=== PATIENT | female | born 1945 | race Caucasian/White ===

== ENCOUNTER 2020-11-30 09:54 | Inpatient (IN) | payer MEDICARE, OTHER, SELFPAY ==
[2020-11-30] VITALS (22 sets, daily range): BP systolic 111–140; BP diastolic 65–96; PULSE 69–115; RESP 12–41; TEMP 37.2–38.4; O2SAT 85–99; BMI 23.1; BMI 25.4
--- NOTE | 2020-11-30 09:58 | EKG12_ITS ---
Test Reason : SOB Blood Pressure : / mmHG Vent. Rate : 112 BPM Atrial Rate : 112 BPM P-R Int : 120 ms QRS Dur : 090 ms QT Int : 330 ms P-R-T Axes : 031 -36 027 degrees QTc Int : 450 ms Sinus tachycardia Left axis deviation Low voltage QRS (Limb Leads) Abnormal ECG Confirmed by LUCÍA CARLSON, YESSY ([id number]), video news editor LAKSHMI BEVERLY ([id number]) on 12/04/2020 12:19:33 PM Referred By: EMELYN Confirmed By:YESSY CASTREJON MD
--- NOTE | 2020-11-30 09:59 | CT_ITS ---
STUDY: CT BRAIN WITHOUT CONTRAST REASON FOR EXAM: Female, 75 years old. AMS RADIATION DOSAGE (If Supplied By Facility): CTDIvol = ( 44.99 ) mGy, DLP = ( 745.49 ) mGycm TECHNIQUE: Transaxial CT imaging of the brain was performed without administration of intravenous contrast material. Individualized dose optimization techniques were used for this CT. COMPARISON: No relevant priors. FINDINGS: Normal soft tissue structures. Normal calvarium. There is mild cerebral atrophy with widening of the extra-axial spaces and ventricular dilatation. Normal white matter tracts of the cerebral hemispheres. Normal basal ganglia and thalami. Normal brainstem. There is mild cerebellar atrophy. There is no intracranial hemorrhage. There are no findings of an acute ischemic infarction. Normal visualized paranasal sinuses. CT/Brain/Head without Contrast IMPRESSION: Chronic involutional changes of the brain. Electronically Signed: Luis Carlos Cole MD at 11:14 EDT , Service support ,
--- NOTE | 2020-11-30 10:01 | EDS_ITS ---
HPI History of Present Illness Chief Complaint: Shortness of Breath Informant: EMS Limited: other (Obtunded) Narrative Narrative: Patient is a 75-year-old female presenting from home via EMS for altered mental status and erratic breathing. Patient lives at home with her son. Per report from EMS, son notes the patient seem to be breathing erratically around 4:45 AM. She continued to have erratic breathing and was unresponsive so the son called EMS this morning. Per EMS she was 35% on room air. She was placed on a nonrebreather. Her glucose was 181. She had a temperature of 102.1. Son reports that patient is healthy and does not have any medical problems. Her son is not at the bedside yet. Patient did have an episode of vomiting in route is given a dose of IM Zofran. PFSH PFSH Medical History (Updated 11/30/20 @ 18:[address] Suzanne Varner, DO) Anxiety Depression Kidney stones Migraines Pancreatitis Rheumatoid arthritis Vaginal prolapse Home Medications [id number] [Excedrin Extra Strength] 2 tab PO Q6H PRN 11/30/20 [History Last Taken Unknown] multivitamin 1 cap PO DAILY 11/30/20 [History Last Taken Unknown] Allergy/AdvReac Type Severity Reaction Status Date / Time No Known Allergies Allergy Verified 11/30/20 11:39 Surgical History (Updated 11/30/20 @ 14:54 by Jeniffer Jarvis) History of appendectomy History of cholecystectomy Social History (Updated 11/30/20 @ 12:[address] Sonny Phillips, ) household members: family Smoking Status: Never smoker substance use type: does not use ROS ROS ED Review of Systems ROS Unobtainable: due to encephalopathy EXAM Physical Exam Const Vital Signs: 11/30/20 09:56 11/30/20 10:05 11/30/20 11:48 Temperature 101.2 F H 101.2 F H Temperature Source Temporal Core Pulse Rate 115 H 108 H 100 Respiratory Rate 41 H 38 H 28 H Respiratory Pattern Tachypnea Blood Pressure 140/84 H 111/87 H Blood Pressure Mean 102 95 Pulse Ox 85 98 91 Oxygen Delivery Method Nasal Cannula Bi-pap Oxygen Flow Rate (L/min) 16 Fraction of Inspired Oxygen (FIO2) 100 Positive well nourished and well developed General Appearance ED: well developed HEENT Reports moist mucous membranes Negative for trauma Eyes EOMs intact bilaterally Neck supple and no JVD Chest Wall inspection of chest normal Resp Resp Narrative: Tachypneic, transmitted upper airway noises. No appreciated crackles Auscultation: Negative for rhonchi, wheezes or diminished lung sounds Cardio no murmurs Rate: tachycardic GI normal to inspection, nondistended, normoactive bowel sounds Extremity normal to inspection Extremity Narrative: No obvious deformity Neuro no sensory deficits noted Neuro Narrative: Patient was all extremities to pain but does not follow commands. No lateralizing neurologic deficits noted [place] Coma Scale: document GCS findings To Voice Withdraws to Pain Confused 11 Sensorium / Orientation: orientation impaired and lethargic Skin no rashes or lesions noted MDM MDM MDM Narrative Medical decision making narrative: Patient is brought to the emergency room via EMS. She was found unresponsive by son around 9 AM. She is significantly hypoxic and obtunded per EMS. Patient placed on nonrebreather in route. She was given a dose of Zofran in route for an episode of vomiting. On arrival patient's O2 saturation is improving however she still hypoxic. She is febrile. Concern is that she has infection causing hypoxia and encephalopathy. She does not have any focal neurologic deficits. She is minimally responsive does improve while in the ER. Patient found to have a mild LEI, elevated troponin of 1.120 and an elevated lactate of 5.0. I suspect this is from hypoxia. Patient is not have any acute EKG changes consistent with ACS. Her Covid test is positive and her chest x-ray is consistent with COVID-19 pneumonia. Patient is given IV Decadron. She is placed on BiPAP for hypoxia and work of breathing. Given the amount of hypoxia she is having I did obtain a CTA to rule out associated PE. This was consistent with Covid pneumonia but no PE. Patient be admitted to the ICU for further treatment and monitoring. As she is given a liter of fluid in the ED. Son did arrive to the bedside. He states that she has been having symptoms consistent with a sinus infection/ear pain for the past 3 to 4 days. She started to feel more tired last night. Her respiratory symptoms seem to start last night as well. No known sick contacts. Has not had a Covid vaccine. Lab Data Labs: Laboratory Results - last 24 hr 11/30/20 11/30/20 11/30/20 10:00 10:00 10:00 WBC 11.4 H RBC 4.79 Hgb 14.6 Hct 43.4 MCV 90.6 MCH 30.5 MCHC 33.6 RDW Std Deviation 43.4 RDW Coeff of Leah 13.0 Plt Count 227 MPV 9.4 Immature Gran % (Auto) 1.800 H Neut % (Auto) 82.4 H Lymph % (Auto) 6.4 L [place] % (Auto) 6.6 Eos % (Auto) 2.5 Baso % (Auto) 0.3 Absolute Neuts (auto) 9.4 H Absolute Lymphs (auto) 0.73 L Nucleated RBC % 0 PT 13.6 INR 1.1 APTT 24.2 D-Dimer Quant (PE/DVT) Sodium 138 Potassium 3.8 Chloride 101 Carbon Dioxide 25.0 Anion Gap 12 BUN 34 H Creatinine 1.35 H Estim Creat Clear Calc 30.24 Est GFR (MDRD) Af Amer 49 L Est GFR (MDRD) Non-Af 41 L BUN/Creatinine Ratio 25.2 H Glucose 146 H Lactic Acid Calcium 9.3 Total Bilirubin 0.70 AST 78 H ALT 41 Alkaline Phosphatase 106 Total Creatine Kinase 226 H Troponin I 1.120 H* Total Protein 7.5 Albumin 2.7 L Globulin 4.8 H Albumin/Globulin Ratio 0.6 L Procalcitonin Urine Color Urine Clarity Urine pH Ur Specific [place] Urine Protein Urine Glucose (UA) Urine Ketones Urine Occult Blood Urine Nitrite Urine Bilirubin Urine Urobilinogen Ur Leukocyte Esterase Urine RBC Urine WBC Ur Squamous Epith Cells Urine Bacteria Fine Granular Casts Urine Mucus 11/30/20 11/30/20 11/30/20 10:00 10:00 10:00 WBC RBC Hgb Hct MCV MCH MCHC RDW Std Deviation RDW Coeff of Leah Plt Count MPV Immature Gran % (Auto) Neut % (Auto) Lymph % (Auto) [place] % (Auto) Eos % (Auto) Baso % (Auto) Absolute Neuts (auto) Absolute Lymphs (auto) Nucleated RBC % PT INR APTT D-Dimer Quant (PE/DVT) 5.74 H* Sodium Potassium Chloride Carbon Dioxide Anion Gap BUN Creatinine Estim Creat Clear Calc Est GFR (MDRD) Af Amer Est GFR (MDRD) Non-Af BUN/Creatinine Ratio Glucose Lactic Acid 5.0 H* Calcium Total Bilirubin AST ALT Alkaline Phosphatase Total Creatine Kinase Troponin I Total Protein Albumin Globulin Albumin/Globulin Ratio Procalcitonin 0.27 H Urine Color Urine Clarity Urine pH Ur Specific [place] Urine Protein Urine Glucose (UA) Urine Ketones Urine Occult Blood Urine Nitrite Urine Bilirubin Urine Urobilinogen Ur Leukocyte Esterase Urine RBC Urine WBC Ur Squamous Epith Cells Urine Bacteria Fine Granular Casts Urine Mucus 11/30/20 10:25 WBC RBC Hgb Hct MCV MCH MCHC RDW Std Deviation RDW Coeff of Leah Plt Count MPV Immature Gran % (Auto) Neut % (Auto) Lymph % (Auto) [place] % (Auto) Eos % (Auto) Baso % (Auto) Absolute Neuts (auto) Absolute Lymphs (auto) Nucleated RBC % PT INR APTT D-Dimer Quant (PE/DVT) Sodium Potassium Chloride Carbon Dioxide Anion Gap BUN Creatinine Estim Creat Clear Calc Est GFR (MDRD) Af Amer Est GFR (MDRD) Non-Af BUN/Creatinine Ratio Glucose Lactic Acid Calcium Total Bilirubin AST ALT Alkaline Phosphatase Total Creatine Kinase Troponin I Total Protein Albumin Globulin Albumin/Globulin Ratio Procalcitonin Urine Color Yellow Urine Clarity Clear Urine pH 5.0 Ur Specific [place] 1.020 Urine Protein 30 H Urine Glucose (UA) Normal Urine Ketones 50 H Urine Occult Blood 25 H Urine Nitrite Negative Urine Bilirubin Negative Urine Urobilinogen Normal Ur Leukocyte Esterase Negative Urine RBC 0 SEEN Urine WBC 0 SEEN Ur Squamous Epith Cells 0 SEEN Urine Bacteria 0 SEEN Fine Granular Casts 0-5 SEEN Urine Mucus 0 SEEN ABG Data Attestation: I personally reviewed and interpreted this ABG as follows: Interpretation: Hypoxia with no hypercapnea ABG results: ABG 11/30/20 10:08 Specimen Type ART Sample Site R Radial pH 7.57 H Bicarbonate Actual 20.3 L Total CO2 21 Base Excess -2 O2 Saturation 94 L ABG pCO2 21.9 L ABG pO2 57 L Mateusz Test Positive O2 Delivery Device NRB Liter Flow 15.0 Radiography Chest X-Ray - ED: 1 View, Read by ED Physician, Read by Radiologist, Right Infiltrate and Left Infiltrate Diagnostic Testing: Radiology Impression Brain CT 11/30/20 09:59 IMPRESSION: Chronic involutional changes of the brain. Electronically Signed: Luis Calros Cole MD at 11:14 EDT , Service support , Chest X-Ray 11/30/20 10:40 IMPRESSION: Diffuse bilateral airspace disease worse in the left hemithorax. This most likely represents pulmonary edema. Electronically Signed: Luis Carlos Cole MD at 11:13 EDT , Service support , Chest CTA 11/30/20 11:40 IMPRESSION: Diffuse bilateral airspace disease involving both upper and lower lobes. This is more prominent in the left hemithorax. Electronically Signed: Luis Carlos Cole MD at 14:48 EDT , Service support , Rhythm Strip Rhythm Strip: Sinus Tach Rate: 112 Ectopy: None EKG Initial EKG: Attestation: I personally reviewed and interpreted this EKG as follows: Interpretation: Sinus Tachycardia Comments: Sinus tachycardia rate of 112 Left axis deviation Normal intervals Normal ST segments Critical Care Time Critical care time (excluding procedures): 30-74 minutes (45), Discussing w/Patient &/or Family/Program Eligibility Specialist, Arranging Admission or Transfer and Performing Direct Patient Care at Bedside Discharge Plan Dx/Rx/DC Orders Clinical Impression: Acute respiratory failure with hypoxia, COVID-19, Metabolic encephalopathy, Elevated troponin, Lactic acidosis Disposition Disposition: Acute Care [facility] Discharge Date/Time: 11/30/20 14:00
[2020-11-30 10:15] LABS: Allen Test Positive; Base Excess -2 mmol/L (-2 to +2); Bicarbonate 20.3 mmol/L (22-26); Blood Gas Specimen Type ART; O2 Delivery Device NRB; PO2 57 mmHG (75-100); SITE R Radial; SO2 94 % (95-99); Total Carbon Dioxide 21 mmol/L; pCO2 21.9 mmHg (35-45); pH 7.57 (7.35-7.45)
[2020-11-30 10:24] LABS: Absolute Lymphocyte Count 0.73 X10^3/uL (0.83-4.51); Absolute Neutrophil Count 9.4 X10^3/uL (2.0-7.7); Basophil# 0.03 X10^3/uL; Basophil% 0.3 % (0-1); Eosinophil# 0.29 X10^3/uL; Eosinophils% 2.5 % (0-5); Hematocrit 43.4 % (37-47); Hemoglobin 14.6 g/dL (12.0-15.0); Lymphocyte # 0.73 X10^3/ul (0.83-4.51); Lymphocyte % 6.4 % (19-41); Mean Corp Hgb Conc 33.6 g/dL (32-36); Mean Corpuscular Hgb 30.5 pg (27.0-32.0); Mean Corpuscular Volume 90.6 fL (81-99); Mean Platelet Vol. 9.4 fl (6.2-12.0); Monocyte# 0.75 X10^3/uL; Monocyte% 6.6 % (0-10); NRBC Flagged by Analyzer 0 % (0-5); Neutrophil # 9.38 X10^3/uL (2.7-7.7); Neutrophil % 82.4 % (47-70); Platelet Count 227 K/mm3 (150-450); RBC Distribution Width SD 43.4 fl (35.1-43.9); Red Blood Count 4.79 M/mm3 (4.2-5.4); White Blood Count 11.4 K/mm3 (4.4-11.0)
[2020-11-30] MEDS: Acetaminophen 650 MG Suppository RC (10:30)
[2020-11-30] MEDS: 0.9% Normal Saline 1,000 ML 999 ML IV (10:30)
[2020-11-30 10:32] LABS: International Normalized Ratio 1.1; Prothrombin Time (Protime)PT. 13.6 SECONDS (11.7-14.9)
[2020-11-30 10:33] LABS: Partial Thromboplast Time 24.2 Seconds (24.1-36.2)
[2020-11-30 10:36] LABS: Bacteria 0 SEEN /hpf (None Seen); Mucous, Urine 0 SEEN /hpf (<or=2+); Red Blood Cells-Urine 0 SEEN /hpf (0-5); Squamous Epithelial Cells - UA 0 SEEN /hpf (5-10); White Blood Cells 0 SEEN /hpf (0-5)
[2020-11-30 10:39] LABS: Color, Urine Yellow (Yellow); Glucose, Dipstick Normal (Normal); Ketone-Dipstick 50 mg/dl (Negative); Leukocyte Esterase-Dipstick Negative /ul (Negative); Nitrite-Dipstick Negative (Negative); Occult Blood-Urine 25 /ul (Negative); Protein-Dipstick 30 mg/dl (Negative); Urine Bilirubin Dipstick Negative (Negative); Urine Clarity Clear (Clear); Urine Urobilinogen Normal (Normal)
--- NOTE | 2020-11-30 10:40 | RAD_ITS ---
STUDY: X-RAY CHEST REASON FOR EXAM: Female, 75 years old. Hypoxia. The patient was found unresponsive. TECHNIQUE: Single AP portable view of the chest. COMPARISON: None. FINDINGS: EKG electrodes are seen. There is evidence of bilateral airspace disease worse in the left hemithorax. This most likely represents pulmonary edema. There is no demonstrated pleural abnormality. There is mild cardiac enlargement. Normal mediastinum and brenda. Normal visualized pulmonary arteries. There is atherosclerotic tortuosity of the aortic arch and descending thoracic aorta. Normal visualized thoracic spine. Normal visualized ribs, clavicles, and shoulders. There is no demonstrated abnormality of the visualized soft tissue structures of the upper abdomen. RAD/Chest 1 View (Portable) IMPRESSION: Diffuse bilateral airspace disease worse in the left hemithorax. This most likely represents pulmonary edema. Electronically Signed: Luis Carlos Cole MD at 11:13 EDT , Service support ,
[2020-11-30 10:46] LABS: Fine Granular Cast- Urine 0-5 SEEN /lpf (0-5)
[2020-11-30 10:47] LABS: ALB/GLOB Ratio 0.6 RATIO (0.9-2.4); AST(SGOT) 78 U/L (15-37); Alanine Aminotransfer ALT/SGPT 41 U/L (13-56); Albumin, Serum 2.7 g/dL (3.2-5.0); Alkaline Phosphatase 106 U/L (45-117); Anion Gap 12 (5-15); BUN 34 mg/dL (7-18); BUN/Creat Ratio 25.2 RATIO (10-20); CPK Total, Creatine Kinase 226 U/L (26-192); Calcium,Total 9.3 mg/dL (8.5-10.1); Chloride 101 mmol/L (98-107); Creatinine, Serum 1.35 mg/dL (0.55-1.02); EST Glomerular Filtration Rate 41 mL/min (>60); Est Glom Filt Rate - Afr Amer 49 mL/min (>60); Estimated Creatinine Clearance 30.24 ml/min; Globulin 4.8 g/dL (2.2-4.2); Glucose 146 mg/dL (74-106); Potassium 3.8 mmol/L (3.5-5.1); Protein, Total 7.5 g/dL (6.4-8.2); Sodium Level 138 mmol/L (136-145)
--- NOTE | 2020-11-30 11:40 | CT_ITS ---
STUDY: CTA CHEST REASON FOR EXAM: Female, 75 years old. Hypoxia, covid, concern for pe RADIATION DOSAGE (If Supplied By Facility): CTDIvol = ( 10.9 ) mGy, DLP = ( 269.01 ) mGycm TECHNIQUE: The examination was performed with the intravenous administration of IV 100mL Isovue-370. Post-processing of the angiographic images was performed, with multiplanar reformation and 3D reconstruction. Individualized dose optimization techniques were used for this CT. COMPARISON: None. FINDINGS: Normal enhancement of the main pulmonary artery and right and left pulmonary arteries. Normal enhancement of the bilateral peripheral pulmonary arteries. There is no demonstrated pulmonary embolism. Normal thoracic aorta and visualized great vessels. There is no demonstrated aortic dissection. Normal heart and pericardium. Normal mediastinum. Normal hilar regions. Normal visualized trachea and bronchi. The lungs are well expanded. Diffuse extensive bilateral airspace disease involving both upper and lower lobes. This is worse in the left hemithorax. Normal pleura. Normal chest wall structures. Normal osseous structures. Normal visualized upper abdomen. CT/CTA Chest W/WO Contrast IMPRESSION: Diffuse bilateral airspace disease involving both upper and lower lobes. This is more prominent in the left hemithorax. Electronically Signed: Luis Carlos Cole MD at 14:48 EDT , Service support ,
[2020-11-30] MEDS: dexAMETHasone 10 MG/ML Vial 6 MG IV (11:44)
--- NOTE | 2020-11-30 12:33 | PCM.HP.STD ---
HPI - General General Date of Admission: 11/30/20 HPI Narrative ZACHARY TALBERT, is a 75 F who presents presents with shortness of breath. Had been feeling ill for 3 days prior. Beginning with right ear pain and malaise. Today patient was found to be confused this AM and breathing erratically. EMS was contacted and pt was found to have a pulse ox of 95% on room air. She was placed on a NRB and sent to the ED. She was placed on BiPAP and sats increased to 90% on 100% FiO2. Mental status has since improved. Rapid COVID-19 positive in ED. Pt received 6mg of IV dexamethasone in ED. Pt did not received the COVID-19 vaccination due to concern as she had an adverse reaction with the Zoster Vaccination which led to pancreas issue. [facility] Medical History Pancreatitis no medical history Allergy/AdvReac Type Severity Reaction Status Date / Time No Known Allergies Allergy Verified 11/30/20 11:39 other (no COPD. No asthma.) Surgical History History of cholecystectomy Social History (Updated 11/30/20 @ 12:[address] Sonny Phillips DO) household members: family Smoking Status: Never smoker substance use type: does not use ROS ROS Narrative All review of systems were negative except as mentioned above in the history of present illness and the other review of systems. Constitutional Constitutional: Reports chills, fever(s) and malaise Eyes Eyes: Reports blurry vision and change in vision Respiratory/Chest Respiratory/Chest: Reports dyspnea, productive cough and shortness of breath at rest; Denies excessive phlegm production Gastrointestinal Gastrointestinal: Reports nausea and vomiting; Denies abdominal pain Vital Signs Vital Signs Vital Signs: 11/30/20 09:56 11/30/20 10:05 11/30/20 11:03 Temperature 38.4 C H Temperature Source Temporal Pulse Rate 115 H 108 H Respiratory Rate 41 H 38 H Respiratory Pattern Tachypnea Blood Pressure 140/84 H Blood Pressure Mean 102 Pulse Ox 85 98 Oxygen Delivery Method Nasal Cannula Oxygen Flow Rate (L/min) 16 Fraction of Inspired Oxygen (FIO2) 100 100 11/30/20 11:47 11/30/20 11:48 Temperature 38.4 C H Temperature Source Core Pulse Rate 100 Respiratory Rate 28 H Respiratory Pattern Blood Pressure 111/87 H Blood Pressure Mean 95 Pulse Ox 91 Oxygen Delivery Method Bi-pap Oxygen Flow Rate (L/min) Fraction of Inspired Oxygen (FIO2) 50 Physical Exam Const alert and no apparent distress Constitutional Narrative: on BiPAP HEENT normocephalic and hearing grossly normal bilaterally Eyes Eyes Narrative: no icterus Neck no lymphadenopathy Resp normal respiratory effort Resp Narrative: coarse breath sounds bilaterally. Cardio regular rate, regular rhythm, S1 normal heart sound and S2 normal heart sound GI normal to inspection, nondistended, normoactive bowel sounds, non-tender and non-distended Extremity normal to inspection and no clubbing, cyanosis or edema Skin no rashes or lesions noted and no wounds Neuro Neuro Narrative: no clonus. normal paterllar DTRs Psych affect normal Lab / Micro Data Result Diagrams: 11/30/20 10:00 11/30/20 10:00 Labs: Laboratory Results - last 24 hr 11/30/20 11/30/20 11/30/20 10:00 10:00 10:00 WBC 11.4 H RBC 4.79 Hgb 14.6 Hct 43.4 MCV 90.6 MCH 30.5 MCHC 33.6 RDW Std Deviation 43.4 RDW Coeff of Leah 13.0 Plt Count 227 MPV 9.4 Immature Gran % (Auto) 1.800 H Neut % (Auto) 82.4 H Lymph % (Auto) 6.4 L [place] % (Auto) 6.6 Eos % (Auto) 2.5 Baso % (Auto) 0.3 Absolute Neuts (auto) 9.4 H Absolute Lymphs (auto) 0.73 L Nucleated RBC % 0 PT 13.6 INR 1.1 APTT 24.2 Sodium 138 Potassium 3.8 Chloride 101 Carbon Dioxide 25.0 Anion Gap 12 BUN 34 H Creatinine 1.35 H Estim Creat Clear Calc 30.24 Est GFR (MDRD) Af Amer 49 L Est GFR (MDRD) Non-Af 41 L BUN/Creatinine Ratio 25.2 H Glucose 146 H Lactic Acid Calcium 9.3 Total Bilirubin 0.70 AST 78 H ALT 41 Alkaline Phosphatase 106 Total Creatine Kinase 226 H Troponin I 1.120 H* Total Protein 7.5 Albumin 2.7 L Globulin 4.8 H Albumin/Globulin Ratio 0.6 L Urine Color Urine Clarity Urine pH Ur Specific [place] Urine Protein Urine Glucose (UA) Urine Ketones Urine Occult Blood Urine Nitrite Urine Bilirubin Urine Urobilinogen Ur Leukocyte Esterase Urine RBC Urine WBC Ur Squamous Epith Cells Urine Bacteria Fine Granular Casts Urine Mucus 11/30/20 11/30/20 10:00 10:25 WBC RBC Hgb Hct MCV MCH MCHC RDW Std Deviation RDW Coeff of Leah Plt Count MPV Immature Gran % (Auto) Neut % (Auto) Lymph % (Auto) [place] % (Auto) Eos % (Auto) Baso % (Auto) Absolute Neuts (auto) Absolute Lymphs (auto) Nucleated RBC % PT INR APTT Sodium Potassium Chloride Carbon Dioxide Anion Gap BUN Creatinine Estim Creat Clear Calc Est GFR (MDRD) Af Amer Est GFR (MDRD) Non-Af BUN/Creatinine Ratio Glucose Lactic Acid 5.0 H* Calcium Total Bilirubin AST ALT Alkaline Phosphatase Total Creatine Kinase Troponin I Total Protein Albumin Globulin Albumin/Globulin Ratio Urine Color Yellow Urine Clarity Clear Urine pH 5.0 Ur Specific [place] 1.020 Urine Protein 30 H Urine Glucose (UA) Normal Urine Ketones 50 H Urine Occult Blood 25 H Urine Nitrite Negative Urine Bilirubin Negative Urine Urobilinogen Normal Ur Leukocyte Esterase Negative Urine RBC 0 SEEN Urine WBC 0 SEEN Ur Squamous Epith Cells 0 SEEN Urine Bacteria 0 SEEN Fine Granular Casts 0-5 SEEN Urine Mucus 0 SEEN Micro: Microbiology 11/30/20 10:15 SARS-CoV-2 Antigen (Rapid) - Final Nasal Secretion SARS-CoV-2 (COVID 19) ABG Data ABG results: ABG 11/30/20 10:08 Specimen Type ART Sample Site R Radial pH 7.57 H Bicarbonate Actual 20.3 L Total CO2 21 Base Excess -2 O2 Saturation 94 L ABG pCO2 21.9 L ABG pO2 57 L Mateusz Test Positive O2 Delivery Device NRB Liter Flow 15.[address] 11/30/20 09:59 IMPRESSION: Chronic involutional changes of the brain. Electronically Signed: Luis Carlos Cole MD at 11:14 EDT , Service support , Chest X-Ray 11/30/20 10:40 IMPRESSION: Diffuse bilateral airspace disease worse in the left hemithorax. This most likely represents pulmonary edema. Electronically Signed: Luis Carlos Cole MD at 11:13 EDT , Service support , Assessment & Plan Assessment/Plan (1) Acute respiratory failure with hypoxia: Status: Acute Code(s): J96.01 - Acute respiratory failure with hypoxia Plan: on BiPAP wean oxygen as tolerated CTA chest ordered in ED to eval for PE (2) COVID-19: Status: Acute Code(s): U07.1 - COVID-19 Plan: date of onset around 11/27 start dexamethasone rapid test +. Son expressed concern that this is a false positive and demanded another test. I told him it was unlikely a false positive, and would treat her for COVID-19. Consult ID for further recommendations. I advised the patient to get vaccinated after she has completed quaranitine I advised her son, whom she lives with, to get tested and quarantine (3) Metabolic encephalopathy: Status: Acute Code(s): G93.41 - Metabolic encephalopathy Plan: resolved likely due to profound hypoxia head CT negative (4) Elevated troponin: Status: Acute Code(s): R77.8 - Other specified abnormalities of plasma proteins Plan: Suspect demand ischemia start therapeutic anticoagulation cycle troponins check echo (5) Lactic acidosis: Status: Acute Code(s): E87.2 - Acidosis Plan: 2/2 hypoxia monitor (6) Venous thromboembolism (VTE) prophylaxis provided on arrival: Status: Acute Plan: anticoagulation at present check CTA and d-dimer (7) Advance care planning: Status: Acute Code(s): Z71.89 - Other specified counseling Plan: DW patient, she wishes to be full code status at this time. Inpatient E&M: [id number] Init Hosp L3
--- NOTE | 2020-11-30 12:33 | CPS ---
all vent order documentation was on incorrect patient
[2020-11-30 12:41] LABS: D-Dimer Quantitative (DVT/PE) 5.74 FEU/ug/m (0.27-0.49)
--- NOTE | 2020-11-30 12:46 | ECHOD_ITS ---
Reason For Study: ELEVATED TROPONIN Procedure This was a 2D Doppler, Color Flow transthoracic echocardiogram. Exam performed portable in ICU/CCU. Left Ventricle Normal left ventricle. Septal motion consistent with IVCD. The estimated ejection fraction is EF 55- 60% %. Right Ventricle Normal right ventricle. Normal systolic function. Atria Normal left atrium. Normal right atrium. Mitral Valve The mitral valve is structurally normal. No prolapse or stenosis seen. Trivial mitral valve insufficiency. Tricuspid Valve Normal tricuspid valve. Unable to estimate RV systolic pressure due to insufficient tricuspid regurgitant envelope. Aortic Valve Normal aortic valve. Mild (1+) aortic valve insufficiency. Pulmonic Valve The pulmonic valve is not well visualized. Great Vessels Normal aortic root. Pericardium/Pleural No pericardial effusion. MMode/2D Measurements & Calculations LVIDd: 4.3 cm IVSd: 0.98 cm Ao root diam: 3.0 cm LVIDs: 2.6 cm LVPWd: 1.00 cm LA dimension: 2.5 cm RVDd: 3.1 cm FS: 38.8 % LAV(MOD-sp2): 41.0 ml RA A4 area: 11.3 cm2 Time Measurements MV dec time: 0.18 sec Doppler Measurements & Calculations MV E max darren: 62.8 cm/sec Lat Peak E' Darren: 6.9 cm/sec Med Peak E' Darren: 10.6 cm/sec MV A max darren: 77.9 cm/sec E/E' lat: 9.1 E/E' med: 5.9 MV E/A: 0.81 Ao V2 max: 117.3 cm/sec LV V1 max: 84.7 cm/sec PA V2 max: 85.7 cm/sec Ao max P.5 mmHg LV V1 max P.9 mmHg ECHO/Echo Complete Interpretation Summary The estimated ejection fraction is EF 55-60% %. Mild Disatolic Dysfunction Mild AI Ordering Physician: Sonny Phillips Referring Physician: ROMIE PCP Performed By: Isabella Alvarez RDCS, RVT
[2020-11-30 14:20] LABS: Reflex Lactate? Y
[2020-11-30 15:29] LABS: Lactic Acid 2.6 mmol/L (0.4-1.9)
--- NOTE | 2020-11-30 15:31 | CPS ---
Changed to AVAPS per Dr. Sin.
--- NOTE | 2020-11-30 16:03 | EX.PCM.CONCC ---
Assessment & Plan Assessment/Plan (1) COVID-19: Status: Acute Code(s): U07.1 - COVID-19 (2) Acute respiratory failure with hypoxia: Status: Acute Code(s): J96.01 - Acute respiratory failure with hypoxia (3) Metabolic encephalopathy: Status: Acute Code(s): G93.41 - Metabolic encephalopathy (4) Elevated troponin: Status: Acute Code(s): R77.8 - Other specified abnormalities of plasma proteins (5) Lactic acidosis: Status: Acute Code(s): E87.2 - Acidosis Plan: RECOMMENDATIONS: 1. Transition BiPAP to AVAPS with elevated EPAP 2. Wean oxygen as tolerated 3. Initiate Decadron. Hold Remdesivir 4. Monitor with telemetry 5. Clarified full CODE STATUS 6. Empiric Lovenox therapy IMPRESSIONS: 1. Acute hypoxic respiratory failure secondary to COVID-19 pneumonia Patient appears to have had a protracted course of over 2 to 3 weeks culminating in hypoxic respiratory failure. CT scan shows extensive groundglass infiltrates and no PE. Patient does not have significant mediastinal lymphadenopathy. However, given protracted presentation, Remdesivir would not be indicated. Initiation of Decadron would be appropriate. Will transition to AVAPS to help with respiratory muscle fatigue. EPAP will be increased to help with AA gradient. Patient did verify that she is willing to be intubated if necessary. Patient does not have a smoking or asthma history, so bronchodilators are likely not necessary unless patient develops wheezing on exam. 2. Metabolic encephalopathy Clinical suspicion for anoxia leading to metabolic encephalopathy on presentation. Patient is much improved at this time. CT of the head was not suggestive of any acute infarct. Patient does not have any significant metabolic derangements to suggest an alternative etiology. Patient does not have any medications that would lead to this finding. 3. Elevated troponin/elevated lactate Clinical suspicion for global ischemia secondary to saturations of 35% on room air. Telemetry will be continued. Continue to monitor and trend troponins. Anticipate improvement following control of problem #1. 4. Possible CKD stage III versus acute kidney injury Patient does not have routine medical care. Creatinine is slightly elevated for body size at 1.35. Unclear if this represents acute kidney injury secondary to hypoxia versus chronic kidney disease. 5. Poor primary care/protracted presentation/advanced age Complicates care, management, recovery and prognosis. Patient would benefit from establishing a routine relationship with a PCP on discharge. TIME: 32 minutes critical care time spent addressing patient's acute hypoxic respiratory failure, metabolic encephalopathy, elevated lactate, review of all data and collaboration with care team (3 PM to 4:20 PM) HPI Consult Data Date of Consult: 11/30/20 HPI Narrative HPI Narrative: ZACHARY TALBERT, is a 75 F, with past medical history listed below, who presented to [facility] on 11/30/2020 secondary to being unresponsive. Patient reportedly was breathing erratically at about 4:45 AM and then became unresponsive. EMS was called and patient was noted to be 35% on room air. Patient was placed on a nonrebreather with some improvement. Glucose at that time was noted to be 181 and temperature was 102.1. Patient reportedly is healthy, but patient admits that she has not been seen by her PCP in years. Patient states she did not get a COVID-19 vaccination secondary to previous problems with vaccination leading to pancreatitis. Patient reportedly did have an episode of emesis in route and was given IM Zofran. In the emergency department, patient was placed on BiPAP secondary to marginal saturations on a nonrebreather. BiPAP was increased to 90% FiO2 to maintain saturations. Mental status was noted to be improved. Rapid COVID-19 came back positive. Patient was given IV Decadron. Patient was noted to be febrile at 38.4 ?F and tachycardic at 108 bpm. Laboratory data was significant for white blood cell count of 11.4, BUN of 34 and creatinine of 1.35. Glucose was within normal limits. Troponin was elevated at 1.12. Lactate was elevated at 5 and UA was unremarkable. An ABG on a nonrebreather showed an elevated AA gradient with a respiratory alkalosis. A chest x-ray showed bilateral infiltrates and a CTA of the chest showed no PE with diffuse bilateral airspace disease, worse on the left. Since being in the intensive care unit, patient feels subjectively improved. FiO2 has been able to be weaned to 60%. Patient states that she started to feel ill approximately 3 weeks ago with a cold that did not go away. Patient states she started to develop fever approximately 3 days ago and that is when her breathing started to have issues. Patient states she is never been a smoker and has never been told she has any respiratory issues. Patient has not required inhalers or oxygen previously. Review of systems otherwise negative from a constitutional, HEENT, respiratory, cardiovascular, GI, genitourinary, musculoskeletal, skin, neurologic, psychiatric and hematologic system unless stated above. [facility] Medical History (Updated 11/30/20 @ 14:54 by Jeniffer Jarvis) Anxiety Depression Kidney stones Migraines Pancreatitis Rheumatoid arthritis Home Medications [id number] [Excedrin Extra Strength] 2 tab PO Q6H PRN 11/30/20 [History Last Taken Unknown] multivitamin 1 cap PO DAILY 11/30/20 [History Last Taken Unknown] Allergy/AdvReac Type Severity Reaction Status Date / Time No Known Allergies Allergy Verified 11/30/20 11:39 Surgical History (Updated 11/30/20 @ 14:54 by Jeniffer Jarvis) History of appendectomy History of cholecystectomy Social History (Updated 11/30/20 @ 12:[address] Sonny Phillips, DO) household members: family Smoking Status: Never smoker substance use type: does not use ROS ROS Narrative See HPI Physical Exam Const alert and oriented x3 Constitutional Narrative: Interactive with no apparent distress on BiPAP therapy General Appearance: cooperative and well developed HEENT normocephalic and head/scalp atraumatic Eyes PERRL, EOMs intact bilaterally, conjunctivae normal and no scleral icterus Neck full ROM Lymph Lymphatic: no lymphadenopathy noted Resp Auscultation: diminished lung sounds; Negative for rales, rhonchi or wheezes Cardio regular rate, regular rhythm, S1 normal heart sound, S2 normal heart sound, no murmurs, no rub and no gallops Peripheral Pulses: pulses 2+ throughout GI normal to inspection, nondistended, normoactive bowel sounds no CVA tenderness Extremity no clubbing, cyanosis or edema Peripheral Pulses: Yes pulses 2+ throughout Skin no rashes or lesions noted Neuro oriented x3 and CN's II-XII intact bilaterally Psych cooperative and affect normal Lab / Micro Data Result Diagrams: 11/30/20 10:00 11/30/20 10:00 Labs: Laboratory Results - last 24 hr 11/30/20 11/30/20 11/30/20 10:00 10:00 10:00 WBC 11.4 H RBC 4.79 Hgb 14.6 Hct 43.4 MCV 90.6 MCH 30.5 MCHC 33.6 RDW Std Deviation 43.4 RDW Coeff of Elah 13.0 Plt Count 227 MPV 9.4 Immature Gran % (Auto) 1.800 H Neut % (Auto) 82.4 H Lymph % (Auto) 6.4 L [place] % (Auto) 6.6 Eos % (Auto) 2.5 Baso % (Auto) 0.3 Absolute Neuts (auto) 9.4 H Absolute Lymphs (auto) 0.73 L Nucleated RBC % 0 PT 13.6 INR 1.1 APTT 24.2 D-Dimer Quant (PE/DVT) Sodium 138 Potassium 3.8 Chloride 101 Carbon Dioxide 25.0 Anion Gap 12 BUN 34 H Creatinine 1.35 H Estim Creat Clear Calc 30.24 Est GFR (MDRD) Af Amer 49 L Est GFR (MDRD) Non-Af 41 L BUN/Creatinine Ratio 25.2 H Glucose 146 H Lactic Acid Calcium 9.3 Total Bilirubin 0.70 AST 78 H ALT 41 Alkaline Phosphatase 106 Total Creatine Kinase 226 H Troponin I 1.120 H* Total Protein 7.5 Albumin 2.7 L Globulin 4.8 H Albumin/Globulin Ratio 0.6 L Urine Color Urine Clarity Urine pH Ur Specific [place] Urine Protein Urine Glucose (UA) Urine Ketones Urine Occult Blood Urine Nitrite Urine Bilirubin Urine Urobilinogen Ur Leukocyte Esterase Urine RBC Urine WBC Ur Squamous Epith Cells Urine Bacteria Fine Granular Casts Urine Mucus 11/30/20 11/30/20 11/30/20 10:00 10:00 10:25 WBC RBC Hgb Hct MCV MCH MCHC RDW Std Deviation RDW Coeff of Leah Plt Count MPV Immature Gran % (Auto) Neut % (Auto) Lymph % (Auto) [place] % (Auto) Eos % (Auto) Baso % (Auto) Absolute Neuts (auto) Absolute Lymphs (auto) Nucleated RBC % PT INR APTT D-Dimer Quant (PE/DVT) 5.74 H* Sodium Potassium Chloride Carbon Dioxide Anion Gap BUN Creatinine Estim Creat Clear Calc Est GFR (MDRD) Af Amer Est GFR (MDRD) Non-Af BUN/Creatinine Ratio Glucose Lactic Acid 5.0 H* Calcium Total Bilirubin AST ALT Alkaline Phosphatase Total Creatine Kinase Troponin I Total Protein Albumin Globulin Albumin/Globulin Ratio Urine Color Yellow Urine Clarity Clear Urine pH 5.0 Ur Specific [place] 1.020 Urine Protein 30 H Urine Glucose (UA) Normal Urine Ketones 50 H Urine Occult Blood 25 H Urine Nitrite Negative Urine Bilirubin Negative Urine Urobilinogen Normal Ur Leukocyte Esterase Negative Urine RBC 0 SEEN Urine WBC 0 SEEN Ur Squamous Epith Cells 0 SEEN Urine Bacteria 0 SEEN Fine Granular Casts 0-5 SEEN Urine Mucus 0 SEEN 11/30/20 11/30/20 13:05 14:50 WBC RBC Hgb Hct MCV MCH MCHC RDW Std Deviation RDW Coeff of Leah Plt Count MPV Immature Gran % (Auto) Neut % (Auto) Lymph % (Auto) [place] % (Auto) Eos % (Auto) Baso % (Auto) Absolute Neuts (auto) Absolute Lymphs (auto) Nucleated RBC % PT INR APTT D-Dimer Quant (PE/DVT) Sodium Potassium Chloride Carbon Dioxide Anion Gap BUN Creatinine Estim Creat Clear Calc Est GFR (MDRD) Af Amer Est GFR (MDRD) Non-Af BUN/Creatinine Ratio Glucose Lactic Acid 2.6 H* Calcium Total Bilirubin AST ALT Alkaline Phosphatase Total Creatine Kinase Troponin I 1.670 H* Total Protein Albumin Globulin Albumin/Globulin Ratio Urine Color Urine Clarity Urine pH Ur Specific [place] Urine Protein Urine Glucose (UA) Urine Ketones Urine Occult Blood Urine Nitrite Urine Bilirubin Urine Urobilinogen Ur Leukocyte Esterase Urine RBC Urine WBC Ur Squamous Epith Cells Urine Bacteria Fine Granular Casts Urine Mucus Micro: Microbiology 11/30/20 10:15 SARS-CoV-2 Antigen (Rapid) - Final Nasal Secretion SARS-CoV-2 (COVID 19) ABG Data ABG results: ABG 11/30/20 10:08 Specimen Type ART Sample Site R Radial pH 7.57 H Bicarbonate Actual 20.3 L Total CO2 21 Base Excess -2 O2 Saturation 94 L ABG pCO2 21.9 L ABG pO2 57 L Mateusz Test Positive O2 Delivery Device NRB Liter Flow 15.[address] 11/30/20 09:59 IMPRESSION: Chronic involutional changes of the brain. Electronically Signed: Luis Carlos Cole MD at 11:14 EDT , Service support , Chest X-Ray 11/30/20 10:40 IMPRESSION: Diffuse bilateral airspace disease worse in the left hemithorax. This most likely represents pulmonary edema. Electronically Signed: Luis Carlos Cole MD at 11:13 EDT , Service support , Chest CTA 11/30/20 11:40 IMPRESSION: Diffuse bilateral airspace disease involving both upper and lower lobes. This is more prominent in the left hemithorax. Electronically Signed: Luis Carlos Cole MD at 14:48 EDT , Service support , Charges/Coding 9xxxx: [id number] Critical care first hour
--- NOTE | 2020-11-30 17:03 | CHAPLAIN ---
Type of Pastoral Visit _x__ Initial Visit ___ Follow-up Visit ___ On-call Visit ___ General Patient Visit ___ Spiritual Assessment ___ Family Conference ___ Bereavement ___ Rapid Response ___ Code Blue ___ Other (describe below) Pastoral Care Referral From _x__ Patient ___ Family _x__ Nurse ___ Physician ___ Manufacturing Area Manager ___ Cryogenics Engineer ___ Other (describe below) Sacrament/Intervention ___ Active listening ___ Anointing ___ Jehovah'S Witness ___ Bereavement ___ Communion ___ Bhavya exploration ___ ___ Life review ___ Prayer ___ Reconciliation ___ Sacrament of Sick ___ Supportive presence ___ Wedding _x__ Other (describe below) Pastoral Comments patient is in isolation room and is unable to talk on phone at this time due to Bi-Pap; however, message left on calling card concerning prayer support given to RN for her next encounter in room; will follow situation to be available as needed
[2020-11-30] MEDS: Enoxaparin 60 MG/0.6 ML Syringe SC (17:18)
[2020-11-30 17:21] LABS: Procalcitonin 0.27 ng/mL (0.00-0.09)
[2020-12-01] VITALS (37 sets, daily range): BP systolic 110–153; BP diastolic 66–99; PULSE 61–90; RESP 14–39; TEMP 36.9–37.6; O2SAT 60–100
[2020-12-01] MEDS: Enoxaparin 60 MG/0.6 ML Syringe SC ×2 (04:50→16:19)
[2020-12-01 05:56] LABS: Hematocrit 42.2 % (37-47); Hemoglobin 13.8 g/dL (12.0-15.0); Mean Corp Hgb Conc 32.7 g/dL (32-36); Mean Corpuscular Hgb 30.5 pg (27.0-32.0); Mean Corpuscular Volume 93.2 fL (81-99); Mean Platelet Vol. 9.5 fl (6.2-12.0); Platelet Count 222 K/mm3 (150-450); RBC Distribution Width CV 13.3 % (11.6-14.6); RBC Distribution Width SD 45.6 fl (35.1-43.9); Red Blood Count 4.53 M/mm3 (4.2-5.4); White Blood Count 12.8 K/mm3 (4.4-11.0)
[2020-12-01 06:15] LABS: ALB/GLOB Ratio 0.6 RATIO (0.9-2.4); AST(SGOT) 70 U/L (15-37); Alanine Aminotransfer ALT/SGPT 37 U/L (13-56); Albumin, Serum 2.5 g/dL (3.2-5.0); Alkaline Phosphatase 99 U/L (45-117); Anion Gap 8 (5-15); BUN 38 mg/dL (7-18); BUN/Creat Ratio 36.5 RATIO (10-20); Chloride 105 mmol/L (98-107); Creatinine, Serum 1.04 mg/dL (0.55-1.02); EST Glomerular Filtration Rate 55 mL/min (>60); Est Glom Filt Rate - Afr Amer 67 mL/min (>60); Estimated Creatinine Clearance 34.09 ml/min; Globulin 4.5 g/dL (2.2-4.2); Glucose 155 mg/dL (74-106); Potassium 3.6 mmol/L (3.5-5.1); Sodium Level 142 mmol/L (136-145)
--- NOTE | 2020-12-01 06:53 | PCM.PN.INT ---
Subjective Subjective: Patient did okay overnight. Patient reports subjective improvement in dyspnea. Oxygenation requirements have improved significantly down to 45%. Patient is not reporting any significant cough. Nursing reports patient has significant vaginal prolapse, but otherwise have no concern Objective Data Objective Data Vital Signs: Vital Signs Temp Pulse Resp BP Pulse Ox 37.4 C H 76 32 H 148/81 H 96 12/01/20 05:00 12/01/20 06:50 12/01/20 06:50 12/01/20 05:00 12/01/20 06:50 Oxygen Flow Rate (L/min) 55 Oxygen Delivery Method Bi-pap Weight: 60.214 kg Body Mass Index (BMI) 25.4 Intake & Output: Intake and Output for Last 24 Hours 11/29/20 11/30/20 12/01/20 23:59 23:59 23:59 Intake Total 1000 / 1000 0 / 0 Output Total 750 / 950 200 / 200 Balance 250 / 50 -200 / -200 Lab / Micro Data Result Diagrams: 12/01/20 04:45 12/01/20 04:45 Labs: Laboratory Results - last 24 hr 11/30/20 11/30/20 11/30/20 10:00 10:00 10:00 WBC 11.4 H RBC 4.79 Hgb 14.6 Hct 43.4 MCV 90.6 MCH 30.5 MCHC 33.6 RDW Std Deviation 43.4 RDW Coeff of Leah 13.0 Plt Count 227 MPV 9.4 Immature Gran % (Auto) 1.800 H Neut % (Auto) 82.4 H Lymph % (Auto) 6.4 L [place] % (Auto) 6.6 Eos % (Auto) 2.5 Baso % (Auto) 0.3 Absolute Neuts (auto) 9.4 H Absolute Lymphs (auto) 0.73 L Nucleated RBC % 0 PT 13.6 INR 1.1 APTT 24.2 D-Dimer Quant (PE/DVT) Sodium 138 Potassium 3.8 Chloride 101 Carbon Dioxide 25.0 Anion Gap 12 BUN 34 H Creatinine 1.35 H Estim Creat Clear Calc 30.24 Est GFR (MDRD) Af Amer 49 L Est GFR (MDRD) Non-Af 41 L BUN/Creatinine Ratio 25.2 H Glucose 146 H Lactic Acid Calcium 9.3 Total Bilirubin 0.70 AST 78 H ALT 41 Alkaline Phosphatase 106 Total Creatine Kinase 226 H Troponin I 1.120 H* Total Protein 7.5 Albumin 2.7 L Globulin 4.8 H Albumin/Globulin Ratio 0.6 L Procalcitonin Urine Color Urine Clarity Urine pH Ur Specific [place] Urine Protein Urine Glucose (UA) Urine Ketones Urine Occult Blood Urine Nitrite Urine Bilirubin Urine Urobilinogen Ur Leukocyte Esterase Urine RBC Urine WBC Ur Squamous Epith Cells Urine Bacteria Fine Granular Casts Urine Mucus 11/30/20 11/30/20 11/30/20 10:00 10:00 10:00 WBC RBC Hgb Hct MCV MCH MCHC RDW Std Deviation RDW Coeff of Leah Plt Count MPV Immature Gran % (Auto) Neut % (Auto) Lymph % (Auto) [place] % (Auto) Eos % (Auto) Baso % (Auto) Absolute Neuts (auto) Absolute Lymphs (auto) Nucleated RBC % PT INR APTT D-Dimer Quant (PE/DVT) 5.74 H* Sodium Potassium Chloride Carbon Dioxide Anion Gap BUN Creatinine Estim Creat Clear Calc Est GFR (MDRD) Af Amer Est GFR (MDRD) Non-Af BUN/Creatinine Ratio Glucose Lactic Acid 5.0 H* Calcium Total Bilirubin AST ALT Alkaline Phosphatase Total Creatine Kinase Troponin I Total Protein Albumin Globulin Albumin/Globulin Ratio Procalcitonin 0.27 H Urine Color Urine Clarity Urine pH Ur Specific [place] Urine Protein Urine Glucose (UA) Urine Ketones Urine Occult Blood Urine Nitrite Urine Bilirubin Urine Urobilinogen Ur Leukocyte Esterase Urine RBC Urine WBC Ur Squamous Epith Cells Urine Bacteria Fine Granular Casts Urine Mucus 11/30/20 11/30/20 11/30/20 10:25 13:05 14:50 WBC RBC Hgb Hct MCV MCH MCHC RDW Std Deviation RDW Coeff of Leah Plt Count MPV Immature Gran % (Auto) Neut % (Auto) Lymph % (Auto) [place] % (Auto) Eos % (Auto) Baso % (Auto) Absolute Neuts (auto) Absolute Lymphs (auto) Nucleated RBC % PT INR APTT D-Dimer Quant (PE/DVT) Sodium Potassium Chloride Carbon Dioxide Anion Gap BUN Creatinine Estim Creat Clear Calc Est GFR (MDRD) Af Amer Est GFR (MDRD) Non-Af BUN/Creatinine Ratio Glucose Lactic Acid 2.6 H* Calcium Total Bilirubin AST ALT Alkaline Phosphatase Total Creatine Kinase Troponin I 1.670 H* Total Protein Albumin Globulin Albumin/Globulin Ratio Procalcitonin Urine Color Yellow Urine Clarity Clear Urine pH 5.0 Ur Specific [place] 1.020 Urine Protein 30 H Urine Glucose (UA) Normal Urine Ketones 50 H Urine Occult Blood 25 H Urine Nitrite Negative Urine Bilirubin Negative Urine Urobilinogen Normal Ur Leukocyte Esterase Negative Urine RBC 0 SEEN Urine WBC 0 SEEN Ur Squamous Epith Cells 0 SEEN Urine Bacteria 0 SEEN Fine Granular Casts 0-5 SEEN Urine Mucus 0 SEEN 11/30/20 12/01/20 12/01/20 16:15 04:45 04:45 WBC 12.8 H RBC 4.53 Hgb 13.8 Hct 42.2 MCV 93.2 MCH 30.5 MCHC 32.7 RDW Std Deviation 45.6 H RDW Coeff of Leah 13.3 Plt Count 222 MPV 9.5 Immature Gran % (Auto) Neut % (Auto) Lymph % (Auto) [place] % (Auto) Eos % (Auto) Baso % (Auto) Absolute Neuts (auto) Absolute Lymphs (auto) Nucleated RBC % PT INR APTT D-Dimer Quant (PE/DVT) Sodium 142 Potassium 3.6 Chloride 105 Carbon Dioxide 29.0 Anion Gap 8 BUN 38 H Creatinine 1.04 H Estim Creat Clear Calc 34.09 Est GFR (MDRD) Af Amer 67 Est GFR (MDRD) Non-Af 55 L BUN/Creatinine Ratio 36.5 H Glucose 155 H Lactic Acid Calcium 9.0 Total Bilirubin 0.50 AST 70 H ALT 37 Alkaline Phosphatase 99 Total Creatine Kinase Troponin I 1.630 H* Total Protein 7.0 Albumin 2.5 L Globulin 4.5 H Albumin/Globulin Ratio 0.6 L Procalcitonin Urine Color Urine Clarity Urine pH Ur Specific [place] Urine Protein Urine Glucose (UA) Urine Ketones Urine Occult Blood Urine Nitrite Urine Bilirubin Urine Urobilinogen Ur Leukocyte Esterase Urine RBC Urine WBC Ur Squamous Epith Cells Urine Bacteria Fine Granular Casts Urine Mucus Micro: Microbiology 11/30/20 10:15 Nasal Secretion SARS-CoV-2 Antigen (Rapid) - Final SARS-CoV-2 (COVID 19) ABG Data ABG results: ABG 11/30/20 10:08 Specimen Type ART Sample Site R Radial pH 7.57 H Bicarbonate Actual 20.3 L Total CO2 21 Base Excess -2 O2 Saturation 94 L ABG pCO2 21.9 L ABG pO2 57 L Mateusz Test Positive O2 Delivery Device NRB Liter Flow 15.0 Radiography Diagnostic Testing: Radiology Impression Brain CT 11/30/20 09:59 IMPRESSION: Chronic involutional changes of the brain. Electronically Signed: Luis Carlos Cole MD at 11:14 EDT , Service support , Chest X-Ray 11/30/20 10:40 IMPRESSION: Diffuse bilateral airspace disease worse in the left hemithorax. This most likely represents pulmonary edema. Electronically Signed: Luis Carlos Cole MD at 11:13 EDT , Service support , Chest CTA 11/30/20 11:40 IMPRESSION: Diffuse bilateral airspace disease involving both upper and lower lobes. This is more prominent in the left hemithorax. Electronically Signed: Luis Carlos Cole MD at 14:48 EDT , Service support , Rhythm Strip Rhythm Strip: Sinus Tach Rate: 112 Ectopy: None Physical Exam Const alert and oriented x3 Constitutional Narrative: Interactive with no apparent distress on BiPAP therapy General Appearance: cooperative and well developed HEENT normocephalic and head/scalp atraumatic Eyes PERRL, EOMs intact bilaterally, conjunctivae normal and no scleral icterus Neck full ROM Lymph Lymphatic: no lymphadenopathy noted Resp Auscultation: diminished lung sounds; Negative for rales, rhonchi or wheezes Cardio regular rate, regular rhythm, S1 normal heart sound, S2 normal heart sound, no murmurs, no rub and no gallops Peripheral Pulses: pulses 2+ throughout GI normal to inspection, nondistended, normoactive bowel sounds no CVA tenderness Extremity no clubbing, cyanosis or edema Skin no rashes or lesions noted Neuro oriented x3 and CN's II-XII intact bilaterally Psych cooperative and affect normal Assessment & Plan Assessment/Plan (1) COVID-19: Status: Acute Code(s): U07.1 - COVID-19 (2) Acute respiratory failure with hypoxia: Status: Acute Code(s): J96.01 - Acute respiratory failure with hypoxia (3) Metabolic encephalopathy: Status: Resolved Code(s): G93.41 - Metabolic encephalopathy (4) Elevated troponin: Status: Acute Code(s): R77.8 - Other specified abnormalities of plasma proteins (5) Lactic acidosis: Status: Resolved Code(s): E87.2 - Acidosis Plan: RECOMMENDATIONS: 1. Attempt Airvo for oxygenation. Continue AVAPS with sleep 2. Wean oxygen as tolerated 3. Initiate Decadron. Hold Remdesivir 4. Monitor with telemetry 5. Clarified full CODE STATUS 6. Empiric Lovenox therapy 7. Possible gynecology consult for vaginal prolapse IMPRESSIONS: 1. Acute hypoxic respiratory failure secondary to COVID-19 pneumonia Patient appears to have had a protracted course of over 2 to 3 weeks culminating in hypoxic respiratory failure. CT scan shows extensive groundglass infiltrates and no PE. Patient does not have significant mediastinal lymphadenopathy. However, given protracted presentation, Remdesivir would not be indicated. Continuation of Decadron would be appropriate. Patient appears to be improving. This is likely secondary to better recruitment with positive pressure. Will attempt to transition to Airvo. Patient likely should continue AVAPS with sleep. 2. Metabolic encephalopathy Appears resolved clinical suspicion for anoxia leading to metabolic encephalopathy on presentation. Patient is much improved at this time. CT of the head was not suggestive of any acute infarct. Patient does not have any significant metabolic derangements to suggest an alternative etiology. Patient does not have any medications that would lead to this finding. 3. Elevated troponin/elevated lactate Clinical suspicion for global ischemia secondary to saturations of 35% on room air. Telemetry will be continued. Continue to monitor and trend troponins. Anticipate improvement following control of problem #1. 4. Possible CKD stage III versus acute kidney injury Patient does not have routine medical care. Creatinine is slightly elevated for body size at 1.35 on presentation. Unclear if this represents acute kidney injury secondary to hypoxia versus chronic kidney disease. Patient has had improvement during hospitalization indicating this may be attributed to acute kidney injury secondary to hypoxia. 5. Poor primary care/protracted presentation/advanced age Complicates care, management, recovery and prognosis. Patient would benefit from establishing a routine relationship with a PCP on discharge. Inpatient E&M: [id number] [facility] Hosp L3
[2020-12-01] MEDS: dexAMETHasone 10 MG/ML Vial 6 MG IV (08:34)
[2020-12-01] MEDS: 0.9% Saline Lock 10 ML Syringe IV (08:34)
--- NOTE | 2020-12-01 10:09 | CASEMGMT ---
This RN CM participated in ICU multidisciplinary rounds outside pt room d/t COVID precautions. Pt is currently on airvo vs AVAPS. Per notes, pt has not seen physician in 'years.' Pt with no known hx of chronic lung disease. CM to complete assessment and follow for PT/OT, home oxygen. [place] RN CM
--- NOTE | 2020-12-01 10:34 | CASEMGMT ---
LUIS FERNANDO FIGUEROA assessment: Phone interview with patient for initial transition planning/care coordination assessment d/t COVID precautions. RN HENRY introduced self and role at [facility], pt voices understanding and consents to assessment. Pt is A/Ox4 and answers questions appropriately. Pt is currently on airvo. Pt states her family is aware to quarantine at home and states no concerns getting supplies once home. Care providers, pharmacy, and demographics verified. Presentation: Pt found unresponsive by son with erratic breathing Admitting dx: Hypoxic resp failure, COVID 19 PCP: [facility] Specialists: Pt states no current specialists. Preferred Pharmacy: [facility] Insurance: [facility] Prescription Benefit: [facility] Living Will/HPOA: Pt states does not have LW/HPOA and declines AD info. Pt states I had it filled out at one time but never turned it in. LNOK: Chato Paula, son; Lourdes Bergman, daughter Living Arrangements: Pt states lives with son and 3 grandkids in home with a flight of stairs to main living area and states no concerns at home. Pt states is independent with ADL's. Transportation: Pt states drives self and states no transportation concerns. DME/HHC: Pt states has a walker and BSC but does not use either. Pt states no preference for DME company after verbal list provided, if home oxygen needed at discharge. Green sheet left on chart for home oxygen, if needed. Pt states no hx of HHC or SNF. Pt states no concerns with going home at time of discharge. Pt states is retired. Pt states does not smoke cigarettes and rarely drink ETOH. Pt states no further concerns/needs. CM to follow for home oxygen and any further discharge planning/needs. Advised pt to ask for CM if any further questions/concerns/needs arise, voices understanding. Pt Goal: Home Plan: Home, pending home oxygen testing. [place] LUIS FERNANDO FIGUEROA
[2020-12-01] MEDS: Ibuprofen 400 MG Tablet PO ×2 (12:46→19:54)
--- NOTE | 2020-12-01 13:32 | PN.HOSP_ITS ---
Subjective Subjective: breathing well. Tolerating Airvo Objective Data Objective Data Vital Signs: Vital Signs Temp Pulse Resp BP Pulse Ox 37.1 C 81 18 136/79 H 94 12/01/20 13:00 12/01/20 13:00 12/01/20 13:00 12/01/20 13:00 12/01/20 13:00 Oxygen Flow Rate (L/min) 60 Oxygen Delivery Method Airvo Weight: 60.214 kg Body Mass Index (BMI) 25.4 Intake & Output: Intake and Output for Last 24 Hours 11/29/20 11/30/20 12/01/20 23:59 23:59 23:59 Intake Total 1000 / 1000 340 / 340 Output Total 750 / 950 425 / 425 Balance 250 / 50 -85 / -85 Lab / Micro Data Result Diagrams: 12/01/20 04:45 12/01/20 04:45 Labs: Laboratory Results - last 24 hr 11/30/20 11/30/20 11/30/20 10:00 13:05 14:50 WBC RBC Hgb Hct MCV MCH MCHC RDW Std Deviation RDW Coeff of Leah Plt Count MPV Sodium Potassium Chloride Carbon Dioxide Anion Gap BUN Creatinine Estim Creat Clear Calc Est GFR (MDRD) Af Amer Est GFR (MDRD) Non-Af BUN/Creatinine Ratio Glucose Lactic Acid 2.6 H* Calcium Total Bilirubin AST ALT Alkaline Phosphatase Troponin I 1.670 H* Total Protein Albumin Globulin Albumin/Globulin Ratio Procalcitonin 0.27 H 11/30/20 12/01/20 12/01/20 16:15 04:45 04:45 WBC 12.8 H RBC 4.53 Hgb 13.8 Hct 42.2 MCV 93.2 MCH 30.5 MCHC 32.7 RDW Std Deviation 45.6 H RDW Coeff of Leah 13.3 Plt Count 222 MPV 9.5 Sodium 142 Potassium 3.6 Chloride 105 Carbon Dioxide 29.0 Anion Gap 8 BUN 38 H Creatinine 1.04 H Estim Creat Clear Calc 34.09 Est GFR (MDRD) Af Amer 67 Est GFR (MDRD) Non-Af 55 L BUN/Creatinine Ratio 36.5 H Glucose 155 H Lactic Acid Calcium 9.0 Total Bilirubin 0.50 AST 70 H ALT 37 Alkaline Phosphatase 99 Troponin I 1.630 H* Total Protein 7.0 Albumin 2.5 L Globulin 4.5 H Albumin/Globulin Ratio 0.6 L Procalcitonin Micro: Microbiology 11/30/20 10:15 Nasal Secretion SARS-CoV-2 Antigen (Rapid) - Final SARS-CoV-2 (COVID 19) Radiography Diagnostic Testing: Radiology Impression Chest CTA 11/30/20 11:40 IMPRESSION: Diffuse bilateral airspace disease involving both upper and lower lobes. This is more prominent in the left hemithorax. Electronically Signed: Luis Carlos Cole MD at 14:48 EDT , Service support , Echocardiogram 11/30/20 12:46 Interpretation Summary The estimated ejection fraction is EF 55-60% %. Mild Disatolic Dysfunction Mild AI Ordering Physician: Sonny Phillisp Referring Physician: NO PCP Performed By: Isabella Alvarez, DAVID, RVT Rhythm Strip Rhythm Strip: Sinus Tach Rate: 112 Ectopy: None Physical Exam Narrative on Airvo Const alert and oriented x3 Resp normal respiratory effort and no retractions Cardio regular rate, regular rhythm, S1 normal heart sound and S2 normal heart sound GI normal to inspection, nondistended, normoactive bowel sounds, soft to palpation and non-tender Extremity normal to inspection Skin no rashes or lesions noted Assessment & Plan Assessment/Plan (1) Acute respiratory failure with hypoxia: Status: Acute Code(s): J96.01 - Acute respiratory failure with hypoxia Plan: stable wean oxygen as tolerated CTA chest negative for PE (2) COVID-19: Status: Acute Code(s): U07.1 - COVID-19 Plan: date of onset around 11/27 dexamethasone and remdesivir rapid test +. Son expressed concern that this is a false positive and demanded another test. I told him it was unlikely a false positive, and would treat her for COVID-19. Consult ID for further recommendations. I advised the patient to get vaccinated after she has completed quaranitine I advised her son, whom she lives with, to get tested and quarantine Discussed with the patient about her issue with the zoster vaccine. She said that she got her shingles as well as influenza vaccine 2 weeks later developed pancreatitis. She deduced that it was due to the shingles vaccine and saw physician who she states did not not to refute that. I told her that is unlikely she developed pancreatitis due to the shingles vaccine and did strongly advised that she get the COVID-19 vaccination after discharge. (3) Metabolic encephalopathy: Status: Resolved Code(s): G93.41 - Metabolic encephalopathy Plan: resolved likely due to profound hypoxia head CT negative (4) Elevated troponin: Status: Acute Code(s): R77.8 - Other specified abnormalities of plasma proteins Plan: Suspect demand ischemia start therapeutic anticoagulation cycle troponins echo showed EF 55-60% (5) Lactic acidosis: Status: Resolved Code(s): E87.2 - Acidosis Plan: 2/2 hypoxia monitor (6) Venous thromboembolism (VTE) prophylaxis provided on arrival: Status: Acute Plan: anticoagulation at present (7) Advance care planning: Status: Acute Code(s): Z71.89 - Other specified counseling Plan: DW patient, she wishes to be full code status at this time. Visit Charges Inpatient E&M: [id number] [facility] Hosp L3
--- NOTE | 2020-12-01 13:38 | CON.PCM.ID_ITS ---
Assessment & Plan Assessment/Plan (1) COVID-19: Status: Acute Code(s): U07.1 - COVID-19 Plan: severe sepsis due to covid with hypoxia - has not been vaccinated, plans on getting shot once she is out of quarantine. Sx started 11/21/20 as best as she can tell. Having rapid Ag (+) for covid would fit with a recent onset. Currently day 11 of symptoms based on that date. On dex. Not started on remdesivir based on timing. Recommend 20 days of quarantine. On therapeutic lovenox. Elevated trop, lactate, wbc, fever, and d-dimer on presentation. Will follow, thank you (2) Acute respiratory failure with hypoxia: Status: Acute Code(s): J96.01 - Acute respiratory failure with hypoxia HPI Consult Data Date of Consult: 12/01/20 HPI Narrative HPI Narrative: ZACHARY TALBERT, is a 75 F who presented yesterday with progressive fever, chills, cough, fatigue, dyspnea, headache. No known sick contacts. Has not gotten covid vaccine. Lives with son and his children. Knows that she felt fine the weekend of -, thinks she started to have symptoms on 11/21 as best as she can tell. Was much worse past 3 days, confused and dyspneic. Taken to ED, covid rapid (+), admitted on dex to icu. Feeling a little better today. Full ROS performed and neg except as noted above. [facility] Medical History Anxiety Depression Kidney stones Migraines Pancreatitis Rheumatoid arthritis Vaginal prolapse Home Medications [id number] [Excedrin Extra Strength] 2 tab PO Q6H PRN 11/30/20 [History Last Taken Unknown] multivitamin 1 cap PO DAILY 11/30/20 [History Last Taken Unknown] Allergy/AdvReac Type Severity Reaction Status Date / Time No Known Allergies Allergy Verified 11/30/20 11:39 Surgical History (Updated 11/30/20 @ 14:54 by Jeniffer Jarvis) History of appendectomy History of cholecystectomy Social History (Updated 11/30/20 @ 12:[address] Sonny Phillips, DO) household members: family Smoking Status: Never smoker substance use type: does not use Physical Exam Const alert, oriented x3 and no apparent distress General Appearance: cooperative HEENT normocephalic and head/scalp atraumatic Eyes PERRL and EOMs intact bilaterally Neck supple and No nodes Resp clear to auscultation bilaterally Auscultation: diminished lung sounds Cardio regular rate and regular rhythm GI normal to inspection, nondistended, normoactive bowel sounds Extremity no clubbing, cyanosis or edema Skin no rashes or lesions noted Neuro CN's II-XII intact bilaterally Lab / Micro Data Result Diagrams: 12/01/20 04:45 12/01/20 04:45 Labs: Laboratory Results - last 24 hr 11/30/20 11/30/20 11/30/20 10:00 13:05 14:50 WBC RBC Hgb Hct MCV MCH MCHC RDW Std Deviation RDW Coeff of Leah Plt Count MPV Sodium Potassium Chloride Carbon Dioxide Anion Gap BUN Creatinine Estim Creat Clear Calc Est GFR (MDRD) Af Amer Est GFR (MDRD) Non-Af BUN/Creatinine Ratio Glucose Lactic Acid 2.6 H* Calcium Total Bilirubin AST ALT Alkaline Phosphatase Troponin I 1.670 H* Total Protein Albumin Globulin Albumin/Globulin Ratio Procalcitonin 0.27 H 11/30/20 12/01/20 12/01/20 16:15 04:45 04:45 WBC 12.8 H RBC 4.53 Hgb 13.8 Hct 42.2 MCV 93.2 MCH 30.5 MCHC 32.7 RDW Std Deviation 45.6 H RDW Coeff of Leah 13.3 Plt Count 222 MPV 9.5 Sodium 142 Potassium 3.6 Chloride 105 Carbon Dioxide 29.0 Anion Gap 8 BUN 38 H Creatinine 1.04 H Estim Creat Clear Calc 34.09 Est GFR (MDRD) Af Amer 67 Est GFR (MDRD) Non-Af 55 L BUN/Creatinine Ratio 36.5 H Glucose 155 H Lactic Acid Calcium 9.0 Total Bilirubin 0.50 AST 70 H ALT 37 Alkaline Phosphatase 99 Troponin I 1.630 H* Total Protein 7.0 Albumin 2.5 L Globulin 4.5 H Albumin/Globulin Ratio 0.6 L Procalcitonin Micro: Microbiology 11/30/20 10:15 SARS-CoV-2 Antigen (Rapid) - Final Nasal Secretion SARS-CoV-2 (COVID 19) Rhythm Strip Rhythm Strip: Sinus Tach Rate: 112 Ectopy: None Radiology Impression Chest CTA 11/30/20 11:40 IMPRESSION: Diffuse bilateral airspace disease involving both upper and lower lobes. This is more prominent in the left hemithorax. Electronically Signed: Luis Carlos Cole MD at 14:48 EDT , Service support , Echocardiogram 11/30/20 12:46 Interpretation Summary The estimated ejection fraction is EF 55-60% %. Mild Disatolic Dysfunction Mild AI Ordering Physician: Sonny Phillips Referring Physician: NO PCP Performed By: Isabella Alvarez, RDCS, RVT
[2020-12-01] MEDS: Acetaminophen 325 MG Tablet 650 MG PO (19:55)
[2020-12-02] VITALS (33 sets, daily range): BP systolic 104–149; BP diastolic 63–91; PULSE 57–89; RESP 16–26; TEMP 36.6–37.2; O2SAT 88–100
[2020-12-02] MEDS: Ibuprofen 400 MG Tablet PO ×4 (00:08→17:56)
[2020-12-02] MEDS: Enoxaparin 60 MG/0.6 ML Syringe SC (04:36)
[2020-12-02 05:13] LABS: Hematocrit 42.3 % (37-47); Hemoglobin 13.8 g/dL (12.0-15.0); Mean Corp Hgb Conc 32.6 g/dL (32-36); Mean Corpuscular Hgb 30.1 pg (27.0-32.0); Mean Corpuscular Volume 92.4 fL (81-99); Mean Platelet Vol. 9.9 fl (6.2-12.0); Platelet Count 251 K/mm3 (150-450); RBC Distribution Width CV 13.2 % (11.6-14.6); RBC Distribution Width SD 45.1 fl (35.1-43.9); Red Blood Count 4.58 M/mm3 (4.2-5.4); White Blood Count 14.6 K/mm3 (4.4-11.0)
[2020-12-02 05:31] LABS: ALB/GLOB Ratio 0.6 RATIO (0.9-2.4); AST(SGOT) 60 U/L (15-37); Alanine Aminotransfer ALT/SGPT 43 U/L (13-56); Albumin, Serum 2.4 g/dL (3.2-5.0); Alkaline Phosphatase 92 U/L (45-117); Anion Gap 6 (5-15); BUN 39 mg/dL (7-18); BUN/Creat Ratio 47.2 RATIO (10-20); Calcium,Total 8.9 mg/dL (8.5-10.1); Chloride 102 mmol/L (98-107); Creatinine, Serum 0.83 mg/dL (0.55-1.02); EST Glomerular Filtration Rate 72 mL/min (>60); Est Glom Filt Rate - Afr Amer 87 mL/min (>60); Estimated Creatinine Clearance 42.71 ml/min; Globulin 4.3 g/dL (2.2-4.2); Glucose 146 mg/dL (74-106); Potassium 3.7 mmol/L (3.5-5.1); Protein, Total 6.7 g/dL (6.4-8.2); Sodium Level 139 mmol/L (136-145)
--- NOTE | 2020-12-02 06:59 | PN.CC_ITS ---
Subjective Subjective: Patient did well overnight. No acute issues were reported. Patient did have some insomnia, but describes herself as a light sleeper and did remain on Airvo overnight. Patient states she does wear glasses at baseline, but is left these at home to be safe. Patient was evaluated by speech yesterday and was passed with suggestions to minimize aspiration. Objective Data Objective Data Vital Signs: Vital Signs Temp Pulse Resp BP Pulse Ox 36.6 C 70 22 H 149/82 H 99 12/02/20 06:00 12/02/20 06:00 12/02/20 06:00 12/02/20 06:00 12/02/20 06:00 Oxygen Flow Rate (L/min) 60 Oxygen Delivery Method Airvo Weight: 59.4 kg Body Mass Index (BMI) 25.4 Intake & Output: Intake and Output for Last 24 Hours 11/30/20 12/01/20 12/02/20 23:59 23:59 23:59 Intake Total 1000 / 1000 1140 / 1280 410 / 410 Output Total 750 / 950 900 / 1100 400 / 400 Balance 250 / 50 240 / 180 Lab / Micro Data Result Diagrams: 12/02/20 04:34 12/02/20 04:34 Labs: Laboratory Results - last 24 hr 12/02/20 12/02/20 04:34 04:34 WBC 14.6 H RBC 4.58 Hgb 13.8 Hct 42.3 MCV 92.4 MCH 30.1 MCHC 32.6 RDW Std Deviation 45.1 H RDW Coeff of Leah 13.2 Plt Count 251 MPV 9.9 Sodium 139 Potassium 3.7 Chloride 102 Carbon Dioxide 31.0 Anion Gap 6 BUN 39 H Creatinine 0.83 Estim Creat Clear Calc 42.71 Est GFR (MDRD) Af Amer 87 Est GFR (MDRD) Non-Af 72 BUN/Creatinine Ratio 47.2 H Glucose 146 H Calcium 8.9 Total Bilirubin 0.30 AST 60 H ALT 43 Alkaline Phosphatase 92 Total Protein 6.7 Albumin 2.4 L Globulin 4.3 H Albumin/Globulin Ratio 0.6 L Micro: Microbiology 11/30/20 10:13 Blood Culture (Wb) - Anticubital Right Blood Culture - Preliminary No growth in 48 hours. 11/30/20 10:00 Blood Culture (Wb) - Anticubital Left Blood Culture - Preliminary No growth in 48 hours. 11/30/20 10:15 Nasal Secretion SARS-CoV-2 Antigen (Rapid) - Final SARS-CoV-2 (COVID 19) Radiography Diagnostic Testing: Radiology Impression Echocardiogram 11/30/20 12:46 Interpretation Summary The estimated ejection fraction is EF 55-60% %. Mild Disatolic Dysfunction Mild AI Ordering Physician: Sonny Phillips Referring Physician: ROMIE PCP Performed By: Isabella Alvarez RDCS, RVT Rhythm Strip Rhythm Strip: Sinus Tach Rate: 112 Ectopy: None Physical Exam Const alert and oriented x3 Constitutional Narrative: Interactive with no apparent distress on Airvo therapy General Appearance: cooperative and well developed HEENT normocephalic and head/scalp atraumatic Eyes PERRL, EOMs intact bilaterally, conjunctivae normal and no scleral icterus Neck full ROM Lymph Lymphatic: no lymphadenopathy noted Resp Auscultation: diminished lung sounds; Negative for rales, rhonchi or wheezes Cardio regular rate, regular rhythm, S1 normal heart sound, S2 normal heart sound, no murmurs, no rub and no gallops Peripheral Pulses: pulses 2+ throughout GI normal to inspection, nondistended, normoactive bowel sounds no CVA tenderness Extremity no clubbing, cyanosis or edema Skin no rashes or lesions noted Neuro oriented x3 and CN's II-XII intact bilaterally Psych cooperative and affect normal Assessment & Plan Assessment/Plan (1) COVID-19: Status: Acute Code(s): U07.1 - COVID-19 (2) Acute respiratory failure with hypoxia: Status: Acute Code(s): J96.01 - Acute respiratory failure with hypoxia (3) Metabolic encephalopathy: Status: Resolved Code(s): G93.41 - Metabolic encephalopathy (4) Elevated troponin: Status: Acute Code(s): R77.8 - Other specified abnormalities of plasma proteins (5) Lactic acidosis: Status: Resolved Code(s): E87.2 - Acidosis Plan: RECOMMENDATIONS: 1. Continue Airvo for oxygenation. May not need AVAPS at this time. 2. Wean oxygen as tolerated 3. Continue Decadron to complete a 10-day course. No remdesivir 4. Monitor with telemetry 5. Clarified full CODE STATUS 6. Empiric Lovenox therapy 7. Possible gynecology consult for vaginal prolapse IMPRESSIONS: 1. Acute hypoxic respiratory failure secondary to COVID-19 pneumonia Patient appears to have had a protracted course of over 2 to 3 weeks culminating in hypoxic respiratory failure. CT scan shows extensive groundglass infiltrates and no PE. Patient does not have significant mediastinal lymph adenopathy. However, given protracted presentation, Remdesivir would not be indicated. Continuation of Decadron would be appropriate. Patient appears to be improving. Oxygenation has improved to the point that she is tolerating Airvo. There is no history of obstructive lung disease to suggest the bronchodilators would be helpful. No sleep apnea has been reported, so if not needing AVAPS by tomorrow, this can likely be discontinued. 2. Metabolic encephalopathy Resolved. Appears resolved clinical suspicion for anoxia leading to metabolic encephalopathy on presentation. Patient is much improved at this time. CT of the head was not suggestive of any acute infarct. Patient does not have any significant metabolic derangements to suggest an alternative etiology. Patient does not have any medications that would lead to this finding. 3. Elevated troponin/elevated lactate Clinical suspicion for global ischemia secondary to saturations of 35% on room air. Telemetry will be continued. Troponin trend was unremarkable. Ant icipate improvement following control of problem #1. 4. Acute kidney injury Patient does not have routine medical care. Creatinine is slightly elevated for body size at 1.35 on presentation. Initially unclear if this represents acute kidney injury secondary to hypoxia versus chronic kidney disease. Patient has had improvement during hospitalization indicating this may be attributed to acute kidney injury secondary to hypoxia and decreased p.o. intake secondary to fever. 5. Poor primary care/protracted presentation/advanced age/vaginal prolapse Complicates care, management, recovery and prognosis. Patient would benefit from establishing a routine relationship with a PCP on discharge. Patient reportedly has been seen by gynecology in the past and has elected for conservative therapy. Visit Charges Inpatient E&M: 45098 Subs Hosp L3
[2020-12-02] MEDS: dexAMETHasone 4 MG Tablet 6 MG PO (08:30)
[2020-12-02] MEDS: MENTHOL 226.8 GM JAR 1 APPLIC TOPICAL ×2 (11:44→17:57)
--- NOTE | 2020-12-02 13:53 | PCM.PN.HOSP ---
Subjective Subjective: Breathing well on Airvo. No new complaints. Objective Data Objective Data Vital Signs: Vital Signs Temp Pulse Resp BP Pulse Ox 36.9 C 82 22 H 139/86 H 91 12/02/20 13:00 12/02/20 13:00 12/02/20 13:00 12/02/20 13:00 12/02/20 13:00 Oxygen Flow Rate (L/min) 60 Oxygen Delivery Method Airvo Weight: 130 lb 15.273 oz Body Mass Index (BMI) 25.4 Intake & Output: Intake and Output for Last 24 Hours 11/30/20 12/01/20 12/02/20 23:59 23:59 23:59 Intake Total 1000 / 1000 1140 / 1280 1010 / 1010 Output Total 750 / 950 900 / 1100 700 / 700 Balance 250 / 50 240 / 180 310 / 310 Lab / Micro Data Result Diagrams: 12/02/20 04:34 12/02/20 04:34 Labs: Laboratory Results - last 24 hr 12/02/20 12/02/20 04:34 04:34 WBC 14.6 H RBC 4.58 Hgb 13.8 Hct 42.3 MCV 92.4 MCH 30.1 MCHC 32.6 RDW Std Deviation 45.1 H RDW Coeff of Leah 13.2 Plt Count 251 MPV 9.9 Sodium 139 Potassium 3.7 Chloride 102 Carbon Dioxide 31.0 Anion Gap 6 BUN 39 H Creatinine 0.83 Estim Creat Clear Calc 42.71 Est GFR (MDRD) Af Amer 87 Est GFR (MDRD) Non-Af 72 BUN/Creatinine Ratio 47.2 H Glucose 146 H Calcium 8.9 Total Bilirubin 0.30 AST 60 H ALT 43 Alkaline Phosphatase 92 Total Protein 6.7 Albumin 2.4 L Globulin 4.3 H Albumin/Globulin Ratio 0.6 L Micro: Microbiology 11/30/20 10:25 Urine, Clean Catch Urine Culture - Final Culture exhibits no growth. 11/30/20 10:13 Blood Culture (Wb) - Anticubital Right Blood Culture - Preliminary No growth in 48 hours. 11/30/20 10:00 Blood Culture (Wb) - Anticubital Left Blood Culture - Preliminary No growth in 48 hours. 11/30/20 10:15 Nasal Secretion SARS-CoV-2 Antigen (Rapid) - Final SARS-CoV-2 (COVID 19) Rhythm Strip Rhythm Strip: Sinus Tach Rate: 112 Ectopy: None Physical Exam Narrative up in chair on Airvo. No respiratory distress. No conversational dyspnea. Const alert and oriented x3 Exam Limitations: no limitations HEENT head/scalp atraumatic Head and Scalp: normocephalic Neck no lymphadenopathy Resp normal respiratory effort Resp Narrative: coarse breath sounds bilaterally. GI normal to inspection, nondistended, normoactive bowel sounds, soft to palpation, non-tender and non-distended Assessment & Plan Assessment/Plan (1) Acute respiratory failure with hypoxia: Status: Acute Code(s): J96.01 - Acute respiratory failure with hypoxia Plan: stable on Airvo wean oxygen as tolerated CTA chest negative for PE (2) COVID-19: Status: Acute Code(s): U07.1 - COVID-19 Plan: date of onset around 11/27 dexamethasone and remdesivir rapid test +. I advised the patient to get vaccinated after she has completed quarantine 12/01: Discussed with the patient about her issue with the zoster vaccine. She said that she got her shingles as well as influenza vaccine 2 weeks later developed pancreatitis. She deduced that it was due to the shingles vaccine and saw physician who she states did not not to refute that. I told her that is unlikely she developed pancreatitis due to the shingles vaccine and did strongly advised that she get the COVID-19 vaccination after discharge. (3) Metabolic encephalopathy: Status: Resolved Code(s): G93.41 - Metabolic encephalopathy Plan: resolved likely due to profound hypoxia head CT negative (4) Elevated troponin: Status: Acute Code(s): R77.8 - Other specified abnormalities of plasma proteins Plan: Suspect demand ischemia from profound hypoxia change enoxaparin from therapeutic anticoagulation to VTE prophylactic dosing. echo showed EF 55-60% (5) Lactic acidosis: Status: Resolved Code(s): E87.2 - Acidosis Plan: 2/2 hypoxia monitor (6) Venous thromboembolism (VTE) prophylaxis provided on arrival: Status: Acute Plan: anticoagulation at present (7) Advance care planning: Status: Acute Code(s): Z71.89 - Other specified counseling Plan: DW patient, she wishes to be full code status at this time. Visit Charges Inpatient E&M: [id number] Subs Hosp L2
[2020-12-02] MEDS: Enoxaparin 40 MG/0.4 ML Syringe SC (17:56)
[2020-12-02] MEDS: MELATONIN 10 MG TABLET PO (21:32)
[2020-12-03] VITALS (39 sets, daily range): BP systolic 116–165; BP diastolic 57–89; PULSE 65–89; RESP 16–27; TEMP 36.6–37.4; O2SAT 85–96
[2020-12-03] MEDS: Enoxaparin 40 MG/0.4 ML Syringe SC ×2 (05:24→18:37)
[2020-12-03 05:43] LABS: Hematocrit 37.7 % (37-47); Hemoglobin 12.8 g/dL (12.0-15.0); Mean Corpuscular Hgb 30.7 pg (27.0-32.0); Mean Corpuscular Volume 90.4 fL (81-99); Mean Platelet Vol. 9.5 fl (6.2-12.0); Platelet Count 273 K/mm3 (150-450); RBC Distribution Width CV 12.9 % (11.6-14.6); RBC Distribution Width SD 42.9 fl (35.1-43.9); Red Blood Count 4.17 M/mm3 (4.2-5.4); White Blood Count 15.4 K/mm3 (4.4-11.0)
[2020-12-03 06:07] LABS: ALB/GLOB Ratio 0.6 RATIO (0.9-2.4); AST(SGOT) 37 U/L (15-37); Alanine Aminotransfer ALT/SGPT 37 U/L (13-56); Albumin, Serum 2.3 g/dL (3.2-5.0); Alkaline Phosphatase 81 U/L (45-117); Anion Gap 6 (5-15); BUN 34 mg/dL (7-18); BUN/Creat Ratio 55.7 RATIO (10-20); Calcium,Total 8.5 mg/dL (8.5-10.1); Chloride 104 mmol/L (98-107); Creatinine, Serum 0.61 mg/dL (0.55-1.02); EST Glomerular Filtration Rate 102 mL/min (>60); Est Glom Filt Rate - Afr Amer 123 mL/min (>60); Estimated Creatinine Clearance 35.45 ml/min; Globulin 3.7 g/dL (2.2-4.2); Glucose 127 mg/dL (74-106); Sodium Level 139 mmol/L (136-145)
--- NOTE | 2020-12-03 06:50 | PN.CC_ITS ---
Subjective Subjective: Patient did well overnight. No acute issues were reported. Patient did have some transient increase in FiO2 requirements. Patient does report coughing with the use of the incentive spirometer. Objective Data Objective Data Vital Signs: Vital Signs Temp Pulse Resp BP Pulse Ox 36.9 C 71 18 139/83 H 94 12/03/20 04:00 12/03/20 06:00 12/03/20 06:00 12/03/20 06:00 12/03/20 06:00 Oxygen Flow Rate (L/min) 50 Oxygen Delivery Method Airvo Weight: 58.6 kg Body Mass Index (BMI) 25.4 Intake & Output: Intake and Output for Last 24 Hours 12/01/20 12/02/20 12/03/20 23:59 23:59 23:59 Intake Total 1140 / 1280 1310 / 1310 Output Total 900 / 1100 1100 / 1175 450 / 450 Balance 240 / 180 210 / 135 -450 / -450 Lab / Micro Data Result Diagrams: 12/03/20 05:30 12/03/20 05:30 Labs: Laboratory Results - last 24 hr 12/03/20 12/03/20 05:30 05:30 WBC 15.4 H RBC 4.17 L Hgb 12.8 Hct 37.7 MCV 90.4 MCH 30.7 MCHC 34.0 RDW Std Deviation 42.9 RDW Coeff of Leah 12.9 Plt Count 273 MPV 9.5 Sodium 139 Potassium 4.0 Chloride 104 Carbon Dioxide 29.0 Anion Gap 6 BUN 34 H Creatinine 0.61 Estim Creat Clear Calc 35.45 Est GFR (MDRD) Af Amer 123 Est GFR (MDRD) Non-Af 102 BUN/Creatinine Ratio 55.7 H Glucose 127 H Calcium 8.5 Total Bilirubin 0.50 AST 37 ALT 37 Alkaline Phosphatase 81 Total Protein 6.0 L Albumin 2.3 L Globulin 3.7 Albumin/Globulin Ratio 0.6 L Micro: Microbiology 11/30/20 10:25 Urine, Clean Catch Urine Culture - Final Culture exhibits no growth. 11/30/20 10:13 Blood Culture (Wb) - Anticubital Right Blood Culture - Preliminary No growth in 48 hours. 11/30/20 10:00 Blood Culture (Wb) - Anticubital Left Blood Culture - Preliminary No growth in 48 hours. 11/30/20 10:15 Nasal Secretion SARS-CoV-2 Antigen (Rapid) - Final SARS-CoV-2 (COVID 19) Rhythm Strip Rhythm Strip: Sinus Tach Rate: 112 Ectopy: None Physical Exam Const alert and oriented x3 Constitutional Narrative: Interactive with no apparent distress on Airvo therapy General Appearance: cooperative and well developed HEENT normocephalic and head/scalp atraumatic Eyes PERRL, EOMs intact bilaterally, conjunctivae normal and no scleral icterus Neck full ROM Lymph Lymphatic: no lymphadenopathy noted Resp Auscultation: diminished lung sounds; Negative for rales, rhonchi or wheezes Cardio regular rate, regular rhythm, S1 normal heart sound, S2 normal heart sound, no murmurs, no rub and no gallops Peripheral Pulses: pulses 2+ throughout GI normal to inspection, nondistended, normoactive bowel sounds no CVA tenderness Extremity no clubbing, cyanosis or edema Skin no rashes or lesions noted Neuro oriented x3 and CN's II-XII intact bilaterally Psych cooperative and affect normal Assessment & Plan Assessment/Plan (1) COVID-19: Status: Acute Code(s): U07.1 - COVID-19 (2) Acute respiratory failure with hypoxia: Status: Acute Code(s): J96.01 - Acute respiratory failure with hypoxia (3) Metabolic encephalopathy: Status: Resolved Code(s): G93.41 - Metabolic encephalopathy (4) Elevated troponin: Status: Acute Code(s): R77.8 - Other specified abnormalities of plasma proteins (5) Lactic acidosis: Status: Resolved Code(s): E87.2 - Acidosis Plan: RECOMMENDATIONS: 1. Continue Airvo for oxygenation. Discontinue AVAPS 2. Wean oxygen as tolerated 3. Continue Decadron to complete a 10-day course. No remdesivir 4. Monitor with telemetry 5. Clarified full CODE STATUS 6. Empiric Lovenox therapy IMPRESSIONS: 1. Acute hypoxic respiratory failure secondary to COVID-19 pneumonia Patient appears to have had a protracted course of over 2 to 3 weeks culmi nating in hypoxic respiratory failure. CT scan shows extensive groundglass infiltrates and no PE. Patient does not have significant mediastinal lymphadenopathy. However, given protracted presentation, Remdesivir would not be indicated. Continuation of Decadron would be appropriate. Patient appears to be improving. Oxygenation has improved to the point that she is tolerating Airvo. There is no history of obstructive lung disease to suggest the bronchodilators would be helpful. Will discontinue AVAPS. 2. Metabolic encephalopathy Resolved. Appears resolved clinical suspicion for anoxia leading to metabolic encephalopathy on presentation. Patient is much improved at this time. CT of the head was not suggestive of any acute infarct. Patient does not have any significant metabolic derangements to suggest an alternative etiology. Patient does not have any medications that would lead to this finding. 3. Elevated troponin/elevated lactate Resolved. Clinical suspicion for global ischemia secondary to saturations of 35% on room air. Telemetry will be continued. Troponin trend was unremarkable. Anticipate improvement following control of problem #1. 4. Acute kidney injury Patient does not have routine medical care. Creatinine is slightly elevated for body size at 1.35 on presentation. Initially unclear if this represents acute kidney injury secondary to hypoxia versus chronic kidney disease. Patient has had improvement during hospitalization indicating this may be attributed to acute kidney injury secondary to hypoxia and decreased p.o. intake secondary to fever. 5. Poor primary care/protracted presentation/advanced age/vaginal prolapse Complicates care, management, recovery and prognosis. Patient would benefit from establishing a routine relationship with a PCP on discharge. Patient reportedly has been seen by gynecology in the past and has elected for conservative therapy. Visit Charges Inpatient E&M: 13177 Subs Hosp L3
[2020-12-03] MEDS: dexAMETHasone 4 MG Tablet 6 MG PO (08:07)
[2020-12-03] MEDS: Ibuprofen 400 MG Tablet PO (10:16)
[2020-12-03] MEDS: MENTHOL 226.8 GM JAR 1 APPLIC TOPICAL ×2 (10:17→18:42)
--- NOTE | 2020-12-03 11:28 | PCM.PN.HOSP ---
Subjective Subjective: Breathing well, but despite still on Airvo. Objective Data Objective Data Vital Signs: Vital Signs Temp Pulse Resp BP Pulse Ox 37.4 C H 82 26 H 128/86 H 92 12/03/20 11:00 12/03/20 11:00 12/03/20 11:00 12/03/20 11:00 12/03/20 11:00 Oxygen Flow Rate (L/min) 50 Oxygen Delivery Method Airvo Weight: 129 lb 3.054 oz Body Mass Index (BMI) 25.4 Intake & Output: Intake and Output for Last 24 Hours 12/01/20 12/02/20 12/03/20 23:59 23:59 23:59 Intake Total 1140 / 1280 1310 / 1310 Output Total 900 / 1100 1100 / 1175 450 / 450 Balance 240 / 180 210 / 135 -450 / -450 Lab / Micro Data Result Diagrams: 12/03/20 05:30 12/03/20 05:30 Labs: Laboratory Results - last 24 hr 12/03/20 12/03/20 05:30 05:30 WBC 15.4 H RBC 4.17 L Hgb 12.8 Hct 37.7 MCV 90.4 MCH 30.7 MCHC 34.0 RDW Std Deviation 42.9 RDW Coeff of Leah 12.9 Plt Count 273 MPV 9.5 Sodium 139 Potassium 4.0 Chloride 104 Carbon Dioxide 29.0 Anion Gap 6 BUN 34 H Creatinine 0.61 Estim Creat Clear Calc 35.45 Est GFR (MDRD) Af Amer 123 Est GFR (MDRD) Non-Af 102 BUN/Creatinine Ratio 55.7 H Glucose 127 H Calcium 8.5 Total Bilirubin 0.50 AST 37 ALT 37 Alkaline Phosphatase 81 Total Protein 6.0 L Albumin 2.3 L Globulin 3.7 Albumin/Globulin Ratio 0.6 L Micro: Microbiology 11/30/20 10:25 Urine, Clean Catch Urine Culture - Final Culture exhibits no growth. 11/30/20 10:13 Blood Culture (Wb) - Anticubital Right Blood Culture - Preliminary No growth in 48 hours. 11/30/20 10:00 Blood Culture (Wb) - Anticubital Left Blood Culture - Preliminary No growth in 48 hours. 11/30/20 10:15 Nasal Secretion SARS-CoV-2 Antigen (Rapid) - Final SARS-CoV-2 (COVID 19) Rhythm Strip Rhythm Strip: Sinus Tach Rate: 112 Ectopy: None Physical Exam Const alert Constitutional Narrative: up in bed. no respiratory distress. HEENT Head and Scalp: normocephalic Eyes PERRL Resp normal respiratory effort Resp Narrative: coarse breath sounds Cardio regular rate, regular rhythm, S1 normal heart sound and S2 normal heart sound GI normal to inspection, nondistended, normoactive bowel sounds, non-tender and non-distended Extremity normal to inspection Assessment & Plan Assessment/Plan (1) Acute respiratory failure with hypoxia: Status: Acute Code(s): J96.01 - Acute respiratory failure with hypoxia Plan: stable on Airvo wean oxygen as tolerated CTA chest negative for PE (2) COVID-19: Status: Acute Code(s): U07.1 - COVID-19 Plan: date of onset around 11/27 dexamethasone and remdesivir rapid test +. I advised the patient to get vaccinated after she has completed quarantine 12/01: Discussed with the patient about her issue with the zoster vaccine. She said that she got her shingles as well as influenza vaccine 2 weeks later developed pancreatitis. She deduced that it was due to the shingles vaccine and saw physician who she states did not not to refute that. I told her that is unlikely she developed pancreatitis due to the shingles vaccine and did strongly advised that she get the COVID-19 vaccination after discharge. (3) Metabolic encephalopathy: Status: Resolved Code(s): G93.41 - Metabolic encephalopathy Plan: resolved likely due to profound hypoxia head CT negative (4) Elevated troponin: Status: Acute Code(s): R77.8 - Other specified abnormalities of plasma proteins Plan: Suspect demand ischemia from profound hypoxia change enoxaparin from therapeutic anticoagulation to VTE prophylactic dosing. echo showed EF 55-60% (5) Lactic acidosis: Status: Resolved Code(s): E87.2 - Acidosis Plan: 2/2 hypoxia monitor (6) Venous thromboembolism (VTE) prophylaxis provided on arrival: Status: Acute Plan: anticoagulation at present (7) Advance care planning: Status: Acute Code(s): Z71.89 - Other specified counseling Plan: DW patient, she wishes to be full code status at this time. Visit Charges Inpatient E&M: 42241 Subs Hosp L2
[2020-12-03] MEDS: 0.9% Saline Lock 10 ML Syringe IV (20:26)
[2020-12-03] MEDS: MELATONIN 10 MG TABLET PO (20:26)
[2020-12-04] VITALS (41 sets, daily range): BP systolic 106–162; BP diastolic 64–96; PULSE 63–101; RESP 17–29; TEMP 36.4–37.2; O2SAT 88–96
[2020-12-04] MEDS: Enoxaparin 40 MG/0.4 ML Syringe SC (05:28)
--- NOTE | 2020-12-04 05:46 | PN.CC_ITS ---
Assessment & Plan Assessment/Plan (1) Acute respiratory failure with hypoxia: Status: Acute Code(s): J96.01 - Acute respiratory failure with hypoxia (2) COVID-19: Status: Acute Code(s): U07.1 - COVID-19 Plan: RECOMMENDATIONS: 1. Continue Airvo heated high flow and wean FiO2 to maintain oxygen saturations at or above 90%. 2. Continue Decadron to complete treatment course. 3. Okay to transition to Eliquis. 4. Encourage incentive spirometer use and mobilize patient as tolerated. IMPRESSIONS: 1. Acute hypoxic respiratory failure secondary to COVID-19 pneumonia The patient did present to the hospital with a protracted course over several weeks. Therefore, she was not deemed to be a candidate for remdesivir. We will plan to continue current supportive measures including high flow oxygen to maintain saturations at or above 90%. Plan to continue Decadron as well to complete a 10-day treatment course. Given the patient's increased D-dimer level, it is reasonable to transition her from low-dose Lovenox to Eliquis. Continue to encourage incentive spirometer use. 2. Acute kidney injury Resolved. Patient does not have routine medical care. Creatinine is slightly elevated for body size at 1.35 on presentation. Initially unclear if this represents acute kidney injury secondary to hypoxia versus chronic kidney dis ease. Patient has had improvement during hospitalization indicating this may be attributed to acute kidney injury secondary to hypoxia and decreased p.o. intake secondary to fever. 3. Poor primary care/protracted presentation/advanced age/vaginal prolapse Complicates care, management, recovery and prognosis. Patient would benefit from establishing a routine relationship with a PCP on discharge. Patient reportedly has been seen by gynecology in the past and has elected for conservative therapy. This note was generated with [employer] dictation software. It may contain incorrect words, spelling, and punctuation that were not noted in checking the note before signing. Subjective Subjective: The patient was seen and examined at the bedside this morning. Events from the last 24 hours have been reviewed. The patient is currently afebrile, hemodynamically stable and maintaining appropriate oxygen saturations on Airvo with an FiO2 requirement of 50% and flow rate of 40 L/min. The patient remains on Decadron and was transition to twice daily Eliquis this morning. She does report some improvement in her shortness of breath since admission. She has been attempting to utilize her incentive spirometer as instructed. Objective Data Objective Data The patient's most recent lab work, culture data and imaging studies have all been personally reviewed. Rapid coronavirus antigen testing was positive on November 30. The remainder of the patient's infectious work-up has been unremarkable. Surface echocardiogram from November 30 revealed a normal ejection fraction of 55 to 60%. Right ventricular systolic pressure was unable to be estimated. Vital Signs: Vital Signs Temp Pulse Resp BP Pulse Ox 97.8 F 71 21 H 161/86 H 94 12/04/20 04:00 12/04/20 05:00 12/04/20 05:00 12/04/20 05:00 12/04/20 05:00 Oxygen Flow Rate (L/min) 40 Oxygen Delivery Method Airvo Weight: 129 lb 3.054 oz Body Mass Index (BMI) 25.4 Intake & Output: Intake and Output for Last 24 Hours 12/02/20 12/03/20 12/04/20 23:59 23:59 23:59 Intake Total 1310 / 1310 560 / 560 60 / 60 Output Total 1100 / 1175 1500 / 1575 125 / 125 Balance 210 / 135 -940 / -1015 -65 / -65 Lab / Micro Data Result Diagrams: 12/11/20 06:56 12/11/20 06:56 Labs: Laboratory Results - last 24 hr 12/03/20 05:30 Sodium 139 Potassium 4.0 Chloride 104 Carbon Dioxide 29.0 Anion Gap 6 BUN 34 H Creatinine 0.61 Estim Creat Clear Calc 35.45 Est GFR (MDRD) Af Amer 123 Est GFR (MDRD) Non-Af 102 BUN/Creatinine Ratio 55.7 H Glucose 127 H Calcium 8.5 Total Bilirubin 0.50 AST 37 ALT 37 Alkaline Phosphatase 81 Total Protein 6.0 L Albumin 2.3 L Globulin 3.7 Albumin/Globulin Ratio 0.6 L Micro: Microbiology 11/30/20 10:25 Urine, Clean Catch Urine Culture - Final Culture exhibits no growth. 11/30/20 10:13 Blood Culture (Wb) - Anticubital Right Blood Culture - Preliminary No growth in 48 hours. 11/30/20 10:00 Blood Culture (Wb) - Anticubital Left Blood Culture - Preliminary No growth in 48 hours. 11/30/20 10:15 Nasal Secretion SARS-CoV-2 Antigen (Rapid) - Final SARS-CoV-2 (COVID 19) Rhythm Strip Rhythm Strip: Sinus Tach Rate: 112 Ectopy: None Physical Exam Const alert, oriented x3 and no apparent distress Constitutional Narrative: Sitting in bedside recliner. HEENT normocephalic and head/scalp atraumatic Eyes PERRL and EOMs intact bilaterally Chest inspection of chest normal Resp normal respiratory effort Auscultation: diminished lung sounds; Negative for rales, rhonchi or wheezes Cardio regular rate and regular rhythm GI normal to inspection, nondistended, normoactive bowel sounds Extremity no clubbing, cyanosis or edema Skin no rashes or lesions noted Neuro oriented x3 and CN's II-XII intact bilaterally Psych cooperative and affect normal Charges/Coding Visit Charges Inpatient E&M: 82162 Subs Hosp L3
[2020-12-04 07:06] LABS: Hematocrit 44.1 % (37-47); Hemoglobin 14.7 g/dL (12.0-15.0); Mean Corp Hgb Conc 33.3 g/dL (32-36); Mean Corpuscular Hgb 29.9 pg (27.0-32.0); Mean Corpuscular Volume 89.8 fL (81-99); Mean Platelet Vol. 9.4 fl (6.2-12.0); Platelet Count 257 K/mm3 (150-450); RBC Distribution Width CV 12.6 % (11.6-14.6); Red Blood Count 4.91 M/mm3 (4.2-5.4); White Blood Count 19.6 K/mm3 (4.4-11.0)
[2020-12-04 07:45] LABS: ALB/GLOB Ratio 0.7 RATIO (0.9-2.4); AST(SGOT) 66 U/L (15-37); Alanine Aminotransfer ALT/SGPT 55 U/L (13-56); Albumin, Serum 2.6 g/dL (3.2-5.0); Alkaline Phosphatase 99 U/L (45-117); Anion Gap 11 (5-15); BUN 27 mg/dL (7-18); BUN/Creat Ratio 41.8 RATIO (10-20); Calcium,Total 8.7 mg/dL (8.5-10.1); Chloride 103 mmol/L (98-107); Creatinine, Serum 0.65 mg/dL (0.55-1.02); EST Glomerular Filtration Rate 95 mL/min (>60); Est Glom Filt Rate - Afr Amer 115 mL/min (>60); Estimated Creatinine Clearance 35.45 ml/min; Globulin 3.8 g/dL (2.2-4.2); Glucose 93 mg/dL (74-106); Potassium 4.9 mmol/L (3.5-5.1); Protein, Total 6.4 g/dL (6.4-8.2); Sodium Level 139 mmol/L (136-145)
--- NOTE | 2020-12-04 08:01 | PCM.PN.HOSP ---
Subjective Subjective: Patient overnight had been on 70% FiO2 with a airvo however this morning patient has been deescalated to 40% successfully. Patient does report ongoing dyspnea and cough although lessened and in the initial onset of her Covid syndrome had headaches, fever, chills as well as body aches but never had any nausea, emesis, abdominal pain, diarrhea, alteration to sense of taste or smell. Patient denies fevers, chills, nausea, emesis, abdominal pain, chest pain. Objective Data Objective Data Vital Signs: Vital Signs Temp Pulse Resp BP Pulse Ox 97.8 F 70 20 H 160/79 H 92 12/04/20 04:00 12/04/20 07:11 12/04/20 07:00 12/04/20 07:00 12/04/20 07:00 Oxygen Flow Rate (L/min) 40 Oxygen Delivery Method Airvo Weight: 129 lb 6.581 oz Body Mass Index (BMI) 25.4 Intake & Output: Intake and Output for Last 24 Hours 12/02/20 12/03/20 12/04/20 23:59 23:59 23:59 Intake Total 1310 / 1310 560 / 560 60 / 60 Output Total 1100 / 1175 1500 / 1575 375 / 375 Balance 210 / 135 -940 / -1015 -315 / -315 Lab / Micro Data Result Diagrams: 12/04/20 07:00 12/04/20 07:00 Labs: Laboratory Results - last 24 hr 12/04/20 12/04/20 07:00 07:00 WBC 19.6 H RBC 4.91 Hgb 14.7 Hct 44.1 MCV 89.8 MCH 29.9 MCHC 33.3 RDW Std Deviation 42.0 RDW Coeff of Leah 12.6 Plt Count 257 MPV 9.4 Sodium 139 Potassium 4.9 Chloride 103 Carbon Dioxide 25.0 Anion Gap 11 BUN 27 H Creatinine 0.65 Estim Creat Clear Calc 35.45 Est GFR (MDRD) Af Amer 115 Est GFR (MDRD) Non-Af 95 BUN/Creatinine Ratio 41.8 H Glucose 93 Calcium 8.7 Total Bilirubin 0.90 AST 66 H ALT 55 Alkaline Phosphatase 99 Total Protein 6.4 Albumin 2.6 L Globulin 3.8 Albumin/Globulin Ratio 0.7 L Micro: Microbiology 11/30/20 10:25 Urine, Clean Catch Urine Culture - Final Culture exhibits no growth. 11/30/20 10:13 Blood Culture (Wb) - Anticubital Right Blood Culture - Preliminary No growth in 48 hours. 11/30/20 10:00 Blood Culture (Wb) - Anticubital Left Blood Culture - Preliminary No growth in 48 hours. 11/30/20 10:15 Nasal Secretion SARS-CoV-2 Antigen (Rapid) - Final SARS-CoV-2 (COVID 19) Rhythm Strip Rhythm Strip: Sinus Tach Rate: 112 Ectopy: None Physical Exam Narrative Physical Examination: General: awake, alert, oriented x 3 and cooperative, seated upright in the ICU bedside chair, fatigued, notes feeling improved currently, air Vo is being trended down. Skin: normal color, turgor, no icterus, cyanosis. HEENT: AT/NC, EOMI, PERRLA, mildly dry MM, airvo in place. Lungs: Diffusely diminished, greater bases, improving effort, no obvious evidence of distress, airvo in place, no rales, ronchi or wheezing. Heart: Regular rate and rhythm; no gallop, rub audible. Abdomen: soft, NTTP, ND, normal BS. Extremities: no cyanosis, clubbing, or edema. Neurological: patient awake, alert, oriented as noted; cognitive function intact; pupils equally reactive to light and accomodation; cranial nerves II-XII grossly normal, moving all 4 extremities, no focal deficits, strength moderately to severely global decrease secondary to acute presentation. Psychiatric: affect appears fatigued otherwise normal, no acute evidence of depressive or anxiety feelings. Assessment & Plan Assessment/Plan (1) Acute respiratory failure with hypoxia: Status: Acute Code(s): J96.01 - Acute respiratory failure with hypoxia (2) COVID-19: Status: Acute Code(s): U07.1 - COVID-19 (3) Metabolic encephalopathy: Status: Resolved Code(s): G93.41 - Metabolic encephalopathy (4) Elevated troponin: Status: Acute Code(s): R77.8 - Other specified abnormalities of plasma proteins (5) Lactic acidosis: Status: Resolved Code(s): E87.2 - Acidosis Plan: The patient is a 75 y/o F w/ PMHx: who presents to the [facility] ED on 11/30/20 with history of onset fatigue malaise, headaches, fever, chills, cough, dyspnea as well as body aches starting~ 3 days prior to presentation with onset confusion and worsening respiratory status prompting ED evaluation. 1. Acute Hypoxic Respiratory Failure secondary to Acute Bilateral Pneumonia secondary to Suspected Acute Viral Syndrome, COVID-19: Patient to admitted to the ICU, pulmonary/medical care and infectious disease consulted, patient maintained on airvo oxygenation currently with wean as tolerated to NC and then if able RA, PRN albuterol, HOB, IS parameters, elevated d-dimer upon presentation and repeat, 12/04/20 transitioned from prophylactic lovenox to low dose BID apixiban per discussion with CC/ICU, continue supportive care including q 2 hour turning, continue decadron x 10 doses, noted 11/30/[address] Zhou. 2. NSTEMI, likely secondary to #1, Demand Ischemia associated: Admission EKG without acute evidence of ischemia, trop 1.120-->1.670-->1.630, likely as noted secondary to #1, demand related with acute hypoxia secondary to COVID, maintained on telemetry, ECHO w/ EF 55 to 60%, mild diastolic dysfunction, mild AI, currently maintained on baby aspirin, initially was on prophylactic Lovenox transition to low-dose apixaban 12/04/2020 secondary to ongoing elevated D-dimer in the setting of #1. Given #1 cardiology consultation deferred and will plan follow-up with cardiology once #1 resolves on an outpatient basis. Patient BP low normal therefore not initiated on any beta-annabel therapy or JOON inhibitor/ARB. Given #1 statin therapy also deferred. 3. Acute kidney injury: Secondary to #1, poor intake complicated by acute illness. Admission BUN/Cr 38/1.04, prior baseline creatinine noted to be 0.6. Patient was judiciously hydrated given Covid presentation, repeat BMP/creatinine has normalized, 12/04/2020 BUN/creatinine 27/0.65, continue to trend. 4. Acute encephalopathy, metabolic: Patient with significant confusion initially upon presentation, likely associate with #1, #2, #3, CT head with no acute intracranial finding upon presentation, mental status has significantly improved with appropriate oxygenation. 5. Lactic acidosis: Admission lactic acid elevated, has normalized, likely secondary to global ischemia given significant desaturation, maintain on telemetry monitoring, cardiac enzyme trending as noted which was elevated consistent with NSTEMI likely secondary to demand. 6. DVT prophylaxis: SCDs, transitioning to low-dose twice daily apixaban per discussion with pulmonary/critical care given ongoing significantly elevated D-dimer. 7. CODE STATUS: Full code. Visit Charges Inpatient E&M: 36809 Subs Hosp L3
[2020-12-04] MEDS: dexAMETHasone 4 MG Tablet 6 MG PO (08:14)
--- NOTE | 2020-12-04 09:25 | CASEMGMT ---
This RN CM participated in ICU multidisciplinary rounds. Pt is currently on airvo at 40L and 55% and has been on the airvo since admission. CM to follow. SStaten RN CM
[2020-12-04 09:28] LABS: D-Dimer Quantitative (DVT/PE) 5.77 FEU/ug/m (0.27-0.49)
--- NOTE | 2020-12-04 12:12 | PCM.PN.ID ---
Physical Exam Narrative Feeling better, no fever, still fatigued. Breathing slowly improving. Const alert General Appearance: cooperative Resp Auscultation: diminished lung sounds Cardio regular rate and regular rhythm GI normal to inspection, nondistended, normoactive bowel sounds Extremity no clubbing, cyanosis or edema Skin no rashes or lesions noted ID ID: Route of nutrition/ use of supplements: [] Nutritional Intake: [] IV Site: [] Smalls Catheter: [] Assessment & Plan Assessment/Plan (1) COVID-19: Status: Acute Code(s): U07.1 - COVID-19 Plan: severe sepsis due to covid with hypoxia - has not been vaccinated, plans on getting shot once she is out of quarantine. Sx started 11/21/20 as best as she can tell. Having rapid Ag (+) for covid would fit with a recent onset. On dex. Not started on remdesivir based on timing. Recommend 20 days of quarantine. On therapeutic lovenox. Elevated trop, lactate, wbc, fever, and d-dimer on presentation. FiO2 slowly improving. Will follow (2) Acute respiratory failure with hypoxia: Status: Acute Code(s): J96.01 - Acute respiratory failure with hypoxia
--- NOTE | 2020-12-04 15:47 | CHAPLAIN ---
Type of Pastoral Visit ___ Initial Visit ___ Follow-up Visit ___ On-call Visit ___ General Patient Visit ___ Spiritual Assessment ___ Family Conference ___ Bereavement ___ Rapid Response ___ Code Blue _x__ Other (describe below) Pastoral Care Referral From _x__ Patient ___ Family ___ Nurse ___ Physician ___ Cafe Operator ___ Overnight Babysitter ___ Other (describe below) Sacrament/Intervention ___ Active listening ___ Anointing ___ Shinto ___ Bereavement ___ Communion ___ Bhavya exploration ___ ___ Life review _x__ Prayer ___ Reconciliation ___ Sacrament of Sick _x__ Supportive presence ___ Wedding ___ Other (describe below) Pastoral Comments phone call made into isolation room; pt answers the phone but states that she is very tired today; pt is offered support and a prayer is given
[2020-12-04] MEDS: APIXABAN 2.5 MG TABLET PO (16:17)
[2020-12-04] MEDS: Ibuprofen 400 MG Tablet PO (17:35)
[2020-12-04] MEDS: MELATONIN 10 MG TABLET PO (19:58)
[2020-12-05] VITALS (32 sets, daily range): BP systolic 112–164; BP diastolic 71–91; PULSE 71–97; RESP 17–32; TEMP 36.6–36.8; O2SAT 87–98
[2020-12-05 03:46] LABS: Absolute Lymphocyte Count 0.91 X10^3/uL (0.83-4.51); Absolute Neutrophil Count 15.2 X10^3/uL (2.0-7.7); Basophil# 0.08 X10^3/uL; Basophil% 0.5 % (0-1); Eosinophil# 0.15 X10^3/uL; Eosinophils% 0.9 % (0-5); Hematocrit 41.2 % (37-47); Hemoglobin 13.7 g/dL (12.0-15.0); Lymphocyte # 0.91 X10^3/ul (0.83-4.51); Lymphocyte % 5.2 % (19-41); Mean Corp Hgb Conc 33.3 g/dL (32-36); Mean Corpuscular Volume 90.4 fL (81-99); Mean Platelet Vol. 9.4 fl (6.2-12.0); Monocyte# 0.42 X10^3/uL; Monocyte% 2.4 % (0-10); NRBC Flagged by Analyzer 0.1 % (0-5); Neutrophil # 15.15 X10^3/uL (2.7-7.7); Neutrophil % 86.5 % (47-70); Platelet Count 227 K/mm3 (150-450); RBC Distribution Width CV 12.9 % (11.6-14.6); RBC Distribution Width SD 42.3 fl (35.1-43.9); Red Blood Count 4.56 M/mm3 (4.2-5.4); White Blood Count 17.5 K/mm3 (4.4-11.0)
[2020-12-05 04:01] LABS: ALB/GLOB Ratio 0.6 RATIO (0.9-2.4); AST(SGOT) 48 U/L (15-37); Alanine Aminotransfer ALT/SGPT 63 U/L (13-56); Albumin, Serum 2.4 g/dL (3.2-5.0); Alkaline Phosphatase 96 U/L (45-117); Anion Gap 8 (5-15); BUN 29 mg/dL (7-18); BUN/Creat Ratio 46.4 RATIO (10-20); Calcium,Total 8.7 mg/dL (8.5-10.1); Chloride 103 mmol/L (98-107); Creatinine, Serum 0.62 mg/dL (0.55-1.02); EST Glomerular Filtration Rate 99 mL/min (>60); Est Glom Filt Rate - Afr Amer 120 mL/min (>60); Estimated Creatinine Clearance 35.45 ml/min; Glucose 103 mg/dL (74-106); Potassium 4.3 mmol/L (3.5-5.1); Protein, Total 6.4 g/dL (6.4-8.2); Sodium Level 138 mmol/L (136-145)
--- NOTE | 2020-12-05 06:19 | PCM.PN.INT ---
Assessment & Plan Assessment/Plan (1) Acute respiratory failure with hypoxia: Status: Acute Code(s): J96.01 - Acute respiratory failure with hypoxia (2) COVID-19: Status: Acute Code(s): U07.1 - COVID-19 Plan: RECOMMENDATIONS: 1. Continue Airvo heated high flow and wean FiO2 to maintain oxygen saturations at or above 90%. 2. Continue Decadron to complete treatment course. 3. Continue Eliquis as ordered. 4. Encourage incentive spirometer use and mobilize patient as tolerated. IMPRESSIONS: 1. Acute hypoxic respiratory failure secondary to COVID-19 pneumonia The patient did present to the hospital with a protracted course over several weeks. Therefore, she was not deemed to be a candidate for remdesivir. We will plan to continue current supportive measures including high flow oxygen to maintain saturations at or above 90%. Plan to continue Decadron as well to complete a 10-day treatment course. Given the patient's increased D-dimer level, it is reasonable to continue her on Eliquis. Continue to encourage incentive spirometer use. 2. Acute kidney injury Resolved. Patient does not have routine medical care. Creatinine is slightly elevated for body size at 1.35 on presentation. Initially unclear if this represents acute kidney injury secondary to hypoxia versus chronic kidney disease. Patient has had improvement during hospitalization indicating this may be attributed to acute kidney injury secondary to hypoxia and decreased p.o. intake secondary to fever. 3. Poor primary care/protracted presentation/advanced age/vaginal prolapse Complicates care, management, recovery and prognosis. Patient would benefit from establishing a routine relationship with a PCP on discharge. Patient reportedly has been seen by gynecology in the past and has elected for conservative therapy. This note was generated with [employer] dictation software. It may contain incorrect words, spelling, and punctuation that were not noted in checking the note before signing. Subjective Subjective: The patient was seen and examined at the bedside this morning. Events from the last 24 hours have been reviewed. The patient is currently afebrile, hemodynamically stable and maintaining appropriate oxygen saturations on Airvo heated high flow oxygen with an FiO2 requirement of 60% and flow rate of 40 L/min. White count remains elevated at 18,000. Creatinine is within normal limits. The patient is currently documented to be overall net -1 L for the hospital admission. Objective Data Objective Data The patient's most recent lab work, culture data and imaging studies have all been personally reviewed. Rapid coronavirus antigen testing was positive on November 30. The remainder of the patient's infectious work-up has been unremarkable. Surface echocardiogram from November 30 revealed a normal ejection fraction of 55 to 60%. Right ventricular systolic pressure was unable to be estimated. Vital Signs: Vital Signs Temp Pulse Resp BP Pulse Ox 97.8 F 79 18 125/84 H 91 12/05/20 04:00 12/05/20 05:03 12/05/20 04:00 12/05/20 04:00 12/05/20 05:03 Oxygen Flow Rate (L/min) 40 Oxygen Delivery Method Airvo Weight: 126 lb 1.671 oz Body Mass Index (BMI) 25.4 Intake & Output: Intake and Output for Last 24 Hours 12/03/20 12/04/20 12/05/20 23:59 23:59 23:59 Intake Total 560 / 560 670 / 670 Output Total 1500 / 1575 1200 / 1350 250 / 250 Balance -940 / -1015 -530 / -680 -250 / -250 Lab / Micro Data Result Diagrams: 12/11/20 06:56 12/11/20 06:56 Labs: Laboratory Results - last 24 hr 12/04/20 12/04/20 12/04/20 07:00 07:00 08:56 WBC 19.6 H RBC 4.91 Hgb 14.7 Hct 44.1 MCV 89.8 MCH 29.9 MCHC 33.3 RDW Std Deviation 42.0 RDW Coeff of Leah 12.6 Plt Count 257 MPV 9.4 Immature Gran % (Auto) Neut % (Auto) Lymph % (Auto) [place] % (Auto) Eos % (Auto) Baso % (Auto) Absolute Neuts (auto) Absolute Lymphs (auto) Nucleated RBC % D-Dimer Quant (PE/DVT) 5.77 H* Sodium 139 Potassium 4.9 Chloride 103 Carbon Dioxide 25.0 Anion Gap 11 BUN 27 H Creatinine 0.65 Estim Creat Clear Calc 35.45 Est GFR (MDRD) Af Amer 115 Est GFR (MDRD) Non-Af 95 BUN/Creatinine Ratio 41.8 H Glucose 93 Calcium 8.7 Total Bilirubin 0.90 AST 66 H ALT 55 Alkaline Phosphatase 99 Total Protein 6.4 Albumin 2.6 L Globulin 3.8 Albumin/Globulin Ratio 0.7 L 12/05/20 12/05/20 03:20 03:20 WBC 17.5 H RBC 4.56 Hgb 13.7 Hct 41.2 MCV 90.4 MCH 30.0 MCHC 33.3 RDW Std Deviation 42.3 RDW Coeff of Leah 12.9 Plt Count 227 MPV 9.4 Immature Gran % (Auto) 4.500 H Neut % (Auto) 86.5 H Lymph % (Auto) 5.2 L [place] % (Auto) 2.4 Eos % (Auto) 0.9 Baso % (Auto) 0.5 Absolute Neuts (auto) 15.2 H Absolute Lymphs (auto) 0.91 Nucleated RBC % 0.1 D-Dimer Quant (PE/DVT) Sodium 138 Potassium 4.3 Chloride 103 Carbon Dioxide 27.0 Anion Gap 8 BUN 29 H Creatinine 0.62 Estim Creat Clear Calc 35.45 Est GFR (MDRD) Af Amer 120 Est GFR (MDRD) Non-Af 99 BUN/Creatinine Ratio 46.4 H Glucose 103 Calcium 8.7 Total Bilirubin 0.70 AST 48 H ALT 63 H Alkaline Phosphatase 96 Total Protein 6.4 Albumin 2.4 L Globulin 4.0 Albumin/Globulin Ratio 0.6 L Micro: Microbiology 11/30/20 10:25 Urine, Clean Catch Urine Culture - Final Culture exhibits no growth. 11/30/20 10:13 Blood Culture (Wb) - Anticubital Right Blood Culture - Preliminary No growth in 48 hours. 11/30/20 10:00 Blood Culture (Wb) - Anticubital Left Blood Culture - Preliminary No growth in 48 hours. 11/30/20 10:15 Nasal Secretion SARS-CoV-2 Antigen (Rapid) - Final SARS-CoV-2 (COVID 19) Rhythm Strip Rhythm Strip: Sinus Tach Rate: 112 Ectopy: None Physical Exam Const alert, oriented x3 and no apparent distress General Appearance: cooperative and well developed HEENT normocephalic and head/scalp atraumatic Eyes PERRL, EOMs intact bilaterally, conjunctivae normal and no scleral icterus Neck full ROM Lymph Lymphatic: no lymphadenopathy noted Chest inspection of chest normal Resp normal respiratory effort Auscultation: diminished lung sounds; Negative for rales, rhonchi or wheezes Cardio regular rate, regular rhythm, S1 normal heart sound, S2 normal heart sound, no murmurs, no rub and no gallops Peripheral Pulses: pulses 2+ throughout GI normal to inspection, nondistended, normoactive bowel sounds no CVA tenderness Extremity no clubbing, cyanosis or edema Skin no rashes or lesions noted Neuro oriented x3 and CN's II-XII intact bilaterally Psych cooperative and affect normal Charges/Coding Visit Charges Inpatient E&M: 45678 Subs Hosp L3
--- NOTE | 2020-12-05 06:30 | PN.HOSP_ITS ---
Subjective Subjective: Patient overnight with no acute events per self and per nursing report. Patient again on higher airflow overnight however this a.m. again able to de-escalate down. Patient up and moving with greater ease than even day prior. She notes feeling less dyspneic and less coughing ongoing. Patient with ongoing leukocytosis although on current steroid regimen. Patient denies fevers, chills, nausea, emesis, abdominal pain, chest pain. Objective Data Objective Data Vital Signs: Vital Signs Temp Pulse Resp BP Pulse Ox 97.8 F 77 23 H 131/88 H 94 12/05/20 04:00 12/05/20 06:00 12/05/20 06:00 12/05/20 06:00 12/05/20 06:00 Oxygen Flow Rate (L/min) 40 Oxygen Delivery Method Airvo Weight: 126 lb 1.671 oz Body Mass Index (BMI) 25.4 Intake & Output: Intake and Output for Last 24 Hours 12/03/20 12/04/20 12/05/20 23:59 23:59 23:59 Intake Total 560 / 560 670 / 670 Output Total 1500 / 1575 1200 / 1350 250 / 250 Balance -940 / -1015 -530 / -680 -250 / -250 Lab / Micro Data Result Diagrams: 12/05/20 03:20 12/05/20 03:20 Labs: Laboratory Results - last 24 hr 12/04/20 12/04/20 12/04/20 07:00 07:00 08:56 WBC 19.6 H RBC 4.91 Hgb 14.7 Hct 44.1 MCV 89.8 MCH 29.9 MCHC 33.3 RDW Std Deviation 42.0 RDW Coeff of Leah 12.6 Plt Count 257 MPV 9.4 Immature Gran % (Auto) Neut % (Auto) Lymph % (Auto) [place] % (Auto) Eos % (Auto) Baso % (Auto) Absolute Neuts (auto) Absolute Lymphs (auto) Nucleated RBC % D-Dimer Quant (PE/DVT) 5.77 H* Sodium 139 Potassium 4.9 Chloride 103 Carbon Dioxide 25.0 Anion Gap 11 BUN 27 H Creatinine 0.65 Estim Creat Clear Calc 35.45 Est GFR (MDRD) Af Amer 115 Est GFR (MDRD) Non-Af 95 BUN/Creatinine Ratio 41.8 H Glucose 93 Calcium 8.7 Total Bilirubin 0.90 AST 66 H ALT 55 Alkaline Phosphatase 99 Total Protein 6.4 Albumin 2.6 L Globulin 3.8 Albumin/Globulin Ratio 0.7 L 12/05/20 12/05/20 03:20 03:20 WBC 17.5 H RBC 4.56 Hgb 13.7 Hct 41.2 MCV 90.4 MCH 30.0 MCHC 33.3 RDW Std Deviation 42.3 RDW Coeff of Leah 12.9 Plt Count 227 MPV 9.4 Immature Gran % (Auto) 4.500 H Neut % (Auto) 86.5 H Lymph % (Auto) 5.2 L [place] % (Auto) 2.4 Eos % (Auto) 0.9 Baso % (Auto) 0.5 Absolute Neuts (auto) 15.2 H Absolute Lymphs (auto) 0.91 Nucleated RBC % 0.1 D-Dimer Quant (PE/DVT) Sodium 138 Potassium 4.3 Chloride 103 Carbon Dioxide 27.0 Anion Gap 8 BUN 29 H Creatinine 0.62 Estim Creat Clear Calc 35.45 Est GFR (MDRD) Af Amer 120 Est GFR (MDRD) Non-Af 99 BUN/Creatinine Ratio 46.4 H Glucose 103 Calcium 8.7 Total Bilirubin 0.70 AST 48 H ALT 63 H Alkaline Phosphatase 96 Total Protein 6.4 Albumin 2.4 L Globulin 4.0 Albumin/Globulin Ratio 0.6 L Micro: Microbiology 11/30/20 10:25 Urine, Clean Catch Urine Culture - Final Culture exhibits no growth. 11/30/20 10:13 Blood Culture (Wb) - Anticubital Right Blood Culture - Preliminary No growth in 48 hours. 11/30/20 10:00 Blood Culture (Wb) - Anticubital Left Blood Culture - Preliminary No growth in 48 hours. 11/30/20 10:15 Nasal Secretion SARS-CoV-2 Antigen (Rapid) - Final SARS-CoV-2 (COVID 19) Rhythm Strip Rhythm Strip: Sinus Tach Rate: 112 Ectopy: None Physical Exam Narrative Physical Examination: General: awake, alert, oriented x 3 and cooperative, seated upright in the ICU bed, preparing to get up to use restroom, less fatigued than day prior, able to move with greater ease. Skin: normal color, turgor, no icterus, cyanosis. HEENT: AT/NC, EOMI, PERRLA, improved MMM, airvo in place. Lungs: Remains diffusely diminished, greater bases, improving effort, no obvious evidence of distress, airvo in place, no rales, ronchi or wheezing. Heart: Regular rate and rhythm; no gallop, rub audible. Abdomen: soft, NTTP, ND, normal BS. Extremities: no cyanosis, clubbing, or edema. Neurological: patient awake, alert, oriented as noted; cognitive function intact; pupils equally reactive to light and accomodation; cranial nerves II-XII grossly normal, moving all 4 extremities, no focal deficits, strength improving, moderately to severely global decrease secondary to acute presentation. Psychiatric: affect appears less fatigued, no acute evidence of depressive or anxiety feelings. Assessment & Plan Assessment/Plan (1) Acute respiratory failure with hypoxia: Status: Acute Code(s): J96.01 - Acute respiratory failure with hypoxia (2) COVID-19: Status: Acute Code(s): U07.1 - COVID-19 (3) Metabolic encephalopathy: Status: Resolved Code(s): G93.41 - Metabolic encephalopathy (4) Elevated troponin: Status: Acute Code(s): R77.8 - Other specified abnormalities of plasma proteins (5) Lactic acidosis: Status: Resolved Code(s): E87.2 - Acidosis Plan: The patient is a 75 y/o F w/ PMHx: who presents to the [facility] ED on 11/30/20 with history of onset fatigue malaise, headaches, fever, chills, cough, dyspnea as well as body aches starting ~ 3 days prior to presentation with onset confusion and worsening respiratory status prompting ED evaluation. 1. Acute Hypoxic Respiratory Failure secondary to Acute Bilateral Pneumonia secondary to Suspected Acute Viral Syndrome, COVID-19: Patient to admitted to the ICU, pulmonary/medical care and infectious disease consulted, patient maintained on airvo oxygenation currently with wean as tolerated to NC and then if able RA, PRN albuterol, HOB, IS parameters, elevated d-dimer upon presentation and repeat, 12/04/20 transitioned from prophylactic lovenox to low dose BID apixiban per discussion with CC/ICU, LA initially 5-->2.6, LEI resolved, continue supportive care including q 2 hour turning, continue decadron x 10 doses, noted 11/30/[address] Zhou. Patient notes intention for vaccination once appropriate. Will need to complete 20 days of quarantine (Completion 12/11/20). 2. NSTEMI, likely secondary to #1, Demand Ischemia associated: Admission EKG without acute evidence of ischemia, trop 1.120-->1.670-->1.630, likely as noted secondary to #1, demand related with acute hypoxia secondary to COVID, maintained on telemetry, ECHO w/ EF 55 to 60%, mild diastolic dysfunction, mild AI, currently maintained on baby aspirin, initially was on prophylactic Lovenox transition to low-dose apixaban 12/04/2020 secondary to ongoing elevated D-dimer in the setting of #1. Given #1 cardiology consultation deferred and will plan follow-up with cardiology once #1 resolves on an outpatient basis. Patient BP low normal therefore not initiated on any beta-annabel therapy or JOON inhibitor/ARB. Given #1 statin therapy also deferred. 3. Acute kidney injury: Secondary to #1, poor intake complicated by acute illness. Admission BUN/Cr 38/1.04, prior baseline creatinine noted to be 0.6. Patient was judiciously hydrated given Covid presentation, repeat BMP/creatinine has normalized, 12/05/2020 BUN/creatinine 29/0.62, continue to trend. 4. Acute encephalopathy, metabolic: Patient with significant confusion initially upon presentation, likely associate with #1, #2, #3, CT head with no acute intracranial finding upon presentation, mental status has significantly improved with appropriate oxygenation and currently now at baseline. 5. Lactic acidosis: Admission lactic acid elevated, likely secondary to global ischemia given significant desaturation, initial 5.0 11/30/20-->2.6, improved, maintained on telemetry monitoring, cardiac enzyme trending as noted which was elevated consistent with NSTEMI likely secondary to demand. 6. DVT prophylaxis: SCDs, low dose BID eliquis. 7. CODE STATUS: Full code. Visit Charges Inpatient E&M: 05682 Subs Hosp L3
[2020-12-05] MEDS: Aspirin 81 MG TAB.CHEW PO (08:12)
[2020-12-05] MEDS: dexAMETHasone 4 MG Tablet 6 MG PO (08:12)
[2020-12-05] MEDS: APIXABAN 2.5 MG TABLET PO ×2 (08:12→20:52)
[2020-12-05] MEDS: Ibuprofen 400 MG Tablet PO (08:12)
--- NOTE | 2020-12-05 10:08 | CASEMGMT ---
This RN CM participated in ICU multidisciplinary rounds. Pt is still on airvo at 40 L, 62% O2 and a min assist with therapy. CM to follow for therapy notes, Eliquis, and home oxygen need. SStaten RN CM
--- NOTE | 2020-12-05 10:17 | EKG12_ITS ---
Test Reason : POST STEMI Blood Pressure : / mmHG Vent. Rate : 076 BPM Atrial Rate : 076 BPM P-R Int : 138 ms QRS Dur : 130 ms QT Int : 440 ms P-R-T Axes : 052 053 010 degrees QTc Int : 495 ms Sinus rhythm with marked sinus arrhythmia with Premature atrial complexes Right bundle branch block Abnormal ECG Confirmed by WILLIE CARLSON, YU ([id number]), editorial clerk LAKSHMI BEVERLY ([id number]) on 12/07/2020 9:19:09 AM Referred By: ALEXA Confirmed By:YU TAPIA MD
[2020-12-05] MEDS: MENTHOL 226.8 GM JAR 1 APPLIC TOPICAL ×2 (16:20→20:52)
[2020-12-05] MEDS: MELATONIN 10 MG TABLET PO (20:52)
[2020-12-05] MEDS: Acetaminophen 325 MG Tablet 650 MG PO (20:52)
[2020-12-05] MEDS: 0.9% Saline Lock 10 ML Syringe IV (20:53)
[2020-12-06] VITALS (16 sets, daily range): BP systolic 100–129; BP diastolic 66–85; PULSE 73–102; RESP 18–30; TEMP 36.1–36.6; O2SAT 90–97
[2020-12-06 05:45] LABS: Absolute Lymphocyte Count 0.75 X10^3/uL (0.83-4.51); Absolute Neutrophil Count 16.4 X10^3/uL (2.0-7.7); Basophil# 0.08 X10^3/uL; Basophil% 0.4 % (0-1); Eosinophil# 0.42 X10^3/uL; Eosinophils% 2.2 % (0-5); Hematocrit 41.2 % (37-47); Hemoglobin 13.9 g/dL (12.0-15.0); Lymphocyte # 0.75 X10^3/ul (0.83-4.51); Lymphocyte % 3.9 % (19-41); Mean Corp Hgb Conc 33.7 g/dL (32-36); Mean Corpuscular Hgb 30.5 pg (27.0-32.0); Mean Corpuscular Volume 90.5 fL (81-99); Mean Platelet Vol. 9.6 fl (6.2-12.0); Monocyte# 0.54 X10^3/uL; Monocyte% 2.8 % (0-10); NRBC Flagged by Analyzer 0 % (0-5); Neutrophil # 16.42 X10^3/uL (2.7-7.7); Neutrophil % 86.4 % (47-70); Platelet Count 193 K/mm3 (150-450); RBC Distribution Width SD 42.6 fl (35.1-43.9); Red Blood Count 4.55 M/mm3 (4.2-5.4)
[2020-12-06 06:03] LABS: ALB/GLOB Ratio 0.6 RATIO (0.9-2.4); AST(SGOT) 39 U/L (15-37); Alanine Aminotransfer ALT/SGPT 66 U/L (13-56); Albumin, Serum 2.4 g/dL (3.2-5.0); Alkaline Phosphatase 98 U/L (45-117); Anion Gap 5 (5-15); BUN 29 mg/dL (7-18); Calcium,Total 9.1 mg/dL (8.5-10.1); Chloride 105 mmol/L (98-107); Creatinine, Serum 0.64 mg/dL (0.55-1.02); EST Glomerular Filtration Rate 96 mL/min (>60); Est Glom Filt Rate - Afr Amer 116 mL/min (>60); Estimated Creatinine Clearance 35.45 ml/min; Globulin 4.3 g/dL (2.2-4.2); Glucose 95 mg/dL (74-106); Potassium 4.7 mmol/L (3.5-5.1); Protein, Total 6.7 g/dL (6.4-8.2); Sodium Level 138 mmol/L (136-145)
--- NOTE | 2020-12-06 06:24 | PCM.PN.HOSP ---
Subjective Subjective: Patient with no acute events overnight per self and per nursing report. Patient transitioned well without issue from ICU to PCU status. Patient does report improved energy. She has been up and out of bed more than previously. She notes still some mild cough but certainly lessening and no significant dyspnea with decreasing usage of FiO2 but still requiring airvo usage. Patient denies fevers, chills, nausea, emesis, abdominal pain, chest pain or dyspnea. Objective Data Objective Data Vital Signs: Vital Signs Temp Pulse Resp BP Pulse Ox 97.8 F 79 21 H 127/71 H 91 12/06/20 02:21 12/06/20 03:00 12/06/20 02:32 12/06/20 02:21 12/06/20 02:32 Oxygen Flow Rate (L/min) 40 Oxygen Delivery Method Airvo Weight: 124 lb 8.979 oz Body Mass Index (BMI) 25.4 Intake & Output: Intake and Output for Last 24 Hours 12/04/20 12/05/20 12/06/20 23:59 23:59 23:59 Intake Total 670 / 670 580 / 880 600 / 600 Output Total 1200 / 1350 650 / 650 Balance -530 / -680 -70 / 230 600 / 600 Lab / Micro Data Result Diagrams: 12/06/20 05:40 12/06/20 05:40 Labs: Laboratory Results - last 24 hr 12/06/20 12/06/20 05:40 05:40 WBC 19.0 H RBC 4.55 Hgb 13.9 Hct 41.2 MCV 90.5 MCH 30.5 MCHC 33.7 RDW Std Deviation 42.6 RDW Coeff of Leah 13.0 Plt Count 193 MPV 9.6 Immature Gran % (Auto) 4.300 H Neut % (Auto) 86.4 H Lymph % (Auto) 3.9 L [place] % (Auto) 2.8 Eos % (Auto) 2.2 Baso % (Auto) 0.4 Absolute Neuts (auto) 16.4 H Absolute Lymphs (auto) 0.75 L Nucleated RBC % 0 Sodium 138 Potassium 4.7 Chloride 105 Carbon Dioxide 28.0 Anion Gap 5 BUN 29 H Creatinine 0.64 Estim Creat Clear Calc 35.45 Est GFR (MDRD) Af Amer 116 Est GFR (MDRD) Non-Af 96 BUN/Creatinine Ratio 45.0 H Glucose 95 Calcium 9.1 Total Bilirubin 0.70 AST 39 H ALT 66 H Alkaline Phosphatase 98 Total Protein 6.7 Albumin 2.4 L Globulin 4.3 H Albumin/Globulin Ratio 0.6 L Micro: Microbiology 11/30/20 10:13 Blood Culture (Wb) - Anticubital Right Blood Culture - Final No growth in 5 days. 11/30/20 10:00 Blood Culture (Wb) - Anticubital Left Blood Culture - Final No growth in 5 days. 11/30/20 10:25 Urine, Clean Catch Urine Culture - Final Culture exhibits no growth. 11/30/20 10:15 Nasal Secretion SARS-CoV-2 Antigen (Rapid) - Final SARS-CoV-2 (COVID 19) Rhythm Strip Rhythm Strip: Sinus Tach Rate: 112 Ectopy: None Physical Exam Narrative Physical Examination: General: awake, alert, oriented x 3 and cooperative, seated upright in the PCU bedside chair, no acute distress, less fatigue. Skin: normal color, turgor, no icterus, cyanosis. HEENT: AT/NC, EOMI, PERRLA, MMM, remains on airvo. Lungs: Remains diffusely diminished, greater bases, appropriate effort, no evidence of any distress, remains on airvo, no rales, ronchi or wheezing. Heart: Regular rate and rhythm; no gallop, rub audible. Abdomen: soft, NTTP, ND, normal BS. Extremities: no cyanosis, clubbing, or edema. Neurological: patient awake, alert, oriented as noted; cognitive function intact; pupils equally reactive to light and accomodation; cranial nerves II-XII grossly normal, moving all 4 extremities, no focal deficits, strength improving, moderately global decrease. Psychiatric: affect appears improved, normal, no acute evidence of depressive or anxiety feelings. Assessment & Plan Assessment/Plan (1) Acute respiratory failure with hypoxia: Status: Acute Code(s): J96.01 - Acute respiratory failure with hypoxia (2) COVID-19: Status: Acute Code(s): U07.1 - COVID-19 (3) Metabolic encephalopathy: Status: Resolved Code(s): G93.41 - Metabolic encephalopathy (4) Elevated troponin: Status: Acute Code(s): R77.8 - Other specified abnormalities of plasma proteins (5) Lactic acidosis: Status: Resolved Code(s): E87.2 - Acidosis Plan: The patient is a 75 y/o F w/ PMHx: who presents to the [facility] ED on 11/30/20 with history of onset fatigue malaise, headaches, fever, chills, cough, dyspnea as well as body aches starting ~ 3 days prior to presentation with onset confusion and worsening respiratory status prompting ED evaluation. 1. Acute Hypoxic Respiratory Failure secondary to Acute Bilateral Pneumonia secondary to Suspected Acute Viral Syndrome, COVID-19: Patient to admitted to the ICU initially with PCU transition 12/05/20 given clinical improvement, pulmonary/medical care and infectious disease consulted, patient maintained on airvo oxygenation currently with wean as tolerated to NC and then if able RA, PRN albuterol, HOB, IS parameters, elevated d-dimer upon presentation and repeat, 12/04/20 transitioned from prophylactic lovenox to low dose BID apixiban per discussion with CC/ICU, LA initially 5-->2.6, LEI resolved, continue supportive care including q 2 hour turning, continue decadron x 10 doses, noted 11/30/[address] Zhou. Patient notes intention for vaccination once appropriate. Will need to complete 20 days of quarantine (Completion 12/11/20). 2. NSTEMI, likely secondary to #1, Demand Ischemia associated: Admission EKG without acute evidence of ischemia, trop 1.120-->1.670-->1.630, likely as noted secondary to #1, demand related with acute hypoxia secondary to COVID, maintained on telemetry, ECHO w/ EF 55 to 60%, mild diastolic dysfunction, mild AI, currently maintained on baby aspirin, initially was on prophylactic Lovenox transition to low-dose apixaban 12/04/2020 secondary to ongoing elevated D-dimer in the setting of #1. Given #1 cardiology consultation deferred and will plan follow-up with cardiology once #1 resolves on an outpatient basis. Patient BP low normal therefore not initiated on any beta-annabel therapy or JOON inhibitor/ARB. Given #1 statin therapy also deferred. 3. Acute kidney injury: Secondary to #1, poor intake complicated by acute illness. Admission BUN/Cr 38/1.04, prior baseline creatinine noted to be 0.6. Patient was judiciously hydrated given Covid presentation, 12/06/2020 BUN/creatinine 29/0.54, resolved, continue to trend. 4. Acute encephalopathy, metabolic: Patient with significant confusion initially upon presentation, likely associate with #1, #2, #3, CT head with no acute intracranial finding upon presentation, mental status returned to baseline, resolved. 5. Lactic acidosis: Admission lactic acid elevated, likely secondary to global ischemia given significant desaturation, initial 5.0 11/30/20-->2.6, improved, maintained on telemetry monitoring, cardiac enzyme trending as noted which was elevated consistent with NSTEMI likely secondary to demand. PCU transition without issue 12/05/20. 6. DVT prophylaxis: SCDs, low dose BID eliquis. 7. CODE STATUS: Full code. Visit Charges Inpatient E&M: 39810 Subs Hosp L2
[2020-12-06] MEDS: Aspirin 81 MG TAB.CHEW PO (09:36)
[2020-12-06] MEDS: Acetaminophen 325 MG Tablet 650 MG PO ×2 (09:36→21:02)
[2020-12-06] MEDS: dexAMETHasone 4 MG Tablet 6 MG PO (09:37)
[2020-12-06] MEDS: APIXABAN 2.5 MG TABLET PO ×2 (09:38→21:01)
[2020-12-06] MEDS: MENTHOL 226.8 GM JAR 1 APPLIC TOPICAL ×2 (09:49→21:01)
--- NOTE | 2020-12-06 12:09 | PCM.PN.INT ---
Subjective Subjective: The patient was seen and examined at the bedside this morning. Events from the last 24 hours have been reviewed. The patient is currently afebrile, hemodynamically stable and maintaining appropriate oxygen saturations on Airvo heated high flow oxygen with an FiO2 requirement of 65% and flow rate of 40 L/min. White count remains elevated at 19,000. Creatinine is within normal limits. The patient is currently documented to be overall net -250 mL for the hospital admission. She remains on Eliquis and Decadron. Objective Data Objective Data The patient's most recent lab work, culture data and imaging studies have all been personally reviewed. Rapid coronavirus antigen testing was positive on November 30. The remainder of the patient's infectious work-up has been unremarkable. Surface echocardiogram from November 30 revealed a normal ejection fraction of 55 to 60%. Right ventricular systolic pressure was unable to be estimated. Vital Signs: Vital Signs Temp Pulse Resp BP Pulse Ox 97.9 F 100 18 112/71 97 12/06/20 08:20 12/06/20 08:20 12/06/20 08:20 12/06/20 08:20 12/06/20 08:20 Oxygen Flow Rate (L/min) 40 Oxygen Delivery Method Airvo Weight: 124 lb 8.979 oz Body Mass Index (BMI) 25.4 Intake & Output: Intake and Output for Last 24 Hours 12/04/20 12/05/20 12/06/20 23:59 23:59 23:59 Intake Total 670 / 670 580 / 880 600 / 600 Output Total 1200 / 1350 650 / 650 Balance -530 / -680 -70 / 230 600 / 600 Lab / Micro Data Attestation: I reviewed the patient's lab results. Result Diagrams: 12/06/20 05:40 12/06/20 05:40 Labs: Laboratory Results - last 24 hr 12/06/20 12/06/20 05:40 05:40 WBC 19.0 H RBC 4.55 Hgb 13.9 Hct 41.2 MCV 90.5 MCH 30.5 MCHC 33.7 RDW Std Deviation 42.6 RDW Coeff of Leah 13.0 Plt Count 193 MPV 9.6 Immature Gran % (Auto) 4.300 H Neut % (Auto) 86.4 H Lymph % (Auto) 3.9 L [place] % (Auto) 2.8 Eos % (Auto) 2.2 Baso % (Auto) 0.4 Absolute Neuts (auto) 16.4 H Absolute Lymphs (auto) 0.75 L Nucleated RBC % 0 Sodium 138 Potassium 4.7 Chloride 105 Carbon Dioxide 28.0 Anion Gap 5 BUN 29 H Creatinine 0.64 Estim Creat Clear Calc 35.45 Est GFR (MDRD) Af Amer 116 Est GFR (MDRD) Non-Af 96 BUN/Creatinine Ratio 45.0 H Glucose 95 Calcium 9.1 Total Bilirubin 0.70 AST 39 H ALT 66 H Alkaline Phosphatase 98 Total Protein 6.7 Albumin 2.4 L Globulin 4.3 H Albumin/Globulin Ratio 0.6 L Micro: Microbiology 11/30/20 10:13 Blood Culture (Wb) - Anticubital Right Blood Culture - Final No growth in 5 days. 11/30/20 10:00 Blood Culture (Wb) - Anticubital Left Blood Culture - Final No growth in 5 days. 11/30/20 10:25 Urine, Clean Catch Urine Culture - Final Culture exhibits no growth. 11/30/20 10:15 Nasal Secretion SARS-CoV-2 Antigen (Rapid) - Final SARS-CoV-2 (COVID 19) Rhythm Strip Rhythm Strip: Sinus Tach Rate: 112 Ectopy: None Physical Exam Const alert, oriented x3 and no apparent distress General Appearance: cooperative and well developed HEENT normocephalic and head/scalp atraumatic Eyes PERRL, EOMs intact bilaterally, conjunctivae normal and no scleral icterus Neck full ROM Lymph Lymphatic: no lymphadenopathy noted Chest inspection of chest normal Resp normal respiratory effort Auscultation: diminished lung sounds; Negative for rales, rhonchi or wheezes Cardio regular rate, regular rhythm, S1 normal heart sound, S2 normal heart sound, no murmurs, no rub and no gallops Peripheral Pulses: pulses 2+ throughout GI normal to inspection, nondistended, normoactive bowel sounds no CVA tenderness Extremity no clubbing, cyanosis or edema Skin no rashes or lesions noted Neuro oriented x3 and CN's II-XII intact bilaterally Psych cooperative and affect normal Assessment & Plan Assessment/Plan (1) Acute respiratory failure with hypoxia: Status: Acute Code(s): J96.01 - Acute respiratory failure with hypoxia (2) COVID-19: Status: Acute Code(s): U07.1 - COVID-19 Plan: RECOMMENDATIONS: 1. Continue Airvo heated high flow and wean FiO2 to maintain oxygen saturations at or above 90%. 2. Continue Decadron to complete treatment course. 3. Continue Eliquis as ordered. 4. Encourage incentive spirometer use and mobilize patient as tolerated. 5. Attempt gentle diuresis as tolerated by hemodynamics and renal function. IMPRESSIONS: 1. Acute hypoxic respiratory failure secondary to COVID-19 pneumonia The patient did present to the hospital with a protracted course over several weeks. Therefore, she was not deemed to be a candidate for remdesivir. We will plan to continue current supportive measures including high flow oxygen to maintain saturations at or above 90%. Plan to continue Decadron as well to complete a 10-day treatment course. Given the patient's increased D-dimer level, it is reasonable to continue her on Eliquis. Continue to encourage incentive spirometer use. 2. Acute kidney injury Resolved. Patient does not have routine medical care. Creatinine is slightly elevated for body size at 1.35 on presentation. Initially unclear if this represents acute kidney injury secondary to hypoxia versus chronic kidney disease. Patient has had improvement during hospitalization indicating this may be attributed to acute kidney injury secondary to hypoxia and decreased p.o. intake secondary to fever. 3. Poor primary care/protracted presentation/advanced age/vaginal prolapse Complicates care, management, recovery and prognosis. Patient would benefit from establishing a routine relationship with a PCP on discharge. Patient reportedly has been seen by gynecology in the past and has elected for conservative therapy. This note was generated with [employer] dictation software. It may contain incorrect words, spelling, and punctuation that were not noted in checking the note before signing. Visit Charges Inpatient E&M: 30484 Subs Hosp L2
[2020-12-06] MEDS: 0.9% Saline Lock 10 ML Syringe IV (15:00)
[2020-12-06] MEDS: Furosemide 40 MG/4 ML Vial IV (15:00)
[2020-12-06] MEDS: MELATONIN 10 MG TABLET PO (21:01)
[2020-12-07] VITALS (18 sets, daily range): BP systolic 106–128; BP diastolic 73–87; PULSE 76–108; RESP 18–28; TEMP 36.4–36.8; O2SAT 92–96
--- NOTE | 2020-12-07 05:46 | CPS ---
6L nasal cannula attempted with pt. this morning. Trialed the pt. on 6L for roughtly 5 minutes. SpO2 started out at 92%, but slowly dipped down until she was 88%. Pt. maintained 88% SpO2 for roughly 3 minutes. AirVo placed back into pt.'s nose, and she was made aware that day shift RT will attempt to titrate her down to 6L nasal cannula later on in the day (oxygenation needs must continue to improve).
--- NOTE | 2020-12-07 06:26 | PCM.PN.HOSP ---
Subjective Subjective: Patient with no acute events overnight per self and per nursing report. Patient remains on air Vo with continued oxygen flow rate 40 L/min with FiO2 ranging in the 60s through the evening and into the day. Patient notes she is still coughing some but again lessened and she denies worsening dyspnea. She does have mildly increased respiratory rate she notes when she is active or even after eating but otherwise notes feeling improved. Patient denies fevers, chills, nausea, emesis, abdominal pain, chest pain. Objective Data Objective Data Vital Signs: Vital Signs Temp Pulse Resp BP Pulse Ox 98.3 F 78 20 H 106/76 92 12/07/20 05:00 12/07/20 05:20 12/07/20 05:20 12/07/20 05:00 12/07/20 05:20 Oxygen Flow Rate (L/min) 40 Oxygen Delivery Method Airvo Weight: 124 lb 8.979 oz Body Mass Index (BMI) 25.4 Intake & Output: Intake and Output for Last 24 Hours 12/05/20 12/06/20 12/07/20 23:59 23:59 23:59 Intake Total 580 / 880 600 / 780 240 / 240 Output Total 650 / 650 Balance -70 / 230 600 / 780 240 / 240 Lab / Micro Data Result Diagrams: 12/07/20 06:10 12/07/20 06:10 Micro: Microbiology 11/30/20 10:13 Blood Culture (Wb) - Anticubital Right Blood Culture - Final No growth in 5 days. 11/30/20 10:00 Blood Culture (Wb) - Anticubital Left Blood Culture - Final No growth in 5 days. 11/30/20 10:25 Urine, Clean Catch Urine Culture - Final Culture exhibits no growth. 11/30/20 10:15 Nasal Secretion SARS-CoV-2 Antigen (Rapid) - Final SARS-CoV-2 (COVID 19) Rhythm Strip Rhythm Strip: Sinus Tach Rate: 112 Ectopy: None Physical Exam Narrative Physical Examination: General: awake, alert, oriented x 3 and cooperative, seated upright in the PCU bed, NAD, airvo in place. Skin: normal color, turgor, no icterus, cyanosis. HEENT: AT/NC, EOMI, PERRLA, MMM, remains on airvo. Lungs: Improving but still diminished, coughing elicited with exam, no evidence of any distress, remains on airvo, no rales, ronchi or wheezing. Heart: Regular rate and rhythm; no gallop, rub audible. Abdomen: soft, NTTP, ND, normal BS. Extremities: no cyanosis, clubbing, or edema. Neurological: patient awake, alert, oriented as noted; cognitive function intact; pupils equally reactive to light and accomodation; cranial nerves II-XII grossly normal, moving all 4 extremities, no focal deficits, strength improving, moderately globally decreased. Psychiatric: affect appears normal, reports being eager for discharge, no acute evidence of depressive or anxiety feelings. Assessment & Plan Assessment/Plan (1) Acute respiratory failure with hypoxia: (2) COVID-19: (3) Metabolic encephalopathy: (4) Elevated troponin: (5) Lactic acidosis: PLAN: The patient is a 75 y/o F w/ PMHx: who presents to the [facility] ED on 11/30/20 with history of onset fatigue malaise, headaches, fever, chills, cough, dyspnea as well as body aches starting ~ 3 days prior to presentation with onset confusion and worsening respiratory status prompting ED evaluation. 1. Acute Hypoxic Respiratory Failure secondary to Acute Bilateral Pneumonia secondary to Suspected Acute Viral Syndrome, COVID-19: Patient to admitted to the ICU initially with PCU transition 12/05/20 given clinical improvement, pulmonary/medical care and infectious disease consulted, patient maintained on airvo oxygenation currently with wean as tolerated to NC and then if able RA, PRN albuterol, HOB, IS parameters, elevated d-dimer upon presentation and repeat, 12/04/20 transitioned from prophylactic lovenox to low dose BID apixiban per discussion with CC/ICU, LA initially 5-->2.6, LEI resolved, continue supportive care including q 2 hour turning, continue decadron x 10 doses, noted 11/30/[address] Zhou. Patient notes intention for vaccination once appropriate. Will need to complete 20 days of quarantine (Completion 12/11/20). Suspect will need discharge on oxygenation as has had notable prolonged airvo usage needs. 2. NSTEMI, likely secondary to #1, Demand Ischemia associated: Admission EKG without acute evidence of ischemia, trop 1.120-->1.670-->1.630, likely as noted secondary to #1, demand related with acute hypoxia secondary to COVID, maintained on telemetry, ECHO w/ EF 55 to 60%, mild diastolic dysfunction, mild AI, currently maintained on baby aspirin, initially was on prophylactic Lovenox transition to low-dose apixaban 12/04/2020 secondary to ongoing elevated D-dimer in the setting of #1. Given #1 cardiology consultation deferred and will plan follow-up with cardiology once #1 resolves on an outpatient basis. Patient BP low normal therefore not initiated on any beta-annabel therapy or JOON inhibitor/ARB. Given #1 statin therapy also deferred. 3. Acute kidney injury: Secondary to #1, poor intake complicated by acute illness. Admission BUN/Cr 38/1.04, prior baseline creatinine noted to be 0.6. Patient was judiciously hydrated given Covid presentation, 12/07/2020 BUN/creatinine 32/0.55, resolved, continue to trend. 4. Acute encephalopathy, metabolic: Patient with significant confusion initially upon presentation, likely associate with #1, #2, #3, CT head with no acute intracranial finding upon presentation, mental status returned to baseline, resolved. 5. Lactic acidosis: Admission lactic acid elevated, likely secondary to global ischemia given significant desaturation, initial 5.0 11/30/20-->2.6, improved, maintained on telemetry monitoring, cardiac enzyme trending as noted which was elevated consistent with NSTEMI likely secondary to demand. PCU transition without issue 12/05/20. 6. DVT prophylaxis: SCDs, low dose BID eliquis. 7. CODE STATUS: Full code. Visit Charges Inpatient E&M: 04708 Subs Hosp L2
[2020-12-07 07:13] LABS: Absolute Lymphocyte Count 0.56 X10^3/uL (0.83-4.51); Absolute Neutrophil Count 14.4 X10^3/uL (2.0-7.7); Basophil# 0.08 X10^3/uL; Basophil% 0.5 % (0-1); Eosinophil# 0.18 X10^3/uL; Eosinophils% 1.1 % (0-5); Hemoglobin 13.5 g/dL (12.0-15.0); Lymphocyte # 0.56 X10^3/ul (0.83-4.51); Lymphocyte % 3.4 % (19-41); Mean Corp Hgb Conc 32.9 g/dL (32-36); Mean Corpuscular Volume 91.1 fL (81-99); Mean Platelet Vol. 10.3 fl (6.2-12.0); Monocyte# 0.55 X10^3/uL; Monocyte% 3.3 % (0-10); NRBC Flagged by Analyzer 0 % (0-5); Neutrophil % 87.3 % (47-70); POSITIVE DIFFERENTIAL YES; Platelet Count 209 K/mm3 (150-450); RBC Distribution Width SD 42.6 fl (35.1-43.9); White Blood Count 16.5 K/mm3 (4.4-11.0)
[2020-12-07 07:16] LABS: Differential Indicated SCAN CRITERIA MET
[2020-12-07 07:41] LABS: ALB/GLOB Ratio 0.5 RATIO (0.9-2.4); AST(SGOT) 27 U/L (15-37); Alanine Aminotransfer ALT/SGPT 58 U/L (13-56); Albumin, Serum 2.2 g/dL (3.2-5.0); Alkaline Phosphatase 100 U/L (45-117); Anion Gap 7 (5-15); BUN 32 mg/dL (7-18); BUN/Creat Ratio 57.9 RATIO (10-20); Chloride 101 mmol/L (98-107); Creatinine, Serum 0.55 mg/dL (0.55-1.02); EST Glomerular Filtration Rate 114 mL/min (>60); Est Glom Filt Rate - Afr Amer 138 mL/min (>60); Estimated Creatinine Clearance 35.45 ml/min; Globulin 4.1 g/dL (2.2-4.2); Glucose 105 mg/dL (74-106); Potassium 4.5 mmol/L (3.5-5.1); Protein, Total 6.3 g/dL (6.4-8.2); Sodium Level 136 mmol/L (136-145)
[2020-12-07 08:05] LABS: Differential Comment SCANNED
[2020-12-07] MEDS: APIXABAN 2.5 MG TABLET PO ×2 (10:36→22:37)
[2020-12-07] MEDS: dexAMETHasone 4 MG Tablet 6 MG PO (10:36)
[2020-12-07] MEDS: Aspirin 81 MG TAB.CHEW PO (10:36)
[2020-12-07] MEDS: MENTHOL 226.8 GM JAR 1 APPLIC TOPICAL (10:41)
[2020-12-07] MEDS: Acetaminophen 325 MG Tablet 650 MG PO (22:37)
[2020-12-07] MEDS: MELATONIN 10 MG TABLET PO (22:38)
[2020-12-08] VITALS (16 sets, daily range): BP systolic 99–124; BP diastolic 68–84; PULSE 67–96; RESP 18–22; TEMP 36.3–36.6; O2SAT 90–95
[2020-12-08] MEDS: Calcium Carbonate 500 MG Tablet 1000 MG PO (05:20)
[2020-12-08] MEDS: 0.9% Saline Lock 10 ML Syringe IV (05:21)
[2020-12-08 06:20] LABS: Absolute Lymphocyte Count 0.63 X10^3/uL (0.83-4.51); Absolute Neutrophil Count 15.3 X10^3/uL (2.0-7.7); Basophil# 0.07 X10^3/uL; Basophil% 0.4 % (0-1); Eosinophil# 0.09 X10^3/uL; Eosinophils% 0.5 % (0-5); Hematocrit 42.4 % (37-47); Hemoglobin 13.8 g/dL (12.0-15.0); Lymphocyte # 0.63 X10^3/ul (0.83-4.51); Lymphocyte % 3.6 % (19-41); Mean Corp Hgb Conc 32.5 g/dL (32-36); Mean Corpuscular Hgb 30.4 pg (27.0-32.0); Mean Corpuscular Volume 93.4 fL (81-99); Mean Platelet Vol. 9.9 fl (6.2-12.0); Monocyte# 0.64 X10^3/uL; Monocyte% 3.6 % (0-10); NRBC Flagged by Analyzer 0 % (0-5); Neutrophil # 15.32 X10^3/uL (2.7-7.7); Neutrophil % 87.2 % (47-70); Platelet Count 206 K/mm3 (150-450); RBC Distribution Width CV 12.9 % (11.6-14.6); RBC Distribution Width SD 43.9 fl (35.1-43.9); Red Blood Count 4.54 M/mm3 (4.2-5.4); White Blood Count 17.6 K/mm3 (4.4-11.0)
--- NOTE | 2020-12-08 06:25 | PCM.PN.HOSP ---
Subjective Subjective: Patient with no acute events overnight per self and per nursing report. She has been up in the room and has been moving more with still some dyspnea with exertion but significantly lessened and mild cough. She has been on air Vo through the evening but transitioned to 6 L nasal cannula today but this is only at rest. Patient denies fevers, chills, nausea, emesis, abdominal pain, chest pain. Objective Data Objective Data Vital Signs: Vital Signs Temp Pulse Resp BP Pulse Ox 97.9 F 73 22 H 124/84 H 95 12/08/20 05:17 12/08/20 05:17 12/08/20 05:17 12/08/20 05:17 12/08/20 05:17 Oxygen Flow Rate (L/min) 40 Oxygen Delivery Method Airvo Weight: 126 lb 8.725 oz Body Mass Index (BMI) 25.4 Intake & Output: Intake and Output for Last 24 Hours 12/06/20 12/07/20 12/08/20 23:59 23:59 23:59 Intake Total 600 / 780 240 / 240 Output Total 200 / 500 650 / 650 Balance 600 / 780 40 / -260 -650 / -650 Lab / Micro Data Result Diagrams: 12/08/20 05:44 12/08/20 05:44 Labs: Laboratory Results - last 24 hr 12/07/20 12/07/20 12/08/20 06:10 06:10 05:44 WBC 16.5 H 17.6 H RBC 4.50 4.54 Hgb 13.5 13.8 Hct 41.0 42.4 MCV 91.1 93.4 MCH 30.0 30.4 MCHC 32.9 32.5 RDW Std Deviation 42.6 43.9 RDW Coeff of Leah 13.0 12.9 Plt Count 209 206 MPV 10.3 9.9 Immature Gran % (Auto) 4.400 H 4.700 H Neut % (Auto) 87.3 H 87.2 H Lymph % (Auto) 3.4 L 3.6 L [place] % (Auto) 3.3 3.6 Eos % (Auto) 1.1 0.5 Baso % (Auto) 0.5 0.4 Absolute Neuts (auto) 14.4 H 15.3 H Absolute Lymphs (auto) 0.56 L 0.63 L Nucleated RBC % 0 0 Differential Comment SCANNED Sodium 136 Potassium 4.5 Chloride 101 Carbon Dioxide 28.0 Anion Gap 7 BUN 32 H Creatinine 0.55 Estim Creat Clear Calc 35.45 Est GFR (MDRD) Af Amer 138 Est GFR (MDRD) Non-Af 114 BUN/Creatinine Ratio 57.9 H Glucose 105 Calcium 9.0 Total Bilirubin 0.60 AST 27 ALT 58 H Alkaline Phosphatase 100 Total Protein 6.3 L Albumin 2.2 L Globulin 4.1 Albumin/Globulin Ratio 0.5 L Micro: Microbiology 11/30/20 10:13 Blood Culture (Wb) - Anticubital Right Blood Culture - Final No growth in 5 days. 11/30/20 10:00 Blood Culture (Wb) - Anticubital Left Blood Culture - Final No growth in 5 days. 11/30/20 10:25 Urine, Clean Catch Urine Culture - Final Culture exhibits no growth. 11/30/20 10:15 Nasal Secretion SARS-CoV-2 Antigen (Rapid) - Final SARS-CoV-2 (COVID 19) Rhythm Strip Rhythm Strip: Sinus Tach Rate: 112 Ectopy: None Physical Exam Narrative Physical Examination: General: awake, alert, oriented x 3 and cooperative, seated upright in the PCU bed, NAD, airvo in place this am but transitioned to 6L NC later in the day. Skin: normal color, turgor, no icterus, cyanosis. HEENT: AT/NC, EOMI, PERRLA, MMM, remains on airvo this AM, 6L NC transition later in the day. Lungs: Improving but still diminished, coughing elicited with exam, no evidence of any distress, remains on airvo, no rales, ronchi or wheezing. Heart: Regular rate and rhythm; no gallop, rub audible. Abdomen: soft, NTTP, ND, normal BS. Extremities: no cyanosis, clubbing, or edema. Neurological: patient awake, alert, oriented as noted; cognitive function intact; pupils equally reactive to light and accomodation; cranial nerves II-XII grossly normal, moving all 4 extremities, no focal deficits, strength improving, moderately globally decreased. Psychiatric: affect appears normal, no acute evidence of depressive or anxiety feelings. Assessment & Plan Assessment/Plan (1) Acute respiratory failure with hypoxia: (2) COVID-19: (3) Metabolic encephalopathy: (4) Elevated troponin: (5) Lactic acidosis: PLAN: The patient is a 75 y/o F w/ PMHx: who presents to the [facility] ED on 11/30/20 with history of onset fatigue malaise, headaches, fever, chills, cough, dyspnea as well as body aches starting ~ 3 days prior to presentation with onset confusion and worsening respiratory status prompting ED evaluation. 1. Acute Hypoxic Respiratory Failure secondary to Acute Bilateral Pneumonia secondary to Suspected Acute Viral Syndrome, COVID-19: Patient to admitted to the ICU initially with PCU transition 12/05/20 given clinical improvement, pulmonary/medical care and infectious disease consulted, patient maintained on airvo oxygenation currently with wean as tolerated to NC and then if able RA, PRN albuterol, HOB, IS parameters, elevated d-dimer upon presentation and repeat, 12/04/20 transitioned from prophylactic lovenox to low dose BID apixiban per discussion with CC/ICU, LA initially 5-->2.6, LEI resolved, continue supportive care including q 2 hour turning, continue decadron x 10 doses, noted 11/30/[address] Zhou. Patient notes intention for vaccination once appropriate. Will need to complete 20 days of quarantine (Completion 12/11/20). 12/08/20 transition from airvo to 6L NC, noted to be 90% at rest. Discussed with CM that would need ambulatory trial prior to consideration discharge. Patient eager for home specific discharge. Requested walker for home also. Will plan at discharge transition to low dose eliquis x 14 days. 2. NSTEMI, likely secondary to #1, Demand Ischemia associated: Admission EKG without acute evidence of ischemia, trop 1.120-->1.670-->1.630, likely as noted secondary to #1, demand related with acute hypoxia secondary to COVID, maintained on telemetry, ECHO w/ EF 55 to 60%, mild diastolic dysfunction, mild AI, currently maintained on baby aspirin, initially was on prophylactic Lovenox transition to low-dose apixaban 12/04/2020 secondary to ongoing elevated D-dimer in the setting of #1. Given #1 cardiology consultation deferred and will plan follow-up with cardiology once #1 resolves on an outpatient basis. Patient BP low normal therefore not initiated on any beta-annabel therapy or JOON inhibitor/ARB. At discharge given improvement would plan addition low dose statin, allow as noted #1 eliquis low dose x 14 days with then ASA 81 mg daily transition with outpatient Cardiology follow-up once completed quarantine. 3. Acute kidney injury: Secondary to #1, poor intake complicated by acute illness. Admission BUN/Cr 38/1.04, prior baseline creatinine noted to be 0.6. Patient was judiciously hydrated given Covid presentation, 12/08/2020 BUN/creatinine 33/0.59, resolved, continue to trend. 4. Acute encephalopathy, metabolic: Patient with significant confusion initially upon presentation, likely associate with #1, #2, #3, CT head with no acute intracranial finding upon presentation, mental status returned to baseline, resolved. 5. Lactic acidosis: Admission lactic acid elevated, likely secondary to global ischemia given significant desaturation, initial 5.0 11/30/20-->2.6, improved, maintained on telemetry monitoring, cardiac enzyme trending as noted which was elevated consistent with NSTEMI likely secondary to demand. PCU transition without issue 12/05/20. 6. DVT prophylaxis: SCDs, low dose BID eliquis. 7. CODE STATUS: Full code. Multi Select Codes Visit Charges Visit Charges: 35991 Subs Hosp L2
[2020-12-08 07:08] LABS: ALB/GLOB Ratio 0.6 RATIO (0.9-2.4); AST(SGOT) 29 U/L (15-37); Alanine Aminotransfer ALT/SGPT 55 U/L (13-56); Albumin, Serum 2.3 g/dL (3.2-5.0); Alkaline Phosphatase 99 U/L (45-117); Anion Gap 10 (5-15); BUN 33 mg/dL (7-18); BUN/Creat Ratio 56.1 RATIO (10-20); Calcium,Total 8.8 mg/dL (8.5-10.1); Chloride 103 mmol/L (98-107); Creatinine, Serum 0.59 mg/dL (0.55-1.02); EST Glomerular Filtration Rate 106 mL/min (>60); Est Glom Filt Rate - Afr Amer 129 mL/min (>60); Estimated Creatinine Clearance 35.45 ml/min; Globulin 3.9 g/dL (2.2-4.2); Glucose 115 mg/dL (74-106); Potassium 4.9 mmol/L (3.5-5.1); Protein, Total 6.2 g/dL (6.4-8.2); Sodium Level 138 mmol/L (136-145)
[2020-12-08] MEDS: dexAMETHasone 4 MG Tablet 6 MG PO (10:25)
[2020-12-08] MEDS: Aspirin 81 MG TAB.CHEW PO (10:26)
[2020-12-08] MEDS: APIXABAN 2.5 MG TABLET PO ×2 (10:26→21:44)
--- NOTE | 2020-12-08 15:04 | CASEMGMT ---
Addendum entered by Ajay Aquino 12/08/20 15:52: Call received back from Adelita @ [facility]. She states they are most likely able to accept pt, but d/t pt still needing higher amt of O2, they would need to review pt again prior to accepting. She states they will f/u on Friday. D/C plan: Pt may be discharged home over the weekend if she is medically ready. Either [facility] will contact pt trust administrator CM to contact pt on Friday re: [facility]. Pt made aware of same. Original Note: RN HENRY NOTE: PT/OT recommending additional therapy. Call placed to pt and she was made aware. Pt states she is agreeable to [facility]. Pt was provided with list of [facility] providers including quality and resource use data and consistent with the patient's preferred geographic region, medical needs, and insurance network. The pt's preferred provider is [facility]. Call placed to [facility] and spoke w/Adelita. Referral made for SN and PT/OT. She was made aware pt may be medically ready for discharge over the weekend. Awaiting acceptance. Per Dr Rivera, pt to be discharged home on Eliquis x 2 weeks. LUIS FERNANDO FIGUEROA instructed pt on use of Eliquis 30-day savings card and questions answered. Card has been given to LUIS FERNANDO Oliveira, who has given the card to pt already. Therapy informed LUIS FERNANDO FIGUEROA that she will need a walker. Pt states she has a walker at home that was her husbands, but she does not think it will lower enough for her and she would like to get one of her own. Reviewed local DME companies and made aware [employer] [facility] is affilate of [facility] --pt agreeable to [facility]. Call placed to Ya @ [facility]. She was made aware pt needs a walker and may be ready for discharge over the weekend and also anticipate she will need O2 @ discharge. She states they will deliver the walker to pt's room today and then will deliver the O2 over the weekend, if needed. Script obtained from Dr Rivera and faxed to [facility]. D/C: Home w/[facility]. Pt will need Home O2 ambulatory testing prior to d/c. Green sheet on chart for HHC and w/instructions for Home O2 set-up, if pt qualifies. Destiny CORTES RN, CM
[2020-12-08] MEDS: Acetaminophen 325 MG Tablet 650 MG PO ×2 (15:19→21:44)
[2020-12-08] MEDS: MELATONIN 10 MG TABLET PO (21:44)
[2020-12-09] VITALS (18 sets, daily range): BP systolic 97–120; BP diastolic 66–77; PULSE 71–103; RESP 14–24; TEMP 36.2–37.1; O2SAT 83–98
--- NOTE | 2020-12-09 06:24 | PN.HOSP_ITS ---
Subjective Subjective: Patient overnight notes that she was felt secondary to incorrectly placed walker but fortunately did not and this has been corrected this morning. Patient also notes that she has been able to transition to continue nasal cannula with upon evaluation 6 L usage at rest but was noted to be at least 96 to 97% therefore oxygenation assessment performed and patient was decreased to 3 L at rest with 92% oxygenation but did require 7 L with 92% when she was active. Discussed the patient is clinically improving and will reassess oxygen status in a.m. and if remains < 6 L with activity with no obvious significant res piratory distress with plan discharge to home. Patient does note still some mild cough but minimal. Patient denies fevers, chills, nausea, emesis, abdominal pain, chest pain or recurrent or worsened dyspnea. Objective Data Objective Data Vital Signs: Vital Signs Temp Pulse Resp BP Pulse Ox 97.2 F L 71 14 107/70 96 12/09/20 03:00 12/09/20 03:00 12/09/20 03:00 12/09/20 03:00 12/09/20 03:00 Oxygen Flow Rate (L/min) 6 Oxygen Delivery Method Nasal Cannula Weight: 122 lb 2.177 oz Body Mass Index (BMI) 25.4 Intake & Output: Intake and Output for Last 24 Hours 12/07/20 12/08/20 12/09/20 23:59 23:59 23:59 Intake Total 240 / 240 120 / 120 Output Total 200 / 500 650 / 1100 450 / 450 Balance 40 / -260 -650 / -980 -330 / -330 Lab / Micro Data Result Diagrams: 12/09/20 07:04 12/09/20 07:04 Labs: Laboratory Results - last 24 hr 12/08/20 05:44 Sodium 138 Potassium 4.9 Chloride 103 Carbon Dioxide 25.0 Anion Gap 10 BUN 33 H Creatinine 0.59 Estim Creat Clear Calc 35.45 Est GFR (MDRD) Af Amer 129 Est GFR (MDRD) Non-Af 106 BUN/Creatinine Ratio 56.1 H Glucose 115 H Calcium 8.8 Total Bilirubin 0.60 AST 29 ALT 55 Alkaline Phosphatase 99 Total Protein 6.2 L Albumin 2.3 L Globulin 3.9 Albumin/Globulin Ratio 0.6 L Micro: Microbiology 11/30/20 10:13 Blood Culture (Wb) - Anticubital Right Blood Culture - Final No growth in 5 days. 11/30/20 10:00 Blood Culture (Wb) - Anticubital Left Blood Culture - Final No growth in 5 days. 11/30/20 10:25 Urine, Clean Catch Urine Culture - Final Culture exhibits no growth. 11/30/20 10:15 Nasal Secretion SARS-CoV-2 Antigen (Rapid) - Final SARS-CoV-2 (COVID 19) Rhythm Strip Rhythm Strip: Sinus Tach Rate: 112 Ectopy: None Physical Exam Narrative Physical Examination: General: awake, alert, oriented x 3 and cooperative, seated upright in the PCU bed, NAD, transition to nasal cannula, in place, noted to be 96 to 97% on 6 L during evaluation therefore decreased to 3 L with noted 92% Skin: normal color, turgor, no icterus, cyanosis. HEENT: AT/NC, EOMI, PERRLA, MMM, transition to nasal cannula as noted. Lungs: Improving but still diminished, no evidence of any distress, no rales, ronchi or wheezing. Heart: Regular rate and rhythm; no gallop, rub audible. Abdomen: soft, NTTP, ND, normal BS. Extremities: no cyanosis, clubbing, or edema. Neurological: patient awake, alert, oriented as noted; cognitive function intact ; pupils equally reactive to light and accomodation; cranial nerves II-XII grossly normal, moving all 4 extremities, no focal deficits, strength improving, moderately globally decreased. Psychiatric: affect appears normal, no acute evidence of depressive or anxiety feelings. Assessment & Plan Assessment/Plan (1) Acute respiratory failure with hypoxia: (2) COVID-19: (3) Metabolic encephalopathy: (4) Elevated troponin: (5) Lactic acidosis: PLAN: The patient is a 75 y/o F w/ PMHx: who presents to the [facility] ED on 11/30/20 with history of onset fatigue malaise, headaches, fever, chills, cough, dyspnea as well as body aches starting ~ 3 days prior to presentation with onset confusion and worsening respiratory status prompting ED evaluation. 1. Acute Hypoxic Respiratory Failure secondary to Acute Bilateral Pneumonia secondary to Suspected Acute Viral Syndrome, COVID-19: Patient to admitted to the ICU initially with PCU transition 12/05/20 given clinical improvement, pulmonary/medical care and infectious disease consulted, patient maintained on airvo oxygenation currently with wean as tolerated to NC and then if able RA, PRN albuterol, HOB, IS parameters, elevated d-dimer upon presentation and repeat, 12/04/20 transitioned from prophylactic lovenox to low dose BID apixiban per discussion with CC/ICU, LA initially 5-->2.6, LEI resolved, continue supportive care including q 2 hour turning, continue decadron x 10 doses, noted 11/30/[address] Zhou. Patient notes intention for vaccination once appropriate. Will need to complete 20 days of quarantine (Completion 12/11/20). 12/08/20 transition from airvo to 6L NC, noted to be 90% at rest; however, 12/09/2020 continued improvement with oxygenation assessment with 3 L nasal cannula at rest noted to be 92% however with exertion still requiring 7 L to be 92% with activity. We will plan retrial 12/11/2019 1 AM and if less than 6 L with activity would be appropriate for discharge. Patient walker prescription given and already at bedside. Will plan at discharge transition to low dose eliquis x 14 days given acute presentation with Covid and significantly elevated D-dimer with notable medical history. 2. NSTEMI, likely secondary to #1, Demand Ischemia associated: Admission EKG without acute evidence of ischemia, trop 1.120-->1.670-->1.630, likely as noted secondary to #1, demand related with acute hypoxia secondary to COVID, maintained on telemetry, ECHO w/ EF 55 to 60%, mild diastolic dysfunction, mild AI, currently maintained on baby aspirin, initially was on prophylactic Lovenox transition to low-dose apixaban 12/04/2020 secondary to ongoing elevated D-dimer in the setting of #1. Given #1 cardiology consultation deferred and will plan follow-up with cardiology once #1 resolves on an outpatient basis. Patient BP low normal therefore not initiated on any beta-annabel therapy or JOON inhibitor/ARB. At discharge given improvement would plan addition low dose statin, allow as noted #1 eliquis low dose x 14 days with then ASA 81 mg daily transition with outpatient Cardiology follow-up once completed quarantine for assessment and potential consideration future stress versus cardiac catheterization. 3. Acute kidney injury: Secondary to #1, poor intake complicated by acute illness. Admission BUN/Cr 38/1.04, prior baseline creatinine noted to be 0.6. Patient was judiciously hydrated given Covid presentation, 12/09/2020 BUN/creatinine 33/0.59, resolved, continue to trend. 4. Acute encephalopathy, metabolic: Patient with significant confusion initially upon presentation, likely associate with #1, #2, #3, CT head with no acute intracranial finding upon presentation, mental status returned to baseline, resolved. 5. Lactic acidosis: Admission lactic acid elevated, likely secondary to global ischemia given significant desaturation, initial 5.0 11/30/20-->2.6, improved, maintained on telemetry monitoring, cardiac enzyme trending as noted which was elevated consistent with NSTEMI likely secondary to demand. PCU transition without issue 12/05/20. 6. DVT prophylaxis: SCDs, low dose BID eliquis. 7. CODE STATUS: Full code. Visit Charges Inpatient E&M: 61603 Subs Hosp L2
[2020-12-09 08:01] LABS: Absolute Lymphocyte Count 0.71 X10^3/uL (0.83-4.51); Basophil# 0.08 X10^3/uL; Basophil% 0.4 % (0-1); Eosinophil# 0.29 X10^3/uL; Eosinophils% 1.6 % (0-5); Hematocrit 42.3 % (37-47); Hemoglobin 13.8 g/dL (12.0-15.0); Lymphocyte # 0.71 X10^3/ul (0.83-4.51); Lymphocyte % 3.8 % (19-41); Mean Corp Hgb Conc 32.6 g/dL (32-36); Mean Corpuscular Hgb 30.5 pg (27.0-32.0); Mean Corpuscular Volume 93.4 fL (81-99); Monocyte# 0.93 X10^3/uL; NRBC Flagged by Analyzer 0 % (0-5); Neutrophil % 86.2 % (47-70); Platelet Count 219 K/mm3 (150-450); RBC Distribution Width CV 13.1 % (11.6-14.6); RBC Distribution Width SD 44.4 fl (35.1-43.9); Red Blood Count 4.53 M/mm3 (4.2-5.4); White Blood Count 18.6 K/mm3 (4.4-11.0)
[2020-12-09 08:18] LABS: ALB/GLOB Ratio 0.6 RATIO (0.9-2.4); AST(SGOT) 31 U/L (15-37); Alanine Aminotransfer ALT/SGPT 67 U/L (13-56); Albumin, Serum 2.2 g/dL (3.2-5.0); Alkaline Phosphatase 100 U/L (45-117); Anion Gap 4 (5-15); BUN 33 mg/dL (7-18); BUN/Creat Ratio 56.2 RATIO (10-20); Calcium,Total 8.8 mg/dL (8.5-10.1); Chloride 103 mmol/L (98-107); Creatinine, Serum 0.59 mg/dL (0.55-1.02); EST Glomerular Filtration Rate 106 mL/min (>60); Est Glom Filt Rate - Afr Amer 129 mL/min (>60); Estimated Creatinine Clearance 35.45 ml/min; Globulin 3.8 g/dL (2.2-4.2); Glucose 94 mg/dL (74-106); Potassium 4.6 mmol/L (3.5-5.1); Sodium Level 137 mmol/L (136-145)
[2020-12-09] MEDS: dexAMETHasone 4 MG Tablet 6 MG PO (09:24)
[2020-12-09] MEDS: APIXABAN 2.5 MG TABLET PO ×2 (09:24→21:19)
[2020-12-09] MEDS: Aspirin 81 MG TAB.CHEW PO (09:24)
[2020-12-09] MEDS: MELATONIN 10 MG TABLET PO (21:19)
[2020-12-09] MEDS: Acetaminophen 325 MG Tablet 650 MG PO (21:19)
[2020-12-10] VITALS (15 sets, daily range): BP systolic 98–132; BP diastolic 65–91; PULSE 69–95; RESP 18–23; TEMP 36.5–36.9; O2SAT 85–95
[2020-12-10] MEDS: MENTHOL 226.8 GM JAR 1 APPLIC TOPICAL ×2 (04:37→20:59)
--- NOTE | 2020-12-10 06:29 | PN.HOSP_ITS ---
Subjective Subjective: Patient successfully day prior remained on 3 L nasal cannula at rest however still notable increased work of breathing with minimal activity in her room requiring at least 7 L to maintain low 90s saturation. Repeat oxygenation trial this a.m. similar. Patient with several questions regarding her discharge and still remains insistent that she wants to return to home once appropriate. Patient understands that goal is to be 6 L or less with activity and to not appear to have significant increased work of breathing which patient has had with minimal walking in her room. Patient denies fevers, chills, nausea, emesis, abdominal pain, chest pain or dyspnea. Objective Data Objective Data Vital Signs: Vital Signs Temp Pulse Resp BP Pulse Ox 97.9 F 69 19 H 132/91 H 95 12/10/20 04:34 12/10/20 04:34 12/10/20 04:34 12/10/20 04:34 12/10/20 04:34 Oxygen Flow Rate (L/min) [ 4 AMBULATING with Oxygen #2] Oxygen Flow Rate (L/min) [ 7 AMBULATING with Oxygen #1] Oxygen Flow Rate (L/min) [At 3 REST with Oxygen] Oxygen Flow Rate (L/min) [At 0 REST on Room Air] Oxygen Flow Rate (L/min) 3 Oxygen Delivery Method Nasal Cannula Weight: 122 lb 2.177 oz Body Mass Index (BMI) 25.4 Intake & Output: Intake and Output for Last 24 Hours 12/08/20 12/09/20 12/10/20 23:59 23:59 23:59 Intake Total 360 / 660 300 / 300 Output Total 650 / 1100 1200 / 1500 300 / 300 Balance -650 / -980 -840 / -840 0 / 0 Lab / Micro Data Result Diagrams: 12/10/20 05:37 12/10/20 05:37 Labs: Laboratory Results - last 24 hr 12/09/20 12/09/20 07:04 07:04 WBC 18.6 H RBC 4.53 Hgb 13.8 Hct 42.3 MCV 93.4 MCH 30.5 MCHC 32.6 RDW Std Deviation 44.4 H RDW Coeff of Leah 13.1 Plt Count 219 MPV 10.0 Immature Gran % (Auto) 3.000 H Neut % (Auto) 86.2 H Lymph % (Auto) 3.8 L [place] % (Auto) 5.0 Eos % (Auto) 1.6 Baso % (Auto) 0.4 Absolute Neuts (auto) 16.0 H Absolute Lymphs (auto) 0.71 L Nucleated RBC % 0 Sodium 137 Potassium 4.6 Chloride 103 Carbon Dioxide 30.0 Anion Gap 4 L BUN 33 H Creatinine 0.59 Estim Creat Clear Calc 35.45 Est GFR (MDRD) Af Amer 129 Est GFR (MDRD) Non-Af 106 BUN/Creatinine Ratio 56.2 H Glucose 94 Calcium 8.8 Total Bilirubin 0.60 AST 31 ALT 67 H Alkaline Phosphatase 100 Total Protein 6.0 L Albumin 2.2 L Globulin 3.8 Albumin/Globulin Ratio 0.6 L Micro: Microbiology 11/30/20 10:13 Blood Culture (Wb) - Anticubital Right Blood Culture - Final No growth in 5 days. 11/30/20 10:00 Blood Culture (Wb) - Anticubital Left Blood Culture - Final No growth in 5 days. 11/30/20 10:25 Urine, Clean Catch Urine Culture - Final Culture exhibits no growth. 11/30/20 10:15 Nasal Secretion SARS-CoV-2 Antigen (Rapid) - Final SARS-CoV-2 (COVID 19) Rhythm Strip Rhythm Strip: Sinus Tach Rate: 112 Ectopy: None Physical Exam Narrative Physical Examination: General: awake, alert, oriented x 3 and cooperative, seated upright in the PCU bed, NAD, transition to nasal cannula, this AM 3L NC at rest but with exertion still requiring 7L NC and low 90 with minimal exertion. Skin: normal color, turgor, no icterus, cyanosis. HEENT: AT/NC, EOMI, PERRLA, MMM, continued NC. Lungs: Diminished, no evidence of any distress, no rales, ronchi or wheezing. Heart: Regular rate and rhythm; no gallop, rub audible. Abdomen: soft, NTTP, ND, normal BS. Extremities: no cyanosis, clubbing, or edema. Neurological: patient awake, alert, oriented as noted; cognitive function intact; pupils equally reactive to light and accomodation; cranial nerves II-XII grossly normal, moving all 4 extremities, no focal deficits, strength improving, moderately globally decreased. Psychiatric: affect appears normal, no acute evidence of depressive or anxiety feelings. Cardio regular rate, regular rhythm, S1 normal heart sound and S2 normal heart sound GI normal to inspection, nondistended, normoactive bowel sounds, soft to palpation, non-tender and non-distended Extremity normal to inspection and no clubbing, cyanosis or edema Skin no rashes or lesions noted and no wounds Neuro Neuro Narrative: no clonus. normal paterllar DTRs Psych affect normal Assessment & Plan Assessment/Plan (1) Acute respiratory failure with hypoxia: (2) COVID-19: (3) Metabolic encephalopathy: (4) Elevated troponin: (5) Lactic acidosis: PLAN: The patient is a 75 y/o F w/ PMHx: who presents to the [facility] ED on 11/30/20 with history of onset fatigue malaise, headaches, fever, chills, cough, dyspnea as well as body aches starting ~ 3 days prior to presentation with onset confusion and worsening respiratory status prompting ED evaluation. 1. Acute Hypoxic Respiratory Failure secondary to Acute Bilateral Pneumonia secondary to Suspected Acute Viral Syndrome, COVID-19: Patient to admitted to the ICU initially with PCU transition 12/05/20 given clinical improvement, pulmonary/medical care and infectious disease consulted, patient maintained on airvo oxygenation currently with wean as tolerated to NC and then if able RA, PRN albuterol, HOB, IS parameters, elevated d-dimer upon presentation and repeat, 12/04/20 transitioned from prophylactic lovenox to low dose BID apixiban per discussion with CC/ICU, LA initially 5-->2.6, LEI resolved, continue supportive care including q 2 hour turning, continue decadron x 10 doses, noted 11/30/[address] Zhou. Patient notes intention for vaccination once appropriate. Will need to complete 20 days of quarantine (Completion 12/11/20). 12/08/20 transition from airvo to 6L NC, noted to be 90% at rest; however, 12/09/2020 continued improvement with oxygenation assessment with 3 L nasal cannula at rest noted to be 92% however with exertion still requiring 7 L to be 92% with activity, retrial 12/11/2019 AM with still 7L NC with low 90 oxygenation and with minimal exertion. Patient still insistent for home discharge, declined SNF. Currently using walker and ordered one with one for home at bedside. Will plan at discharge transition to low dose eliquis x 14 days given acute presentation with Covid and significantly elevated D-dimer with notable medical history. 2. NSTEMI, likely secondary to #1, Demand Ischemia associated: Admission EKG without acute evidence of ischemia, trop 1.120-->1.670-->1.630, likely as noted secondary to #1, demand related with acute hypoxia secondary to COVID, maintained on telemetry, ECHO w/ EF 55 to 60%, mild diastolic dysfunction, mild AI, currently maintained on baby aspirin, initially was on prophylactic Lovenox transition to low-dose apixaban 12/04/2020 secondary to ongoing elevated D-dimer in the setting of #1. Given #1 cardiology consultation deferred and will plan follow-up with cardiology once #1 resolves on an outpatient basis. Patient BP low normal therefore not initiated on any beta-annabel therapy or JOON inhibitor/ARB. At discharge given improvement would plan addition low dose statin, allow as noted #1 eliquis low dose x 14 days with then ASA 81 mg daily transition with outpatient Cardiology follow-up once completed quarantine for assessment and potential consideration future stress versus cardiac catheterization. 3. Acute kidney injury: Secondary to #1, poor intake complicated by acute illness. Admission BUN/Cr 38/1.04, prior baseline creatinine noted to be 0.6. Patient was judiciously hydrated given Covid presentation, 12/10/2020 BUN/creatinine 29/0.55, resolved, continue to trend. 4. Acute encephalopathy, metabolic: Patient with significant confusion initially upon presentation, likely associate with #1, #2, #3, CT head with no acute intracranial finding upon presentation, mental status returned to baseline, resolved. 5. Lactic acidosis: Admission lactic acid elevated, likely secondary to global ischemia given significant desaturation, initial 5.0 11/30/20-->2.6, improved, maintained on telemetry monitoring, cardiac enzyme trending as noted which was elevated consistent with NSTEMI likely secondary to demand. PCU transition without issue 12/05/20. 6. DVT prophylaxis: SCDs, low dose BID eliquis. 7. CODE STATUS: Full code. Visit Charges Inpatient E&M: 01673 Subs Hosp L2
[2020-12-10 06:50] LABS: Absolute Lymphocyte Count 0.72 X10^3/uL (0.83-4.51); Absolute Neutrophil Count 12.4 X10^3/uL (2.0-7.7); Basophil# 0.03 X10^3/uL; Basophil% 0.2 % (0-1); Eosinophil# 0.12 X10^3/uL; Eosinophils% 0.8 % (0-5); Hematocrit 39.7 % (37-47); Hemoglobin 12.7 g/dL (12.0-15.0); Lymphocyte # 0.72 X10^3/ul (0.83-4.51); Mean Corpuscular Hgb 29.4 pg (27.0-32.0); Mean Corpuscular Volume 91.9 fL (81-99); Monocyte# 0.81 X10^3/uL; Monocyte% 5.6 % (0-10); NRBC Flagged by Analyzer 0 % (0-5); Neutrophil # 12.38 X10^3/uL (2.7-7.7); Neutrophil % 85.5 % (47-70); Platelet Count 197 K/mm3 (150-450); RBC Distribution Width CV 13.1 % (11.6-14.6); RBC Distribution Width SD 43.9 fl (35.1-43.9); Red Blood Count 4.32 M/mm3 (4.2-5.4); White Blood Count 14.5 K/mm3 (4.4-11.0)
[2020-12-10 07:30] LABS: ALB/GLOB Ratio 0.6 RATIO (0.9-2.4); AST(SGOT) 27 U/L (15-37); Alanine Aminotransfer ALT/SGPT 68 U/L (13-56); Albumin, Serum 2.1 g/dL (3.2-5.0); Alkaline Phosphatase 97 U/L (45-117); Anion Gap 6 (5-15); BUN 29 mg/dL (7-18); Calcium,Total 8.7 mg/dL (8.5-10.1); Chloride 102 mmol/L (98-107); Creatinine, Serum 0.55 mg/dL (0.55-1.02); EST Glomerular Filtration Rate 116 mL/min (>60); Est Glom Filt Rate - Afr Amer 140 mL/min (>60); Estimated Creatinine Clearance 35.45 ml/min; Globulin 3.7 g/dL (2.2-4.2); Glucose 101 mg/dL (74-106); Potassium 4.7 mmol/L (3.5-5.1); Protein, Total 5.8 g/dL (6.4-8.2); Sodium Level 136 mmol/L (136-145)
[2020-12-10] MEDS: Aspirin 81 MG TAB.CHEW PO (08:16)
[2020-12-10] MEDS: APIXABAN 2.5 MG TABLET PO ×2 (08:16→20:59)
[2020-12-10] MEDS: Calcium Carbonate 500 MG Tablet 1000 MG PO (20:52)
[2020-12-10] MEDS: MELATONIN 10 MG TABLET PO (20:59)
[2020-12-11] VITALS (8 sets, daily range): BP systolic 98–114; BP diastolic 68–76; PULSE 94–102; RESP 18; TEMP 36.4–36.9; O2SAT 87–98
[2020-12-11 07:04] LABS: Absolute Lymphocyte Count 0.83 X10^3/uL (0.83-4.51); Absolute Neutrophil Count 10.9 X10^3/uL (2.0-7.7); Basophil# 0.06 X10^3/uL; Basophil% 0.4 % (0-1); Eosinophil# 0.35 X10^3/uL; Eosinophils% 2.6 % (0-5); Hematocrit 41.7 % (37-47); Hemoglobin 13.6 g/dL (12.0-15.0); Lymphocyte # 0.83 X10^3/ul (0.83-4.51); Lymphocyte % 6.2 % (19-41); Mean Corp Hgb Conc 32.6 g/dL (32-36); Mean Corpuscular Hgb 30.7 pg (27.0-32.0); Mean Corpuscular Volume 94.1 fL (81-99); Mean Platelet Vol. 9.7 fl (6.2-12.0); Monocyte# 0.83 X10^3/uL; Monocyte% 6.2 % (0-10); NRBC Flagged by Analyzer 0 % (0-5); Neutrophil # 10.86 X10^3/uL (2.7-7.7); Neutrophil % 81.2 % (47-70); Platelet Count 204 K/mm3 (150-450); RBC Distribution Width CV 13.2 % (11.6-14.6); RBC Distribution Width SD 45.1 fl (35.1-43.9); Red Blood Count 4.43 M/mm3 (4.2-5.4); White Blood Count 13.4 K/mm3 (4.4-11.0)
[2020-12-11 07:31] LABS: ALB/GLOB Ratio 0.6 RATIO (0.9-2.4); AST(SGOT) 24 U/L (15-37); Alanine Aminotransfer ALT/SGPT 60 U/L (13-56); Albumin, Serum 2.1 g/dL (3.2-5.0); Alkaline Phosphatase 101 U/L (45-117); Anion Gap 7 (5-15); BUN 28 mg/dL (7-18); BUN/Creat Ratio 45.5 RATIO (10-20); Calcium,Total 8.8 mg/dL (8.5-10.1); Chloride 101 mmol/L (98-107); Creatinine, Serum 0.62 mg/dL (0.55-1.02); EST Glomerular Filtration Rate 101 mL/min (>60); Est Glom Filt Rate - Afr Amer 122 mL/min (>60); Estimated Creatinine Clearance 35.45 ml/min; Globulin 3.8 g/dL (2.2-4.2); Glucose 116 mg/dL (74-106); Potassium 4.2 mmol/L (3.5-5.1); Protein, Total 5.9 g/dL (6.4-8.2); Sodium Level 135 mmol/L (136-145)
--- NOTE | 2020-12-11 08:00 | CASEMGMT ---
Late entry for 12/09/20- [facility] states they are unable to take pt due to complexity of pt case and no primary care physician to follow. Further clarified and PCP was notified on Friday but [facility] had not heard back. CM to follow.
[2020-12-11] MEDS: APIXABAN 2.5 MG TABLET PO (09:00)
[2020-12-11] MEDS: Aspirin 81 MG TAB.CHEW PO (09:00)
--- NOTE | 2020-12-11 13:24 | CASEMGMT ---
[facility] Adelita called and states they are able to accept pt now for services. RN HENRY called to pt room to notify of HH acceptance. Pt states her walker was delivered on Friday. Made pt aware the nurse will fax O2 referral and that it will be arriving to the hospital and the concentrator will be set up once pt is home. She verbalizes understanding. 1132- Faxed referral for O2 and made tc to [place] to confirm receipt. 1521- TC to pt pharmacy to verify cost of Eliquis. Cost is $84.57. TC to pt room. Pt has eliquis card that was previously given to her. She is aware to use for medication and denies further needs.
--- NOTE | 2020-12-11 14:53 | PCM.DC ---
Discharge Instructions Diet Discharge Diet: No restrictions Activity Discharge Activity: Return to Normal Activity Follow Up Care Test Results: Test results from this visit will be discussed in further detail at your follow-up appointment, if applicable. Discharge Plan Admission Admit Date/Time: 11/30/20 12:20 Primary Reason for Your Visit: Acute COVID-19 pneumonia Attending Provider: Maryellen Stephen Primary Care Provider: Bridger Garrido Consulting Providers: Diego Zhou ; Juan Daniel Sin ; Ladarius Burrell ; Bibiana Ny MAINTENANCE ANALYST Instructions Patient Instructions: Coronavirus Disease 2019 (COVID-19): Overview, Convalescent Plasma Donation for COVID-19 Additional Instructions / Restrictions: You are being discharged with oxygen. Continue to use your oxygen all the time. Continue to use your incentive spirometer. Continue to remain active and eat healthy. Let your doctor know if you develop fever >101.3F or have progressive worsening shortness of breath. Follow-up with your primary care doctor and also with pulmonology to have your continued oxygen use reevaluated. Be careful of going near open flames whilst on oxygen. Complete your Decadron as prescribed. Continue to use your inhaler as needed for shortness of breath. Continue to quarantine for 20 days total from the start of your symptoms. Discharge Orders/Prescriptions Prescriptions: New Eliquis 2.5 mg Tablet 2.5 mg PO BID Qty: 60 RF: 0 Continued multivitamin Capsule 1 cap PO DAILY RF: 0 Discontinued Excedrin Extra Strength 250-250-65 mg Tablet 2 tab PO Q6H PRN (Reason: Pain) RF: 0 Referrals / Follow Up: Care Physician,No Primary [NON-STAFF] - Bibiana Ny NP, MAINTENANCE ANALYST-C [Nurse Practitioner] - Within 2 Weeks Disposition Disposition (needs filled in before D/C Order can be placed): Home Health Service
--- NOTE | 2020-12-11 14:54 | DS.PCM_ITS ---
Providers Date of Admission: 11/30/20 Primary Care Physician: Dr. Bridger Garrido MD Consultations 11/30/20 12:20 Consult: Infectious Disease Routine Consulting Provider: Diego Zhou Reason for Consult: Covid-19 EMERGENT Consult: No Notified: Yes Date Notified:: 11/30/20 Time Notified: 12:10 Method of Notification: Text Consult: [place]ander / Pulmonary Medicine Routine Consulting Provider: Pulmonary Medicine [facility] Reason for Consult: Covid-19 EMERGENT Consult: No Notified: Yes Date Notified:: 11/30/20 Time Notified: 12:10 Method of Notification: Text Reason For Visit: HYPOXIC RESPIRATORY FAILURE, COVID19 PNEUMONIA Diagnosis Discharge Diagnosis (1) Acute respiratory failure with hypoxia: Status: Acute Code(s): J96.01 - Acute respiratory failure with hypoxia (2) COVID-19: Status: Acute Code(s): U07.1 - COVID-19 (3) Metabolic encephalopathy: Status: Resolved Code(s): G93.41 - Metabolic encephalopathy (4) Elevated troponin: Status: Acute Code(s): R77.8 - Other specified abnormalities of plasma proteins (5) Lactic acidosis: Status: Resolved Code(s): E87.2 - Acidosis Medications at Discharge Home Medications multivitamin 1 cap PO DAILY 11/30/20 apixaban [Eliquis] 2.5 mg PO BID #60 tab 12/11/20 Hospital Course Operations None Procedures 2-D Echocardiogram Summary of Care Provided Minutes Spent on Discharge: 45 Hospital Course: 75-year-old female with multiple comorbidities who was admitted on 11/30/20 with fatigue, generalized malaise, headaches, fever, chills, cough and shortness of breath that started around 11/21/20. Patient presented to the emergency department with confusion and worsening respiratory status. Her management has been that of acute hypoxic respiratory failure secondary to acute bilateral pneumonia secondary acute COVID-19 pneumonia. She was managed initially in the ICU, completed remdesivir and Decadron. She was seen by credit correspondence clerk as well as infectious disease. Patient also had acute non-STEMI felt to be secondary to demand ischemia. She had elevated troponins and was transitioned to apixaban from Lovenox. Patient to follow-up with cardiology and PCP within 2 weeks. She should likely be on aspirin and statin after she sees cardiology. Patient remained on oxygen and qualified to be discharged home on 3 L of oxygen. She follows also with pulmonology in the outpatient. Physical Exam Narrative Physical exam: General: Alert, Oriented x3, Cooperative,frail, well developed, on 3 L of oxygen HEENT: Atraumatic Oral: Moist Mucosa Neck: Supple Lungs: Diminished Cardiovascular: HS I+II, regular, no murmurs Abdomen: Bowel Sounds Present, Soft, Non Tender Extremities: No edema Skin: No rashes, No breakdown Neurological: Grossly intact Psych/Mental Status: Appropriate ABG / Lab / Microbiology Data Result Diagrams: 12/11/20 06:56 12/11/20 06:56 Laboratory: Laboratory Results - last 24 hr 12/11/20 12/11/20 06:56 06:56 WBC 13.4 H RBC 4.43 Hgb 13.6 Hct 41.7 MCV 94.1 MCH 30.7 MCHC 32.6 RDW Std Deviation 45.1 H RDW Coeff of Leah 13.2 Plt Count 204 MPV 9.7 Immature Gran % (Auto) 3.400 H Neut % (Auto) 81.2 H Lymph % (Auto) 6.2 L [place] % (Auto) 6.2 Eos % (Auto) 2.6 Baso % (Auto) 0.4 Absolute Neuts (auto) 10.9 H Absolute Lymphs (auto) 0.83 Nucleated RBC % 0 Sodium 135 L Potassium 4.2 Chloride 101 Carbon Dioxide 27.0 Anion Gap 7 BUN 28 H Creatinine 0.62 Estim Creat Clear Calc 35.45 Est GFR (MDRD) Af Amer 122 Est GFR (MDRD) Non-Af 101 BUN/Creatinine Ratio 45.5 H Glucose 116 H Calcium 8.8 Total Bilirubin 0.70 AST 24 ALT 60 H Alkaline Phosphatase 101 Total Protein 5.9 L Albumin 2.1 L Globulin 3.8 Albumin/Globulin Ratio 0.6 L Microbiology: Microbiology 11/30/20 10:13 Blood Culture (Wb) - Anticubital Right Blood Culture - Final No growth in 5 days. 11/30/20 10:00 Blood Culture (Wb) - Anticubital Left Blood Culture - Final No growth in 5 days. 11/30/20 10:25 Urine, Clean Catch Urine Culture - Final Culture exhibits no growth. 11/30/20 10:15 Nasal Secretion SARS-CoV-2 Antigen (Rapid) - Final SARS-CoV-2 (COVID 19) D/C Instructions Discharge Diet: No restrictions Discharge Activity: Return to Normal Activity Meaningful Use Info Meaningful Use Diagnoses (Choose all that apply): None applicable Discharge Plan Admission Admit Date/Time: 11/30/20 12:20 Primary Reason for Your Visit: Acute COVID-19 pneumonia Attending Provider: Maryellen Stephen Primary Care Provider: Bridger Garrido Consulting Providers: Diego Zhou ; Juan Daniel Sin ; Ladarius Burrell ; Amos Ny DEPARTMENT OF MATHEMATICS CHAIR Instructions Patient Instructions: Coronavirus Disease 2019 (COVID-19): Overview, Convalescent Plasma Donation for COVID-19 Additional Instructions / Restrictions: You are being discharged with oxygen. Continue to use your oxygen all the time. Continue to use your incentive spirometer. Continue to remain active and eat healthy. Let your doctor know if you develop fever >101.3F or have progressive worsening shortness of breath. Follow-up with your primary care doctor and also with pulmonology to have your continued oxygen use reevaluated. Be careful of going near open flames whilst on oxygen. Complete your Decadron as prescribed. Continue to use your inhaler as needed for shortness of breath. Continue to quarantine for 20 days total from the start of your symptoms. Discharge Orders/Prescriptions Prescriptions: New Eliquis 2.5 mg Tablet 2.5 mg PO BID Qty: 60 RF: 0 Continued multivitamin Capsule 1 cap PO DAILY RF: 0 Discontinued Excedrin Extra Strength 250-250-65 mg Tablet 2 tab PO Q6H PRN (Reason: Pain) RF: 0 Referrals / Follow Up: Chapincito Bruner MD [STAFF PHYSICIAN] - Within 2 Weeks Care Physician,No Primary [NON-STAFF] - Bibiana Ny NP, DEPARTMENT OF MATHEMATICS CHAIR-C [Nurse Practitioner] - Within 2 Weeks Disposition Disposition (needs filled in before D/C Order can be placed): Home, self care Visit Charges Inpatient E&M: [id number] Disch Hosp
--- NOTE | 2020-12-12 13:46 | CASEMGMT ---
RN CM Discharge COVID F/U Phone Call LACE: 8 Strata: 2 Discharge date: 12/11/20 Call date: 12/12/20 Call time: [phone] Admission dx: Hypoxic resp failure, COVID 19 pna Pt states has been doing 'pretty good' since discharge. Pt states no questions regarding discharge instructions/medications. Pt states that [facility] nurse is there at this time and pt is aware that they can help if pt has any further questions/concerns. CM ended call since [facility] doing start of care. SStaten RN CM
== END 2020-12-11 17:28 | disposition home or self-care (01) | DRG 871 ==
LOC: ED 10:28 → ICU 18:21 → PCU 12-06 07:06
PROVIDERS: Family Medicine; Internal Medicine Critical Care Medicine; Internal Medicine Infectious Disease; Emergency Provider Emergency Medicine; PCP Family Medicine; Visit Provider Internal Medicine
DX: A41.89 Other specified sepsis (principal); G93.41 Metabolic encephalopathy; J96.01 Acute respiratory failure with hypoxia; U07.1 COVID-19; J12.82 Pneumonia due to coronavirus disease 2019; I21.A1 Myocardial infarction type 2; N17.9 Acute kidney failure, unspecified; R65.20 Severe sepsis without septic shock; N81.10 Cystocele, unspecified; M06.9 Rheumatoid arthritis, unspecified; Z87.19 Personal history of other diseases of the digestive system; Z71.89 Other specified counseling
CPT/HCPCS: 31720; 36415; 36600; 51702; 70450; 71045; 71275; 80053; 81001; 82550; 82803; 83605; 84145; 84484; 85025; 85027; 85379; 85610; 85730; 87040; 87086; 87426; 92526; 92610; 93005; 93306; 94002; 94003; 94660; 94762; 97110; 97116; 97163; 97166; 97530; 97535; 97802; 97803; 99251; 99285; J7030; Q9967; A4216; G0463; J1940